=== PATIENT | male | born 1940 | race Caucasian/White ===

== ENCOUNTER 2018-02-07 09:50 | Inpatient (IN) | payer OTHER ==
--- NOTE | 2018-02-07 11:31 | RAD REPORT ---
EXAM DESCRIPTION: RAD - Knee Right 3 View - 02/07/2018 11:26 am CLINICAL HISTORY: Knee pain COMPARISON: None. FINDINGS: Arthritic changes are present, greatest in the medial joint compartment with joint space l oss and small osteophytes. Small suprapatellar joint effusion is seen. Slight atherosclerosis is note d.
[2018-02-07] MEDS ORDERED: ONDANSETRON 4 MG/2 ML VIAL ONE (12:10)
[2018-02-07] MEDS ORDERED: FENTANYL CITR 100 MCG/2 ML ONE ×2 (12:10→16:44)
[2018-02-07] MEDS ORDERED: LIDOCAINE 1% 20 ML MDV ONE (12:30)
[2018-02-07 13:08] LABS: Absolute Lymphocytes (CBC) 1.5 K/uL (0.7-4.9); Absolute Monocytes 1.5 K/uL (0.1-1.3); Absolute Neutrophil 9.3 K/uL (1.8-8.0); Basophils % 1.2 % (0-1.3); Eosinophils % 3.2 % (0-4.4); Hematocrit 42.2 % (39.6-49.0); Lymphocytes % 11.9 % (15.3-44.8); MCH 29.9 pg (27.0-35.0); MCV 92.3 fL (80-100); MPV 8.4 fL (7.6-11.3); Monocytes % 11.7 % (3.3-12.3); RBC Red Blood Cell Count 4.58 M/uL (4.33-5.43)
[2018-02-07 13:21] LABS: BUN Blood Urea Nitrogen 10 mg/dL (6-20); Bicarbonate 26 mEq/L (21-31); Glucose Level 145 mg/dL (65-120); Potassium 4.2 mEq/L (3.6-5.0); Sodium Level 137 mEq/L (135-145)
[2018-02-07 15:10] LABS: Appearance TURBID (CLEAR); Body Fluid Source SYNOVIAL; Body Fluid WBC 65830 /mm^3; Color of fluid White (COLORLESS)
[2018-02-07] MEDS ORDERED: MORPHINE 4 MG/ML SYR ONE (15:20)
[2018-02-07] MEDS ORDERED: VANCOMYCIN/NS 1 gm 1 GM/250 ML BAG ONE (16:12)
[2018-02-07] MEDS ORDERED: CLINDAMYCIN 900MG/D5W 900 MG/50 ML BAG IV ONE (16:12)
--- NOTE | 2018-02-07 16:14 | ER ---
Nurse's Notes [facility] Name: Guero Ernst Age: 77 yrs Sex: Male : 1940 Arrival Date: 02/07/2018 Time: 09:53 Bed 14 Private MD: Fortunato Jiménez Diagnosis: Septic Arthritis of Right Knee Presentation: 02/07 10:25 Presenting complaint: Patient states: Right knee pain and swelling since Monday. Seen aj at [facility] yesterday and had doppler, ruled out DVT. Sent by Dr Jiménez to this ER to rule out Gout. Transition of care: patient was not received from another setting of care. Onset of symptoms was February 04, 2018. Initial Sepsis Screen: Does the patient meet any 2 criteria? No. Patient's initial sepsis screen is negative. Does the patient have a suspected source of infection? No. Patient's initial sepsis screen is negative. Care prior to arrival: None. 10:25 Method Of Arrival: Wheelchair aj 10:25 Acuity: ALLEN 3 aj Triage Assessment: 10:29 General: Appears in no apparent distress. comfortable, Behavior is calm, cooperative, aj appropriate for age. Pain: Complains of pain in right knee. Neuro: Level of Consciousness is awake, alert, obeys commands, Oriented to person, place, time, situation, Appropriate for age. Respiratory: Airway is patent Respiratory effort is even, unlabored, Respiratory pattern is regular, symmetrical. Derm: Skin is intact, is healthy with good turgor, Skin is pink, warm \T\ dry. normal. 10:29 Musculoskeletal: Swelling present in right knee Reports pain in right knee. aj Historical: - Allergies: 10: No Known Allergies; aj - Home Meds: 10: losartan 25 mg oral tab 1 tab once daily [Active]; Xarelto 20 mg oral tab 1 tab once aj daily [Active]; carvedilol 25 mg oral tab 1 tab 2 times per day [Active]; atorvastatin 80 mg oral tab 1 tab once daily [Active]; amiodarone 200 mg Oral tab 1 tab 2 times per day [Active]; omeprazole 20 mg Oral cpDR 1 cap once daily [Active]; - PMHx: 10: Atrial Fib; Hyperlipidemia; Hypertension; aj - PSHx: 10: PVI; shoulder; Cholecystectomy; aj - Immunization history:: Adult Immunizations up to date. - Social history:: Smoking status: Patient/guardian denies using tobacco. Screenin:38 Abuse screen: Denies threats or abuse. Denies injuries from another. Nutritional hj screening: No deficits noted. Tuberculosis screening: No symptoms or risk factors identified. Fall Risk None identified. Assessment: 10:29 General: Appears in no apparent distress. uncomfortable, Behavior is calm, cooperative, hj appropriate for age. Pain: Complains of pain in posterior aspect of right knee and right knee. Neuro: Level of Consciousness is awake, alert, obeys commands, Oriented to person, place, time, situation, none. Cardiovascular: Capillary refill < 3 seconds Patient's skin is warm and dry. Respiratory: Airway is patent Respiratory effort is even, unlabored, Respiratory pattern is regular, symmetrical. GI: No signs and/or symptoms were reported involving the gastrointestinal system. : No signs and/or symptoms were reported regarding the genitourinary system. EENT: No signs and/or symptoms were reported regarding the EENT system. Derm: No signs and/or symptoms reported regarding the dermatologic system. Musculoskeletal: Reports pain in posterior aspect of right knee and right knee. 11:30 Reassessment: Patient and/or family updated on plan of care and expected duration. Pain hj level reassessed. Patient is alert, oriented x 3, equal unlabored respirations, skin warm/dry/pink. 12:30 Reassessment: Patient and/or family updated on plan of care and expected duration. Pain hj level reassessed. Patient is alert, oriented x 3, equal unlabored respirations, skin warm/dry/pink. aspiration done by provider;. 13:30 Reassessment: Patient and/or family updated on plan of care and expected duration. Pain hj level reassessed. Patient is alert, oriented x 3, equal unlabored respirations, skin warm/dry/pink. Patient states feeling better. Patient states symptoms have improved. 14:30 Reassessment: Patient and/or family updated on plan of care and expected duration. Pain hj level reassessed. Patient is alert, oriented x 3, equal unlabored respirations, skin warm/dry/pink. Patient states symptoms have improved. 15:04 Reassessment: Patient and/or family updated on plan of care and expected duration. Pain hj level reassessed. Patient is alert, oriented x 3, equal unlabored respirations, skin warm/dry/pink. awaiting results; Patient states symptoms have improved. 16:20 Reassessment: Patient and/or family updated on plan of care and expected duration. Pain hj level reassessed. Patient is alert, oriented x 3, equal unlabored respirations, skin warm/dry/pink. for OR;. 17:26 Reassessment: Patient and/or family updated on plan of care and expected duration. Pain hj level reassessed. Patient is alert, oriented x 3, equal unlabored respirations, skin warm/dry/pink. Patient is alert/active/playful, equal unlabored respirations, skin warm/dry/pink. report given to OR staff;. Vital Signs: 10:29 BP 122 / 60; Pulse 83; Resp 17; Temp 97.8; Pulse Ox 98% on R/A; Weight 99.79 kg; Height aj 6 ft. (182.88 cm); Pain 10/10; 11:30 BP 124 / 65; Pulse 81; Resp 18; Pulse Ox 100% on R/A; hj 12:30 BP 122 / 69; Pulse 85; Resp 18; Pulse Ox 100% on R/A; hj 13:30 BP 135 / 93; Pulse 87; Resp 18; Pulse Ox 100% on R/A; hj 14:30 BP 117 / 72; Pulse 73; Resp 18; Pulse Ox 100% on R/A; hj 15:05 BP 127 / 69; Pulse 80; Resp 18; Pulse Ox 100% on R/A; hj 17:26 BP 128 / 80; Pulse 84; Resp 18; Pulse Ox 100% on R/A; hj 10:29 Body Mass Index 29.84 (99.79 kg, 182.88 cm) aj ED Course: 09:53 Patient arrived in ED. mr 09:53 Fortunato Jiménez MD is Private Physician. mr 10:26 Triage completed. aj 10:29 Arm band placed on left wrist. Patient placed in waiting room. X-ray ordered. aj 11:00 Initial lab(s) drawn, by ED staff, sent to lab. Inserted saline lock: 24 gauge in left hj hand, using aseptic technique. Blood collected. 11:25 X-ray completed. Portable x-ray completed in exam room. Patient tolerated procedure sw well. 11:26 XRAY Knee RIGHT 3 view In Process Unspecified. EDMS 11:37 Tom Min RN is Primary Nurse. hj 11:38 Patient has correct armband on for positive identification. Placed in gown. Bed in low hj position. Call light in reach. Side rails up X 1. Adult w/ patient. 11:43 Francis Jones PA is PHCP. jr8 11:44 Thanh Chauhan MD is Attending Physician. jr8 16:12 Genny Pennington MD is Hospitalizing Provider. jr8 16:44 X-ray completed. Portable x-ray completed in exam room. Patient tolerated procedure ml well. 16:58 EKG done, by remediation technician. reviewed by Francis KAUR. at1 17:29 No provider procedures requiring assistance completed. Patient admitted, IV remains in hj place. intact. Administered Medications: 12:53 Drug: Zofran 4 mg Route: IVP; Site: left hand; hj 15:18 Follow up: Response: No adverse reaction hj 12:54 Drug: fentaNYL (PF) 75 mcg Route: IVP; Site: left hand; hj 15:18 Follow up: Response: No adverse reaction hj 13:40 Drug: Lidocaine (1 %) 1 vials Volume: 20 ml; Route: Infiltration; hj 15:17 Drug: morphine 4 mg Route: IVP; Site: left hand; hj 15:23 Follow up: Response: No adverse reaction; Pain is decreased hj 16:09 Drug: Clindamycin 900 mg Route: IVPB; Infused Over: 30 mins; Site: left hand; hj 17:12 Follow up: IV Status: Completed infusion hj 16:09 Not Given (Physician Discretion): LevaQUIN 500 mg 100 ml IVPB once over 60 mins jr8 17:12 Drug: vancoMYCIN 1 grams Route: IVPB; Infused Over: 2 hrs; Site: left hand; hj 17:12 Follow up: IV Status: Infusion continued upon admission hj Outcome: 16:13 Decision to Hospitalize by Provider. jr8 17:30 Admitted to OR accompanied by nurse, family with patient, via stretcher, with chart, hj Report called to SAM Mittal 17:30 Condition: stable 17:30 Instructed on the need for admit, Demonstrated understanding of instructions. 17:34 Patient left the ED. hj Signatures: Dispatcher [employer] EDKS Perlita Hallman RN RN aj Rivera, Maria mr Lopez, Francis Luna PA PA jr8 Perlita hernandes, inspector bicycle EKG Tat1 Nenita Baker Henry, RN RN hj
--- NOTE | 2018-02-07 16:14 | EDPHYS ---
Physician Documentation [facility] Name: Guero Ernst Age: 77 yrs Sex: Male : 1940 Arrival Date: 02/07/2018 Time: 09:53 Bed 14 Private MD: Fortunato Jiménez ED Physician Thanh Chauhan HPI: 02/07 14:36 This 77 yrs old Male presents to ER via Wheelchair with complaints of Knee jr8 Pain. 14:36 The patient presents with decreased range of motion, pain, swelling, tenderness. The jr8 complaints affect the posterior aspect of right knee. Context: The problem was sustained at home, resulted from an unknown cause, the patient can partially bear weight. Onset: The symptoms/episode began/occurred gradually, 2 day(s) ago. Modifying factors: The symptoms are alleviated by nothing. the symptoms are aggravated by movement, weight bearing, bending knee. Associated signs and symptoms: The patient has no apparent associated signs or symptoms. Severity of symptoms: At their worst the symptoms were moderate, in the emergency department the symptoms are unchanged. The patient has not experienced similar symptoms in the past. The patient has been recently seen by a physician:. Dr. Jiménez sent patient for further evaluation of swollen warm knee. Denies trauma. Had recent cardiovascular procedure. Had US DVT which was negative. . Historical: - Allergies: 10: No Known Allergies; aj - Home Meds: 10: losartan 25 mg oral tab 1 tab once daily [Active]; Xarelto 20 mg oral tab 1 tab once aj daily [Active]; carvedilol 25 mg oral tab 1 tab 2 times per day [Active]; atorvastatin 80 mg oral tab 1 tab once daily [Active]; amiodarone 200 mg Oral tab 1 tab 2 times per day [Active]; omeprazole 20 mg Oral cpDR 1 cap once daily [Active]; - PMHx: 10: Atrial Fib; Hyperlipidemia; Hypertension; aj - PSHx: : PVI; shoulder; Cholecystectomy; aj - Immunization history:: Adult Immunizations up to date. - Social history:: Smoking status: Patient/guardian denies using tobacco. ROS: 14:36 Eyes: Negative for injury, pain, redness, and discharge, ENT: Negative for injury, jr8 pain, and discharge, Neck: Negative for injury, pain, and swelling, Cardiovascular: Negative for chest pain, palpitations, and edema, Respiratory: Negative for shortness of breath, cough, wheezing, and pleuritic chest pain, Abdomen/GI: Negative for abdominal pain, nausea, vomiting, diarrhea, and constipation, Back: Negative for injury and pain, Skin: Negative for injury, rash, and discoloration, Neuro: Negative for headache, weakness, numbness, tingling, and seizure. 14:36 MS/extremity: Positive for decreased range of motion, pain, swelling, tenderness, warmth, Negative for ecchymosis, erythema. Exam: 14:36 Eyes: Pupils equal round and reactive to light, extra-ocular motions intact. Lids and jr8 lashes normal. Conjunctiva and sclera are non-icteric and not injected. Cornea within normal limits. Periorbital areas with no swelling, redness, or edema. ENT: Nares patent. No nasal discharge, no septal abnormalities noted. Tympanic membranes are normal and external auditory canals are clear. Oropharynx with no redness, swelling, or masses, exudates, or evidence of obstruction, uvula midline. Mucous membranes moist. Neck: Trachea midline, no thyromegaly or masses palpated, and no cervical lymphadenopathy. Supple, full range of motion without nuchal rigidity, or vertebral point tenderness. No Meningismus. Cardiovascular: Regular rate and rhythm with a normal S1 and S2. No gallops, murmurs, or rubs. Normal PMI, no JVD. No pulse deficits. Respiratory: Lungs have equal breath sounds bilaterally, clear to auscultation and percussion. No rales, rhonchi or wheezes noted. No increased work of breathing, no retractions or nasal flaring. Abdomen/GI: Soft, non-tender, with normal bowel sounds. No distension or tympany. No guarding or rebound. No evidence of tenderness throughout. Back: No spinal tenderness. No costovertebral tenderness. Full range of motion. Skin: Warm, dry with normal turgor. Normal color with no rashes, no lesions, and no evidence of cellulitis. Neuro: Awake and alert, GCS 15, oriented to person, place, time, and situation. Cranial nerves II-XII grossly intact. Motor strength 5/5 in all extremities. Sensory grossly intact. Cerebellar exam normal. Normal gait. 14:36 Musculoskeletal/extremity: Extremities: grossly normal except: noted in the right knee: decreased ROM, pain, swelling, tenderness, ROM: limited active range of motion, due to swelling, limited passive range of motion, limited active range of motion due to pain, limited passive range of motion due to pain, Circulation is intact in all extremities. Sensation intact. negative for erythema of knee . Vital Signs: 10:29 BP 122 / 60; Pulse 83; Resp 17; Temp 97.8; Pulse Ox 98% on R/A; Weight 99.79 kg; Height aj 6 ft. (182.88 cm); Pain 10/10; 11:30 BP 124 / 65; Pulse 81; Resp 18; Pulse Ox 100% on R/A; hj 12:30 BP 122 / 69; Pulse 85; Resp 18; Pulse Ox 100% on R/A; hj 13:30 BP 135 / 93; Pulse 87; Resp 18; Pulse Ox 100% on R/A; hj 14:30 BP 117 / 72; Pulse 73; Resp 18; Pulse Ox 100% on R/A; hj 15:05 BP 127 / 69; Pulse 80; Resp 18; Pulse Ox 100% on R/A; hj 17:26 BP 128 / 80; Pulse 84; Resp 18; Pulse Ox 100% on R/A; hj 10:29 Body Mass Index 29.84 (99.79 kg, 182.88 cm) aj Procedures: 14:39 Joint Treatment: Aspiration of right knee using 18 gauge needle, Lidocaine, Removed 30 jr8 ml's of yellow fluid, Dressed with band aid, Patient tolerated well. MDM: 11:44 Patient medically screened. jr8 15:28 Data reviewed: vital signs, nurses notes, lab test result(s). Data interpreted: Pulse jr8 oximetry: on room air is 100 %. Interpretation: normal. Counseling: I had a detailed discussion with the patient and/or guardian regarding: the historical points, exam findings, and any diagnostic results supporting the discharge/admit diagnosis, lab results. ED course: Dr. Caceres consulted and will see patient in ED . 16:12 ED course: Dr. Caceres saw patient in ED. Needs to go to OR for washout . jr8 02/07 11:56 Order name: CBC with Diff jr8 02/07 11:56 Order name: Basic Metabolic Panel jr8 02/07 11:56 Order name: CBC with Automated Diff; Complete Time: 13:52 EDMS 02/07 11:56 Order name: Basic Metabolic Panel EDMS 02/07 13:47 Order name: Fluid Crystals; Complete Time: 14:16 8 02/07 13:47 Order name: Fluid Cell Count,Body; Complete Time: 15:17 jr8 02/07 13:59 Order name: LAB Add On jr8 02/07 14:07 Order name: Miscellaneous Test Lab; Complete Time: 15:17 EDMS 02/07 14:15 Order name: Body Fluid Culture EDMS 02/07 16:08 Order name: Blood Culture Adult (2) jr8 02/07 16:30 Order name: Basic Metabolic Panel EDMS 02/07 16:30 Order name: Basic Metabolic Panel EDMS 02/07 10:25 Order name: XRAY Knee RIGHT 3 view; Complete Time: 11:44 02/07 16:08 Order name: XRAY Chest (1 view) 8 02/07 16:30 Order name: Basic Metabolic Panel EDMS 02/07 16:30 Order name: Basic Metabolic Panel EDMS 02/07 16:30 Order name: CBC with Automated Diff EDMS 02/07 16:30 Order name: CBC with Automated Diff EDMS 02/07 16:30 Order name: CBC with Automated Diff EDMS 02/07 16:30 Order name: CBC with Automated Diff EDMS 02/07 16:58 Order name: RAD; Complete Time: 17:02 EDMS 02/07 11:56 Order name: IV; Complete Time: 12:53 8 02/07 16:08 Order name: EKG - Nurse/Tech; Complete Time: 16:44 8 02/07 16:08 Order name: EKG; Complete Time: 16:16 8 02/07 16:30 Order name: CONS Pharmacy Consult EDMS 02/07 16:30 Order name: CONS Pharmacy Consult EDMS 02/07 16:30 Order name: CONS Physician Consult EDMS 02/07 16:30 Order name: [facility] Healthy EDMS Administered Medications: 12:53 Drug: Zofran 4 mg Route: IVP; Site: left hand; hj 15:18 Follow up: Response: No adverse reaction hj 12:54 Drug: fentaNYL (PF) 75 mcg Route: IVP; Site: left hand; hj 15:18 Follow up: Response: No adverse reaction hj 13:40 Drug: Lidocaine (1 %) 1 vials Volume: 20 ml; Route: Infiltration; hj 15:17 Drug: morphine 4 mg Route: IVP; Site: left hand; hj 15:23 Follow up: Response: No adverse reaction; Pain is decreased hj 16:09 Drug: Clindamycin 900 mg Route: IVPB; Infused Over: 30 mins; Site: left hand; hj 17:12 Follow up: IV Status: Completed infusion hj 16:09 Not Given (Physician Discretion): LevaQUIN 500 mg 100 ml IVPB once over 60 mins jr8 17:12 Drug: vancoMYCIN 1 grams Route: IVPB; Infused Over: 2 hrs; Site: left hand; hj 17:12 Follow up: IV Status: Infusion continued upon admission hj Disposition: 02/07/18 16:13 Hospitalization ordered by Genny Pennington for Inpatient Admission. Preliminary diagnosis is Septic Arthritis of Right Knee . - Bed requested for Telemetry/MedSurg (Inpatient). - Status is Inpatient Admission. hj - Condition is Stable. - Problem is new. - Symptoms have improved. UTI on Admission? No Addendum: 02/09/2018 06:43 Co-signature as Attending Physician, Thanh Chauhan MD I agree with the assessment and w a plan of care. Signatures: Dispatcher [employer] EDPerlita Knight RN RN aj Roszak, Josh, PA PA jr8 Tom Min RN RN hj Appiah, William, MD MD mn Corrections: (The following items were deleted from the chart) 02/07 17:34 16:13 Hospitalization Ordered by Genny Pennington MD for Inpatient Admission. Preliminary diagnosis is Septic Arthritis of Right Knee . Bed requested for Telemetry/MedSurg (Inpatient). Status is Inpatient Admission. Condition is Stable. Problem is new. Symptoms have improved. UTI on Admission? No. jr8
[2018-02-07] MEDS ORDERED: ACETAMINOPHEN 500 MG TAB PO PRN (16:22)
[2018-02-07] MEDS ORDERED: Morphine 2 MG/2 ML SYR IV PRN (16:22)
[2018-02-07] MEDS ORDERED: ONDANSETRON 4 MG/2 ML VIAL IV PRN ×3 (16:22→21:17)
[2018-02-07] MEDS ORDERED: VANCOMYCIN/NS 1 gm 1 GM/250 ML BAG IVPB SCH (16:30)
[2018-02-07] MEDS ORDERED: MIDAZOLAM HCL 2 MG/2 ML INJ ONE (16:44)
[2018-02-07] MEDS ORDERED: LIDOCAINE 2% MPF 5 ML VIAL ONE (16:44)
[2018-02-07] MEDS ORDERED: PROPOFOL 200 MG/20 ML VIAL IV ONE (16:44)
--- NOTE | 2018-02-07 16:58 | RAD REPORT ---
EXAM DESCRIPTION: RAD - Chest Single View - 02/07/2018 4:45 pm CLINICAL HISTORY: Chest pain. COMPARISON: 05/01/2012 FINDINGS: Portable technique limits examination quality. The lungs are grossly clear. The heart is normal in size. No displaced fractures.Left humeral prosthe sis noted. IMPRESSION: No acute intrathoracic process suspected.
[2018-02-07] MEDS ORDERED: NA CHLORIDE 0.9% 1,000 ML IV SCH (17:00)
[2018-02-07] MEDS ORDERED: VANCOMYCIN 1.5 GM in NA CHLORIDE 0.9% 500 ML IVPB ONE (17:00)
[2018-02-07] MEDS ORDERED: TRIAMCINOLONE ACETON 40 MG/ML VIAL ONE (17:07)
[2018-02-07] MEDS ORDERED: BUPIVACA 0.5%/EPI 0.0005%/PF 30 ML VIAL ONE (17:08)
[2018-02-07] MEDS ORDERED: Ringers Lactate 1,000 ML IV ONE (17:35)
--- NOTE | 2018-02-07 17:58 | EKG ---
Test Date: 2018-02-07 Test Time: 16:37:24 Paint Sprayer Sandblaster: RODRIGUEZ MEASUREMENT RESULTS: Intervals: Rate: 88 MD: QRSD: 96 QT: 374 QTc: 452 [place]: P: MD: QRS: -33 T: 58 INTERPRETIVE STATEMENTS: Atrial flutter with variable AV block Left axis deviation Anterior infarct, age undetermined Abnormal ECG Compared to ECG 08/16/2010 05:30:51 Left-axis deviation now present Myocardial infarct finding now present Sinus rhythm no longer present Sinus arrhythmia no longer present Ventricular premature complex(es) no longer present Electronically Signed On 02-07-18 17:57:43 CDT by Bhavin Flynn
[2018-02-07] MEDS ORDERED: Ringers Lactate 2,000 ML IV ONE (18:23)
--- NOTE | 2018-02-07 18:49 | P.BOP ---
Preoperative diagnosis: right knee septic arthritis Postoperative diagnosis: same Primary procedure: right knee arthoscopic debridement Estimated blood loss: 20 ccs Anesthesia: General Transferred to: Recovery Room Condition: Good
[2018-02-07] MEDS: MEPERIDINE HCL 50 MG/ML AMP ONE ×2 (19:15→19:25)
[2018-02-07] MEDS ORDERED: CEFEPIME 2 GM VIAL IV SCH (21:00)
[2018-02-07] MEDS: CEFEPIME/SWI 2gm 2 GM/20 ML SYR IVP SCH (21:00)
[2018-02-07] MEDS ORDERED: CEFEPIME/SWI 2gm 2 GM/20 ML SYR IVP SCH (21:00)
[2018-02-07] MEDS ORDERED: Morphine 2 MG/2 ML SYR ONE (21:10)
[2018-02-07] MEDS: Morphine 2 MG/2 ML SYR IV PRN (21:17)
[2018-02-07] MEDS: NA CHLORIDE 0.9% 1,000 ML IV SCH (21:25)
[2018-02-07] MEDS ORDERED: VANCOMYCIN 1.75 GM in NA CHLORIDE 0.9% 500 ML IVPB SCH (22:00)
[2018-02-08] MEDS: Morphine 2 MG/2 ML SYR IV PRN ×4 (00:47→22:29)
[2018-02-08] MEDS ORDERED: VANCOMYCIN 1.75 GM in NA CHLORIDE 0.9% 500 ML IVPB SCH (05:00)
[2018-02-08] MEDS: VANCOMYCIN 1.75 GM in NA CHLORIDE 0.9% 500 ML IVPB SCH ×2 (05:00→16:57)
--- NOTE | 2018-02-08 05:46 | OP ---
Date of Procedure: 02/07/2018 Surgeon: Kenneth Caceres MD Preoperative Diagnosis: Right knee septic arthritis. Postoperative Diagnosis: Right knee septic arthritis. Procedure: Right knee irrigation and debridement done arthroscopically. Estimated Blood Loss: 20 cc. Complications: There were no complications. Specimen: No pathology specimens sent Indications For Operation: Mr. Ernst is a 77-year-old male, who started having pain in his right knee on Monday. Unfortunately, this progressed. He was seen at [facility] where he had a Doppl er, which demonstrated no DVT. Also, he then had increasing pain related to his knee and was assesse d by his primary care physician, who stated he should go to the emergency room. In the emergency kendall m, he was found to have a hot, tense, swollen knee. It was aspirated by the emergency room staff and [place] [id number]. There were no crystals. On examination, he stil l had a tense effusion with erythema and pain with any movement or manipulation of his knee. Decisio n was made to proceed with arthroscopic irrigation and debridement of his knee. All risks, benefits, and alternatives were discussed with both his family and the patient also spoke with his cardiologis t as he has had a recent cardiac procedure. [place] said he did not feel that there was any kno wn contraindication. He is on Xarelto, but unfortunately will have to deal with this as I do not bel ieve that we could wait much longer with regard to his knee. Procedure In Detail: The patient was taken to the operating room, placed in supine position. Genera l anesthesia obtained by the staff. Following this, a well-padded tourniquet was placed on superior right thigh. His right lower extremity was prepped and draped in usual sterile fashion for the proce jarred. Following this, a standard superior medial arthroscopy portal was made with expression of appr oximately 100 cc of very turbid synovial fluid. This was followed by placement of inferior lateral a rthroscopy portal and placement of arthroscopic camera. The camera was then sequentially used to exa mine his knee including suprapatellar pouch, medial and lateral gutters, medial and lateral compartme nts as well as the notch of the patellofemoral joints. Pertinent positive include grade 2-3 arthriti s of the patellofemoral joint as well as diffusely throughout the knee. Also seen was some fraying o f the lateral meniscus. A standard inferior medial arthroscopy portal was then performed. The later al meniscus is somewhat frayed and it was debrided back to a firm, stable, well contoured base. Then , attention was turned to the synovium, which was debrided in a clockwise fashion from noon down acro ss near the 9 o'clock position. This was followed by establishment of a superior lateral arthroscopy portal to debride from a 9 o'clock position to the 12 o'clock position. Following this, a large Hem ovac drain was then placed into the knee. The other arthroscopic portals were then stapled shut. Th e tourniquet was released. There was found to be no real significant bleeding. A small amount of Ma rcaine was placed while the drain is clamped momentarily and hopes that the epinephrine may help a li ttle with the bleeding. The knee was then wrapped in a sterile dressing as well as lightly wrapped w ith an Samir wrap. The patient was awakened and taken to the recovery room in good condition. There w ere no complications. SE/MODL Voice ID: [id number] Report ID: [id number]
--- NOTE | 2018-02-08 05:54 | P.HP ---
Certification for Inpatient Patient admitted to: Inpatient With expected LOS: >2 Midnights Practitioner: I am a practitioner with admitting privileges, knowledge of patient current condition, hospital course, and medical plan of care. Services: Services provided to patient in accordance with Admission requirements found in Title 42 Section 412.3 of the Code of Federal Regulations Patient History Date of Service: 02/07/18 Reason for admission: septic arthritis History of Present Illness: Mr Ernst is a 77 years old male with history of chronic atrial fibrillation, HTN , and dylsipidemia, who about 3 days ago start having right knee pain. He noticed that was unable to move well his joint due to the pain. It become gradually swollen. The patient had fever and chills as well. No history of trauma. He went to see his PCP, Dr Jiménez, who after evaluation, sent him to ED for further diagnostic test. Lab work remarkable for leukocytosis. Arthrocentesis shows 65K WBC, turbid yellow fluid, consistent with septic joint. Dr Caceres was consulted and took the patient to OR for Arthroscopy. Allergies No Known Allergies Allergy (Verified 02/08/18 00:04) Home Medications: Atorvastatin Calcium 80 mg PO DAILY 04/25/12 Losartan Potassium 25 mg PO DAILY 04/25/12 Carvedilol 25 mg PO BID 04/26/12 Amiodarone HCl [Cordarone Tab] 200 mg PO BID 02/08/18 Omeprazole 20 mg PO DAILY 02/08/18 Rivaroxaban [Xarelto] 20 mg PO DAILY 02/08/18 - Past Medical/Surgical History Has patient received pneumonia vaccine in the past: No Diabetic: No -: Afib -: hyperlipidemia -: hypertension -: PVI -: shoulder surgery -: cholecystectomy - Social History Smoking Status: Former smoker Alcohol use: Yes CD- Drugs: No Caffeine use: Yes Place of Residence: Home Review of Systems 10-point ROS is otherwise unremarkable Physical Examination - Vital Signs Temperature: 98.6 F Blood Pressure: 128/72 Pulse: 96 Respirations: 16 Pulse Ox (%): 96 - Physical Exam General: Alert, In no apparent distress HEENT: Atraumatic, PERRLA, Mucous membr. moist/pink, EOMI, Sclerae nonicteric Neck: Supple, 2+ carotid pulse no bruit, No LAD, Without JVD or thyroid abnormality Respiratory: Clear to auscultation bilaterally, Normal air movement Cardiovascular: Regular rate/rhythm, Normal S1 S2 Gastrointestinal: Normal bowel sounds, No tenderness Musculoskeletal: Tenderness (right knee) Integumentary: No rashes Neurological: Normal speech, Normal strength at 5/5 x4 extr, Normal tone, Normal affect Lymphatics: No axilla or inguinal lymphadenopathy - Studies Laboratory Data (last 24 hrs) 02/07/18 12:53: Sodium 137, Potassium 4.2, BUN 10, Creatinine 0.81, Glucose 145 H 02/07/18 12:53: WBC 12.9 H, Hgb 13.7, Hct 42.2, Plt Count 250 Microbiology Data (last 24 hrs): 02/07/18 13:59 Body Fluid - Right Knee Gram Stain - Final Assessment and Plan - Problems (Diagnosis) (1) Septic arthritis Current Visit: Yes Status: Acute Qualifiers: Septic arthritis location: knee Septic arthritis organism: due to unspecified organism Laterality: right Qualified Code(s): M00.9 - Pyogenic arthritis, unspecified (2) HTN (hypertension) Current Visit: Yes Status: Acute Qualifiers: Hypertension type: essential hypertension Qualified Code(s): I10 - Essential (primary) hypertension (3) Dyslipidemia Current Visit: Yes Status: Acute (4) Chronic atrial fibrillation Current Visit: Yes Status: Acute - Plan The patient was admitted to the hospital and immediatelly had an arthroscopy with debriedement on his right knee. He is hemodynamically stable, blood and synovial fluid culture in process. Continue IV Vancomycin and Cefepime. - Advance Directives Does patient have a Living Will: No Does patient have a Durable POA for Healthcare: No - Code Status/Comfort Care Code Status Assessed: Yes Code Status: Full Code
[2018-02-08 06:11] LABS: Hematocrit 35.6 % (39.6-49.0); MCH 30.7 pg (27.0-35.0); MCV 91.3 fL (80-100); MPV 8.5 fL (7.6-11.3)
[2018-02-08 06:15] LABS: BUN Blood Urea Nitrogen 9 mg/dL (6-20); Bicarbonate 27 mEq/L (21-31); Glucose Level 135 mg/dL (65-120); Potassium 3.7 mEq/L (3.6-5.0); Sodium Level 135 mEq/L (135-145)
[2018-02-08 07:39] LABS: Blood Morphology Comment NOT SEEN (NOT SEEN); Platelet Estimate ADEQ
[2018-02-08] MEDS ORDERED: PNEUMOCOCCAL VACCINE 0.5 ML IMVAC ONE (08:00)
[2018-02-08] MEDS: NA CHLORIDE 0.9% 1,000 ML IV SCH ×2 (08:37→17:01)
[2018-02-08] MEDS: CEFEPIME/SWI 2gm 2 GM/20 ML SYR IVP SCH ×2 (08:37→20:22)
[2018-02-08] MEDS: CARVEDILOL 25 MG TAB PO SCH ×2 (08:37→20:24)
[2018-02-08] MEDS: ATORVASTATIN 80 MG TAB PO SCH (08:38)
[2018-02-08] MEDS: AMIODARONE HCL 200 MG TAB PO SCH ×2 (08:38→20:24)
--- NOTE | 2018-02-08 11:28 | CON ---
Date of Consultation: 02/07/2018 This is my first time seeing this patient to my knowledge. He is a 77-year-old gentleman, who unfort unately on Monday started having some pain in his right knee. He says his pain gradually increased in intensity until now. It is so intense that he really cannot move it, cannot walk, and has extrem e discomfort. He arrived to the emergency department and he had x-rays, which demonstrated some mild arthritic changes, but otherwise without abnormality other than swelling. He had an aspiration of h is knee, which demonstrated 55,000 white count with no crystals. He also had a Gram stain and cultur e, which is pending. His white count in the serum is 12,000. He does not appear acutely ill on phys ical examination; however, on physical examination, any slight movement of the knee causes extreme pa in. There is warmth, and although they did aspirate 35 cc of joint fluid. It still is erythematous and painful with continued effusion. Assessment: A 77-year-old gentleman, who now has probable septic arthritis of his right knee. I did speak with his beauty director, who is aware that he had cardiac cath with ablation approximately a wee k ago, who says that from a cardiac standpoint, he should be without increased risk from this. It sh ould also be noted that he is on Xarelto and took 20 mg of Xarelto last night. Plan: At this time, I believe that he most likely does have septic arthritis of his knee and there i s a great concern to believe this without operative correction and it will continue to worsen and cau se septic arthritis and may lead to osteomyelitis and could be limb threatening. Therefore, decision was made to move forward with operative intervention as soon as possible. This would be consistent of arthroscopic irrigation and debridement with tourniquet. The patient was told that he may experie nce some bleeding or hemarthrosis, but I believe it would be a better outcome to have a knee filled w ith blood and knee filled with pus and this could be managed. Otherwise, we will hold Xarelto. We w ill start him on broad-spectrum antibiotics. All the risks, benefits, and alternatives were discusse d with the patient's family. They state they understand things as presented and wished to proceed. /ZULEYKA Voice ID: [id number] Report ID: [id number]
--- NOTE | 2018-02-08 16:22 | PN ---
Date of Progress Note: 02/08/2018 Subjective: The patient seen and examined. Chart reviewed and case discussed with Dr. Caceres. T he patient tolerated knee debridement well yesterday. This morning, the patient still complains of s ome pain, states that he cannot put his foot down without pain; however, medications are helping. Th e patient recently had cardiac ablation for atrial fibrillation by Dr. Huynh. Review of Systems: Negative except as above. Medications: Reviewed. Physical Examination: Vital Signs: Temperature 98.5, heart rate 83, blood pressure 126/66, respirations 16, O2 97% on 2 L via nasal cannula. General: Awake, alert, oriented x3, in some mild distress. Obese male, BMI 30, elderly, ill-appeari ng. CV: S1, S2. Irregularly irregular. Peripheral pulses weak bilaterally. Respiratory: Clear to auscultation bilaterally. No wheezing. No stridor. No use of accessory musc les. Gastrointestinal: Abdomen is soft, nontender, and nondistended. Positive bowel sounds. Extremities: No clubbing, cyanosis, or edema. Neurologic: Nonfocal. Musculoskeletal: Right knee bandaged, clean, dry, and intact. Laboratory Data: Sodium 135, potassium 3.7, chloride 102, CO2 27, BUN 9, creatinine 0.77, glucose 13 5, calcium 8.5. Knee synovial fluid shows white count of 65,000, RBCs 8800, neutrophils 96%. No cry stals. WBC 11.1, H and H 12 and 35.6, platelets 234. Blood cultures preliminary show gram-positive cocci in clusters. Body fluid culture shows coagulase positive Staph aureus. Assessment And Plan: A 77-year-old male with: 1.Septic arthritis of the right knee status post debridement and washout by Dr. Caceres. Synovial fluid does show elevated white count, neutrophils. Cultures from blood and from the body fluid show Staph aureus. We will continue with broad-spectrum IV antibiotics, obtain ID consultation. 2.Essential hypertension, stable. 3.Dyslipidemia. Continue statin. 4.Chronic atrial fibrillation status post ablation therapy recently. We will cover for nosocomial i nfection with vancomycin and cefepime. Controlled ventricular rate. 5.Obesity, BMI 30. 6.Peripheral vascular disease. 7.Gastrointestinal and deep venous thrombosis prophylaxis. PPI. We will resume Xarelto [address] surgery. Plan: Follow up with ID and sensitivity, blood cultures, ID consultation, and obtain echocardiogram to rule out abnormalities with bacteria. /ZULEYKA Voice ID: [id number] Report ID: [id number]
--- NOTE | 2018-02-08 16:43 | ECHO ---
HEIGHT: 6 ft 0 in WEIGHT: 227 lb 3 oz DATE OF STUDY: 02/08/[address]: Kenneth Caceres MD 2-DIMENSIONAL: YES M.MODE: YES DOPPLER: YES COLOR FLOW: YES TDS: PORTABLE: DEFINITY: BUBBLE STUDY: DIAGNOSIS: ATRIAL FIBRILLATION CARDIAC HISTORY: CATHERIZATION: NO SURGERY: NO PROSTHETIC VALVE: NO PACEMAKER: NO MEASUREMENTS (cm) DIASTOLIC (NORMALS) SYSTOLIC (NORMALS) IVSd 1.3 (0.6-1.2) LA Diam 5.0 (1.9-4.0) LVEF 50-55% LVIDd 5.8 (3.5-5.7) LVIDs 4.4 (2.0-3.5) %FS 24% LVPWd 1.3 (0.6-1.2) Ao Diam 3.1 (2.0-3.7) 2 DIMENSIONAL ASSESSMENT: RIGHT ATRIUM: NORMAL LEFT ATRIUM: DILATED RIGHT VENTRICLE: NORMAL LEFT VENTRICLE: LEFT VENTRICULAR HYPERTROPHY TRICUSPID VALVE: NORMAL MITRAL VALVE: MITRAL ANNULAR CALCIFICATION PULMONIC VALVE: NORMAL AORTIC VALVE: SCLEROSIS PERICARDIAL EFFUSION: NONE AORTIC ROOT: NORMAL LEFT VENTRICULAR WALL MOTION: NORMAL DOPPLER/COLOR FLOW: MILD TRICUSPID REGURGITATION. NORMAL RIGHT VENTRICULAR SYSTOLIC PRESSURE. NO AORTIC STENOSIS OR AORTIC REGURGITATION. COMMENTS: NORMAL LEFT VENTRICULAR EJECTION FRACTION. LEFT VENTRICULAR HYPERTROPHY. DILATED LEFT ATRIUM. MITRAL ANNULAR CALCFICATION. AORTIC SCLEROSIS. MILD TRICUSPID REGURGITATION. ATRIAL FIBRILLATION. HEART RATE 70-80 BEATS PER MINUTE. TECHNOLOGIST: SHWETA RAVI
[2018-02-08] MEDS: RIVAROXABAN 20 MG TABLET PO SCH (16:58)
--- NOTE | 2018-02-08 18:58 | CON ---
History Of Present Illness: The patient is a 77-year-old male. I was consulted for right knee septi c arthritis. The patient had surgical debridement done earlier last night. The patient has signific ant history of atrial fibrillation, hyperlipidemia, hypertension, shoulder surgery, cholecystectomy. Denies any fall or any other trauma to the knee site. The patient feels that his discomfort started 3 days prior to admission, became worse that he could not even move his leg. Also, yellowish discha rge coming out of his knee. The patient had aspiration done in the emergency room, found to have 65, 000 white blood cell with no crystals. The patient also had arthroscopic irrigation and debridement of his knee. The patient continued to have discomfort in his right knee. Past Medical History: As per HPI. Social History: Former tobacco user, otherwise unremarkable. Medications: Include vancomycin and cefepime. Allergies: NO KNOWN DRUG ALLERGIES. Review of Systems: A 10-point review was performed. Physical Examination: General: This is a 77-year-old male, lying in bed, not in any acute cardiopulmonary distress. Vital Signs: Temperature 99, pulse 61, respirations 16, blood pressure 90/54. HEENT: Unremarkable. Neck: Supple. Lungs: Basilar crackles. Heart: S1, S2. Regular. Abdomen: Soft, nontender. Bowel sounds positive. Extremities: Right knee in surgical dressing with MI drain in place. Laboratory Data: Shows WBC 11,000 down from 12.9, platelets 234, hemoglobin 12. Chemistry shows sod ium 135, potassium 3.7, chloride 102, bicarb 27, BUN 9, creatinine 0.77, glucose 135. Micro data; bl ood cultures are growing gram-positive cocci in clusters. Right knee is also growing gram-positive c occi, Staph coag positive 1+. Chest x-ray shows no acute infiltrates. Knee x-ray shows arthritic ch anges are present, greatest in the medial joint compartment with joint space loss and small osteophyt es. Small suprapatellar joint effusion noted before surgery. Assessment And Plan: Septic arthritis secondary to Staphylococcus with bacteremia secondary to Staph ylococcus. Continue vancomycin and cefepime. The patient might need long-term IV antibiotic at this time 4-6 weeks. We will follow the patient closely. Thank you Dr. Pennington for consult. NASH/ZULEYKA Voice ID: [id number] Report ID: [id number]
[2018-02-08] MEDS: ACETAMINOPHEN 500 MG TAB PO PRN (20:23)
[2018-02-08 21:17] LABS: Urine Appearance CLEAR; Urine Bilirubin NEGATIVE (NEG); Urine Blood NEGATIVE (NEG); Urine Color YELLOW; Urine Glucose NEGATIVE (NEG); Urine Protein NEGATIVE (NEG); Urine pH 6.5 (5.0-7.0)
[2018-02-08 21:18] LABS: Urine Microscopic Reflex NO UMIC
[2018-02-09] MEDS: NA CHLORIDE 0.9% 1,000 ML IV SCH ×3 (04:00→21:50)
[2018-02-09 05:24] LABS: Potassium 3.7 mEq/L (3.6-5.0)
[2018-02-09 05:28] LABS: Absolute Monocytes 1.1 K/uL (0.1-1.3); Basophils % 0.4 % (0-1.3); Eosinophils % 2.8 % (0-4.4); Hematocrit 33.8 % (39.6-49.0); Lymphocytes % 10.6 % (15.3-44.8); MCH 31.6 pg (27.0-35.0); MCV 92.3 fL (80-100); MPV 8.8 fL (7.6-11.3); Monocytes % 11.5 % (3.3-12.3); RBC Red Blood Cell Count 3.66 M/uL (4.33-5.43)
[2018-02-09] MEDS: ACETAMINOPHEN 500 MG TAB PO PRN (05:51)
[2018-02-09] MEDS: VANCOMYCIN 1.75 GM in NA CHLORIDE 0.9% 500 ML IVPB SCH ×2 (05:51→18:31)
[2018-02-09 06:15] VITALS: BMI 30.5
[2018-02-09] MEDS ORDERED: HOME MED 1 EA UNK (Omeprazole [Omeprazole] 20 MG) PO SCH (09:00)
[2018-02-09] MEDS ORDERED: HOME MED 1 EA UNK (Losartan Potassium [Losartan Potassium] 25 MG) PO SCH (09:00)
[2018-02-09] MEDS: AMIODARONE HCL 200 MG TAB PO SCH ×2 (09:37→21:50)
[2018-02-09] MEDS: PANTOPRAZOLE 40MG TABLET PO SCH (09:37)
[2018-02-09] MEDS: ATORVASTATIN 80 MG TAB PO SCH (09:37)
[2018-02-09] MEDS: CARVEDILOL 25 MG TAB PO SCH ×2 (09:38→21:49)
[2018-02-09] MEDS: LOSARTAN POTASSIUM 50 MG TABLET PO SCH (09:38)
[2018-02-09] MEDS: CEFEPIME/SWI 2gm 2 GM/20 ML SYR IVP SCH ×2 (09:40→21:49)
[2018-02-09] MEDS ORDERED: POLYETHYL GLY 3350 17 GM/DOSE PO PRN (10:58)
[2018-02-09] MEDS: DOCUSATE NA 100 MG CAP PO SCH ×2 (11:30→21:49)
[2018-02-09] MEDS: Morphine 2 MG/2 ML SYR IV PRN ×3 (11:30→21:51)
--- NOTE | 2018-02-09 15:41 | RAD REPORT ---
EXAM DESCRIPTION: MRI - Shoulder Left Wo Cont - 02/09/2018 3:36 pm CLINICAL HISTORY: Sepsis, shoulder pain COMPARISON: None. FINDINGS: Marked blooming artifact is present from left humeral prosthesis. This significantly limit s the study. No soft tissue mass or fluid collection/ abscess is suspected. No intramuscular fluid or lesion ident ified. IMPRESSION: Extremely limited study due to blooming artifact from humeral prosthesis. No concerning soft tissue abnormality is discerned about the prosthesis.
--- NOTE | 2018-02-09 16:49 | PN ---
Date of Progress Note: 02/09/2018 Subjective: The patient is seen and examined, chart reviewed and case discussed with RN and Dr. Edmar osman. The patient states his pain is significantly better. Reports that he is constipated. After que stioning him regarding any hardware in the body, states that he has had a shoulder derangement and gottlieb s metal hardware in his left shoulder. Review of Systems: Negative except as above. Medications: Reviewed. Objective: Vital Signs: T-max 101.1 yesterday evening 8:00 p.m., T-current is 97.4, heart rate 77, blood pressure 109/66, respirations 20, and O2 98% on 2 L via nasal cannula. General: Awake, alert, oriented x3. Some mild distress. Elderly male, obese, ill-appearing. CV: S1, S2. Irregularly irregular. Peripheral pulses present. Respiratory: Diminished breath sounds at the bases. No wheezing, crackles. Gastrointestinal: Abdomen is soft, nontender, nondistended. Positive bowel sounds. Extremities: No clubbing, cyanosis, edema. Musculoskeletal: Right knee bandaged, clean, dry, intact. Neurologic: Nonfocal. Laboratory Data: Sodium 137, potassium 3.7, chloride 100, CO2 28, BUN 10, creatinine 0.85, glucose 1 20, and calcium 8.3. WBC 9.4, H and H 11.6, 33.8, platelets 227, and neutrophils 74.7%. Microbiolog y, body fluid, right knee shows MSSA. His blood cultures prelim shows staph aureus, sensitivity pend ing. Echocardiogram shows EF 50-55%. Left ventricular hypertrophy. Assessment And Plan: A 77-year-old male with; 1.Septic arthritis of the right knee, status post debridement and washout by Dr. Caceres. The pat ient's synovial fluid cultures growing methicillin-sensitive staphylococcus aureus. We will continue with IV antibiotics. The patient does have hardware in the left shoulder. We will obtain MRI to ru le out any active infection. The patient will likely need long-term IV antibiotics to prevent seedin g in the hardware. Echocardiogram did not show any vegetation. Appreciate ID input. 2.Bacteremia gram-positive with Staphylococcus aureus. Sensitivities pending. 3.Essential hypertension, stable. 4.Dyslipidemia, statin. 5.Chronic atrial fibrillation, status post recent ablation therapy. 6.Obesity, body mass index 30. 7.Peripheral vascular disease. 8.Gastrointestinal and deep venous thrombosis prophylaxis with PPI. Xarelto has been resumed. Plan: We will obtain PICC line. Follow up with MRI. Will need to set up for long-term IV antibioti cs. MABLE Voice ID: [id number] Report ID: [id number]
--- NOTE | 2018-02-09 18:09 | RAD REPORT ---
EXAM DESCRIPTION: RAD - Chest Single View - 02/09/2018 6:00 pm CLINICAL HISTORY: PICC line placement COMPARISON: None. FINDINGS: Portable chest was obtained following placement of a right upper extremity PICC line. The catheter tip projects over the SVC.
--- NOTE | 2018-02-09 18:17 | PN ---
Date of Progress Note: 02/08/2018 Mr. Ernst is seen today. He says he still has some pain in his knee; however, it is easily alleviated with pain relieving medications. He has self discontinued his drain accidentally pulling out. Othe rwise, he is neurovascularly intact. Review of his laboratories revealed that he still has a slightl y high white count. Also, a listed pain level of 0. Also, white count has decreased from 12.9 to 11 .1. Also, microbiology demonstrates gram-positive cocci in clusters in the blood cultures. The knee fluid demonstrates 1+ Staph-coagulase positive. Assessment: I believe that he has by blood cultures bacteremia with Staphylococcus aureus. Also, mo st likely he does have septic arthritis of his knee from Staphylococcus aureus. We do not have any s ensitivities. I believe broad-spectrum antibiotics for Staphylococcus aureus are indicated. Also, meghan myles will consider consultation with Infectious Disease for the treatment of his knee. We will definite ly need culture specific antibiotics and observe it clinically. Also, could use the assistance of [facility] rgical and Infectious Disease for this. We will follow him while he is in the hospital. MOSHE Voice ID: [id number] Report ID: [id number]
[2018-02-09] MEDS: RIVAROXABAN 20 MG TABLET PO SCH (18:32)
[2018-02-09] MEDS ORDERED: BISACODYL E.C. 5 MG TAB PO PRN (21:00)
[2018-02-10] MEDS: Morphine 2 MG/2 ML SYR IV PRN ×4 (03:23→20:59)
[2018-02-10] MEDS: VANCOMYCIN 1.75 GM in NA CHLORIDE 0.9% 500 ML IVPB SCH ×2 (05:37→17:38)
[2018-02-10 06:04] LABS: Absolute Lymphocytes (CBC) 1.2 K/uL (0.7-4.9); Absolute Monocytes 1.2 K/uL (0.1-1.3); Absolute Neutrophil 7.2 K/uL (1.8-8.0); Basophils % 0.7 % (0-1.3); Hematocrit 30.4 % (39.6-49.0); Lymphocytes % 12.5 % (15.3-44.8); MCH 30.3 pg (27.0-35.0); MCV 91.7 fL (80-100); MPV 8.1 fL (7.6-11.3); Monocytes % 12.1 % (3.3-12.3); RBC Red Blood Cell Count 3.32 M/uL (4.33-5.43)
[2018-02-10 06:35] LABS: Potassium 3.4 mEq/L (3.6-5.0)
--- NOTE | 2018-02-10 06:42 | DS ---
Hospital Course: The patient is seen today. He appears to be doing well. He was slightly above nor mal temperature last night, temperature of 100.4. Apparently, now his fever appears to be breaking. He does have some complaints of pain in his right knee, but I think that these are appropriate given his surgery; otherwise, laboratories returned with sensitivities at least on one of the samples whic h demonstrate Staph aureus, which appears to be methicillin sensitive. We will await input from [facility] physician or Infectious Disease regarding use of antibiotics, possible long-term antibiotics because of bacteremia or other considerations. Otherwise, continue him on current plan. We will al so consult Physical Therapy, also ask Nursing to go ahead and change out his dressing to a smaller st erile dressing. MOSHE Voice ID: [id number] Report ID: [id number]
[2018-02-10] MEDS: PANTOPRAZOLE 40MG TABLET PO SCH (07:54)
[2018-02-10] MEDS: POLYETHYL GLY 3350 17 GM/DOSE PO SCH (07:54)
[2018-02-10] MEDS: DOCUSATE NA 100 MG CAP PO SCH ×2 (07:55→20:58)
[2018-02-10] MEDS: ATORVASTATIN 80 MG TAB PO SCH (07:55)
[2018-02-10] MEDS: CARVEDILOL 25 MG TAB PO SCH ×2 (07:56→21:03)
[2018-02-10] MEDS: LOSARTAN POTASSIUM 50 MG TABLET PO SCH (07:56)
[2018-02-10] MEDS: AMIODARONE HCL 200 MG TAB PO SCH ×2 (07:56→20:59)
[2018-02-10] MEDS: CEFEPIME/SWI 2gm 2 GM/20 ML SYR IVP SCH ×2 (08:10→20:58)
[2018-02-10] MEDS: NA CHLORIDE 0.9% 1,000 ML IV SCH (10:00)
--- NOTE | 2018-02-10 14:42 | PN ---
Date of Progress Note: 02/10/2018 Subjective: The patient is seen and examined. Chart reviewed and case discussed with RN, the sukhi henry and Dr. Persaud. The patient doing well. States his pain is much better; however, still has not am bulated. Review of Systems: Negative except as above. Medications: Reviewed. Physical Examination: Vital Signs: Temperature 100.4, heart rate 89, blood pressure 124/68, respiration 20, O2 94% on room air. General: Awake, alert, oriented x3. No acute distress. Elderly male, obese, BMI 30. CV: S1, S2. Irregularly irregular. Peripheral pulses present. No murmurs. Respiratory: Clear to auscultation bilaterally. No wheezing. No stridor. Gastrointestinal: Abdomen is soft, nontender, nondistended. Positive bowel sounds. No guarding or rigidity. Extremities: No clubbing, cyanosis, edema. Musculoskeletal: Right knee in surgical bandage, clean, dry, intact. Neurologic: Nonfocal. Laboratory Data: Sodium 137, potassium 3.4, chloride 103, CO2 29, BUN 12, creatinine 0.89, glucose 1 57, calcium 8.3. WBC 9.7, H and H 10.1, 30.4, platelets 239, neutrophils 73%. Blood cultures growin g MSSA. Body fluid from the right knee also growing MSSA. MRI of the shoulder, extremely limited study due to blooming artifact from humeral prosthesis. No co ncerning soft tissue abnormalities discerning about the prosthesis. Chest x-ray personally reviewed shows portable chest after placement of PICC line in place. Assessment And Plan: A 77-year-old male with: 1.Septic arthritis of the right knee, status post debridement by Dr. Caceres. The patient doing w ell. Cultures growing MSSA. We will continue IV antibiotics. Appreciate ID input. The patient lana l need long-term IV antibiotics for 4-6 weeks. He does have hardware in the left shoulder. MRI did not show any acute abnormalities. PICC line has been placed. We will discuss with social professionals joana acin placement options and long-term IV antibiotics set up. 2.Staph aureus bacteremia. We will continue IV antibiotics. Echo did not show any abnormalities. 3.Essential hypertension, stable. 4.Dyslipidemia, statin. 5.Chronic atrial fibrillation, status post recent ablation therapy, controlled ventricular rate. 6.Obesity, BMI 30. 7.Peripheral vascular disease. 8.Gastrointestinal and deep venous thrombosis prophylaxis with PPI and continue Xarelto for atrial f ibrillation. Plan: Possible SNF versus LTAC placement. /ZULEYKA Voice ID: [id number] Report ID: [id number]
[2018-02-10] MEDS: RIVAROXABAN 20 MG TABLET PO SCH (17:38)
--- NOTE | 2018-02-11 01:55 | DS ---
Subjective: This the patient is seen today. He is alert and cooperative. His dressing is clean, dr y, and intact. Gentle movement of the knee causes some slight discomfort, which I expect after arthr oscopy but no further increased pain. It does not show any sign of tense hemarthrosis. He has been a little hot but he was not really febrile with his T-max being 100.4, currently at 99.4. His white count now has normalized at 9.7. All of his cultures have come back including aerobic, anaerobic, an d knee aspirates as Methicillin-sensitive Staphylococcus aureus. He does now have a PICC line. He h as had an MRI of his shoulder for unknown reason. He does not really appear to have any pain or prob lems with the shoulder. The MRI itself does show significant blooming artifact. It is very difficul t to interpret, but I do not think that he has any clinical findings that would indicate any seeding or infection of the shoulder. Assessment: The patient with Methicillin-sensitive Staphylococcus aureus septic arthritis as well as Staph aureus bacteremia. His clinical course has been good up until now. There is some discussion that he will be discharged with IV antibiotics. I think he should follow up with the recommendations of Surgical Infectious Disease and probably have him come to see me in my office next week if he is discharged over the weekend. Call my office for time. I have discussed all this with the patient an d family. They state they understand things as presented. /ZULEYKA Voice ID: [id number] Report ID: [id number]
[2018-02-11] MEDS: VANCOMYCIN 1.75 GM in NA CHLORIDE 0.9% 500 ML IVPB SCH ×2 (04:49→16:56)
[2018-02-11] MEDS: Morphine 2 MG/2 ML SYR IV PRN (04:50)
[2018-02-11 05:17] LABS: Absolute Lymphocytes (CBC) 0.9 K/uL (0.7-4.9); Absolute Monocytes 0.9 K/uL (0.1-1.3); Absolute Neutrophil 5.9 K/uL (1.8-8.0); Basophils % 0.9 % (0-1.3); Eosinophils % 5.1 % (0-4.4); Hematocrit 30.7 % (39.6-49.0); Lymphocytes % 11.4 % (15.3-44.8); MCV 92.4 fL (80-100); MPV 8.1 fL (7.6-11.3); Monocytes % 11.3 % (3.3-12.3); RBC Red Blood Cell Count 3.32 M/uL (4.33-5.43)
[2018-02-11 06:06] LABS: BUN Blood Urea Nitrogen 11 mg/dL (6-20); Bicarbonate 28 mEq/L (21-31); Glucose Level 133 mg/dL (65-120); Potassium 3.4 mEq/L (3.6-5.0); Sodium Level 138 mEq/L (135-145)
[2018-02-11] MEDS: LOSARTAN POTASSIUM 50 MG TABLET PO SCH (08:06)
[2018-02-11] MEDS: PANTOPRAZOLE 40MG TABLET PO SCH (08:06)
[2018-02-11] MEDS: HYDROCODONE/APAP 7.5/325 MG TAB PO PRN ×3 (08:07→20:43)
[2018-02-11] MEDS: CARVEDILOL 25 MG TAB PO SCH ×2 (08:07→21:39)
[2018-02-11] MEDS: POLYETHYL GLY 3350 17 GM/DOSE PO SCH (08:07)
[2018-02-11] MEDS: AMIODARONE HCL 200 MG TAB PO SCH ×2 (08:07→21:39)
[2018-02-11] MEDS: DOCUSATE NA 100 MG CAP PO SCH ×2 (08:07→21:39)
[2018-02-11] MEDS: CEFEPIME/SWI 2gm 2 GM/20 ML SYR IVP SCH ×2 (10:12→21:39)
[2018-02-11] MEDS: ATORVASTATIN 80 MG TAB PO SCH (10:12)
--- NOTE | 2018-02-11 13:04 | PN ---
Date of Progress Note: 02/11/2018 Subjective: The patient is seen and examined. Chart reviewed and case discussed with RN. The patie nt is complaining of pain. P.o. medications have been added. The patient did get up and was able to walk to the potty chair. He had a good night. Review of Systems: Negative except as above. Medications: Reviewed. Objective: Vital Signs: Temperature 97.4, heart rate 86, blood pressure 170/86, respirations 20, O2 98% on nasal cannula 2 L. General: Awake, alert, oriented x3, in no acute distress. Elderly male, obese, BMI 30. CV: S1 and S2. No murmurs. Irregularly irregular. Peripheral pulses present. Respiratory: Moving air well bilaterally. No wheezing. Gastrointestinal: Abdomen is soft, nontender, and nondistended. Positive bowel sounds. Extremities: No clubbing, cyanosis, or edema. Musculoskeletal: Right knee is bandaged. Neurologic: Nonfocal. Laboratory Data: Sodium 138, potassium 3.4, chloride 105, CO2 28, BUN 11, creatinine 0.8, glucose 13 3, calcium 8.3. WBC 8.2, hemoglobin and hematocrit of 10 and 30.7, platelets 230. Blood cultures an d body fluid culture from the right knee showed Staph aureus. Assessment: A 77-year-old male with: 1.Right knee septic arthritis, status post debridement. Cultures growing methicillin-susceptible St aphylococcus aureus. Will need long-term IV antibiotics due to hardware present in the shoulder. PI CC line has been placed. 2.Methicillin-susceptible Staphylococcus aureus bacteremia. Continue IV antibiotics. Echo normal. 3.Essential hypertension, stable. 4.Dyslipidemia, on statin. 5.Chronic atrial fibrillation, status post recent ablation therapy, controlled ventricular rate, on anticoagulation. 6.Obesity, body mass index of 30. 7.Peripheral vascular disease. 8.Gastrointestinal and deep venous thrombosis prophylaxis with proton pump inhibitor and Xarelto. Plan: LTAC versus SNF for a long-term IV antibiotics. /KVNGL Voice ID: [id number] Report ID: [id number]
[2018-02-11 15:17] VITALS: O2SAT 94
[2018-02-11] MEDS: RIVAROXABAN 20 MG TABLET PO SCH (16:56)
--- NOTE | 2018-02-11 20:01 | PN ---
Subjective: The patient is lying in bed, continue to have some discomfort, feels much better today. Denies any headache, nausea, vomiting, chest pain, abdominal pain, constipation, or diarrhea. Objective: Vital Signs: Temperature 98.4, pulse 69, respiration 18, blood pressure 100/64. Lungs: Basal crackles. Heart: S1, S2. Regular. Abdomen: Soft, nontender. Bowel sounds positive. Extremity: Right knee with swelling. Nine sofía noted in the site of arthroscopic surgical site. Laboratory Data: Shows WBC 8.2, hemoglobin 10, platelets 230. Chemistry shows sodium 138, potassium 3.4, chloride 105, bicarb 28, BUN 11, creatinine 0.84, glucose 133. Micro data shows Staph aureus g saman in blood culture and body fluids sensitive to multiple antibiotics at this time including Augme ntin, Cipro, clindamycin, oxacillin, Zithromax, Unasyn, Levaquin, vancomycin, cefazolin, rifampin. Current Medications: Include cefepime and vancomycin. Assessment And Plan: Staph bacteremia and right knee have Staph infection. Recommends 6 weeks of IV antibiotic, can be switched to Unasyn 3 g q.6 hours. We will follow the patient closely. Consider long-term acute care for patient. NF/MODL Voice ID: [id number] Report ID: [id number]
[2018-02-12] MEDS: HYDROCODONE/APAP 7.5/325 MG TAB PO PRN (02:19)
[2018-02-12] MEDS: VANCOMYCIN 1.75 GM in NA CHLORIDE 0.9% 500 ML IVPB SCH (04:11)
[2018-02-12 04:59] LABS: Absolute Lymphocytes (CBC) 1.1 K/uL (0.7-4.9); Absolute Monocytes 0.8 K/uL (0.1-1.3); Absolute Neutrophil 5.2 K/uL (1.8-8.0); Basophils % 0.9 % (0-1.3); Hematocrit 28.4 % (39.6-49.0); Lymphocytes % 14.3 % (15.3-44.8); MCH 30.2 pg (27.0-35.0); MCV 91.9 fL (80-100); MPV 8.1 fL (7.6-11.3); Monocytes % 10.2 % (3.3-12.3); RBC Red Blood Cell Count 3.09 M/uL (4.33-5.43)
[2018-02-12 05:09] LABS: BUN Blood Urea Nitrogen 9 mg/dL (6-20); Bicarbonate 30 mEq/L (21-31); Glucose Level 131 mg/dL (65-120); Potassium 3.3 mEq/L (3.6-5.0); Sodium Level 139 mEq/L (135-145)
[2018-02-12] MEDS: ATORVASTATIN 80 MG TAB PO SCH (08:29)
[2018-02-12] MEDS: CARVEDILOL 25 MG TAB PO SCH (08:29)
[2018-02-12] MEDS: DOCUSATE NA 100 MG CAP PO SCH (08:29)
[2018-02-12] MEDS: PANTOPRAZOLE 40MG TABLET PO SCH (08:30)
[2018-02-12] MEDS: POLYETHYL GLY 3350 17 GM/DOSE PO SCH (08:30)
[2018-02-12] MEDS: LOSARTAN POTASSIUM 50 MG TABLET PO SCH (08:30)
[2018-02-12] MEDS: AMIODARONE HCL 200 MG TAB PO SCH (08:30)
[2018-02-12] MEDS: CEFEPIME/SWI 2gm 2 GM/20 ML SYR IVP SCH (10:18)
[2018-02-12] MEDS: RIVAROXABAN 20 MG TABLET PO SCH (16:51)
[2018-02-12] MEDS ORDERED: AMPICILLIN/SULBACT 3 GM in NA CHLORIDE 0.9% 100 ML IVPB SCH (18:00)
[2018-02-12 18:02] VITALS: BP 126/80; TEMP 99.8
--- NOTE | 2018-02-12 18:13 | PN ---
Subjective: The patient lying in bed, continued to have discomfort, but able to walk much better as per . No new acute event. Objective: Vital Signs: Temperature 97, pulse 97, respirations 16, blood pressure 191/83. Lungs: Clear to auscultation. Heart: S1, S2. Regular. Abdomen: Soft, nontender. Bowel sounds positive. Extremities: Right knee with swelling noted. Laboratory Data: Shows WBC 7.9, hemoglobin 9.3, platelets 246. Chemistry shows sodium 139, potassiu m 3.3, chloride 103, bicarb 30, BUN 9, creatinine 0.7, glucose is 131. Microdata is a Staph aureus i n blood and knee fluid. Current antibiotic includes Unasyn q.6 hours. Assessment And Plan: Right septic knee with Staph and bacteremia with Staph. Continue antibiotic an d supportive care total course of 6 weeks. Have the patient labs done. CBC and BMP every Mondays an d and follow up with primary care. NF/MODL Voice ID: [id number] Report ID: [id number]
--- NOTE | 2018-02-12 19:00 | P.DS ---
Admission Date: 02/07/18 Discharge Date: 02/12/18 Disposition: DC HOME/HOME HEALTH CARE Discharge Condition: GOOD Reason for Admission: septic arthritis Consultations: Ortho ID Procedures: S/P I&D Brief History of Present Illness: See HPI Hospital Course: Discharge Diagnosis: 1. Right knee septic arthritis, status post debridement. Cultures growing methicillin-susceptible Staphylococcus aureus. 2. Methicillin-susceptible Staphylococcus aureus bacteremia. 3.Essential hypertension, stable. 4.Dyslipidemia, on statin. 5.Chronic atrial fibrillation, status post recent ablation therapy, controlled ventricular rate, on anticoagulation. 6.Obesity, body mass index of 30. 7.Peripheral vascular disease. 8.Gastrointestinal and deep venous thrombosis prophylaxis with proton pump inhibitor and Xarelto. Hospital Course: Overall during the hospital course patient remained stable Patient initially was admitted to the hospital for right knee septic arthritis. Patient had debridement done with orthopedic surgeon. Wound cultures were positive for MSSA. Patient was started on unison here in the hospital. Patient was given the opportunity to go to end long-term acute care facility for wound care along with IV antibiotics however patient stated that he would like to go home and will be doing a IV antibiotics at home with home health and his will help him with the wound care is well. Agustin Zamorano was contacted and Unasyn was started and patient was then discharged home under stable condition. Patient was asked to follow up with wound care clinic here in the hospital for wound care. While here in the hospital patient also had blood cultures done which were also positive for MSSA. ID was consulted and agreed with the above mentioned plan. All other chronic conditions remained stable while patient was here in the hospital. Vital Signs/Physical Exam: Temp Pulse Resp BP Pulse Ox 99.8 F 74 16 126/80 92 02/12/18 16:00 02/12/18 16:00 02/12/18 16:00 02/12/18 16:00 02/12/18 16:00 General: Alert, In no apparent distress HEENT: Atraumatic, PERRLA, EOMI Neck: Supple, JVD not distended Respiratory: Clear to auscultation bilaterally, Normal air movement Cardiovascular: Regular rate/rhythm, Normal S1 S2 Gastrointestinal: Normal bowel sounds, No tenderness Musculoskeletal: No tenderness Integumentary: No rashes Neurological: Normal speech, Normal tone, Normal affect Lymphatics: No axilla or inguinal lymphadenopathy Laboratory Data at Discharge: WBC 7.9 K/uL (4.3-10.9) 02/12/18 04:15 Hgb 9.3 g/dL (13.6-17.9) L 02/12/18 04:15 Hct 28.4 % (39.6-49.0) L 02/12/18 04:15 Plt Count 246 K/uL (152-406) 02/12/18 04:15 Sodium 139 mEq/L (135-145) 02/12/18 04:15 Potassium 3.3 mEq/L (3.6-5.0) L 02/12/18 04:15 BUN 9 mg/dL (6-20) 02/12/18 04:15 Creatinine 0.75 mg/dL (0.61-1.24) 02/12/18 04:15 Glucose 131 mg/dL (65-120) H 02/12/18 04:15 Home Medications: Atorvastatin Calcium 80 mg PO DAILY 04/25/12 Losartan Potassium 25 mg PO DAILY 04/25/12 Carvedilol 25 mg PO BID 04/26/12 Amiodarone HCl [Cordarone*] 200 mg PO BID 02/08/18 Omeprazole 20 mg PO DAILY 02/08/18 Rivaroxaban [Xarelto*] 20 mg PO DAILY 02/08/18 Ampicillin/Sulb [Unasyn 3 gm/100 ml Ivpb] 3 gm IV Q6H 42 Days bag 02/12/18 Tramadol HCl [Ultram] 50 mg PO Q6HP PRN #10 tablet 02/12/18 New Medications: Ampicillin/Sulb [Unasyn 3 gm/100 ml Ivpb] 3 gm IV Q6H 42 Days bag Tramadol HCl [Ultram] 50 mg PO Q6HP PRN #10 tablet PRN Reason: Pain Patient Discharge Instructions: Please f.u with PCP and Dr Yung in 1 to 2 days post discharge. New medication. Unasyn 3g q6h for 6 weeks Diet: Regular Activity: Ad danielle Followup: Kenneth Caceres MD [ACTIVE - CAN ADMIT] - 1 Week (Follow up in office in 1 week. Call to schedule an appointment. )
== END 2018-02-12 18:08 | disposition home health service (06) | DRG 486 ==
LOC: ER 09:50 → ERHOLD 16:22 → UNDOADMIN 16:22 → 2ND 19:43
PROVIDERS: ADMIT Orthopaedic Surgery; ATTEND Family Medicine
PROC: 0SBC4ZZ Excision of Right Knee Joint, Percutaneous Endoscopic Approach (ICD-10-PCS; principal; 2018-02-07 16:00)
PROC: 02HV33Z Insertion of Infusion Device into Superior Vena Cava, Percutaneous Approach (ICD-10-PCS; 2018-02-09)
DX: M00.061 Staphylococcal arthritis, right knee (principal); R78.81 Bacteremia; B95.61 Methicillin susceptible Staphylococcus aureus infection as the cause of diseases classified elsewhere; I48.2 Chronic atrial fibrillation; I10 Essential (primary) hypertension; E78.5 Hyperlipidemia, unspecified; I73.9 Peripheral vascular disease, unspecified; E66.9 Obesity, unspecified; Z87.891 Personal history of nicotine dependence; Z68.30 Body mass index [BMI] 30.0-30.9, adult; Z28.21 Immunization not carried out because of patient refusal
CPT/HCPCS: 36415; 71045; 80048; 80202; 81003; 85025; 87040; 87070; 87077; 87186; 87205; 89050; 89060; 90670; 93005; 93306; 94760; 94762; 96365; 96375; 97163; 99285; J0295; J0692; J2175; J2250; J2270; J2405; J3010; J3301; J3370; J7030

== ENCOUNTER 2018-02-28 15:02 | Emergency (ER) | payer OTHER ==
[2018-02-28] MEDS ORDERED: NA CHLORIDE 0.9% 1,000 ML ONE (16:18)
[2018-02-28] MEDS ORDERED: FENTANYL CITR 100 MCG/2 ML ONE ×2 (16:18→19:21)
[2018-02-28 16:26] LABS: Absolute Lymphocytes (CBC) 1.7 K/uL (0.7-4.9); Absolute Monocytes 0.8 K/uL (0.1-1.3); Absolute Neutrophil 6.2 K/uL (1.8-8.0); Basophils % 1.1 % (0-1.3); Eosinophils % 7.5 % (0-4.4); Hematocrit 39.6 % (39.6-49.0); Lymphocytes % 18.1 % (15.3-44.8); MCH 28.6 pg (27.0-35.0); MPV 7.7 fL (7.6-11.3); Monocytes % 8.1 % (3.3-12.3)
[2018-02-28 16:37] LABS: Potassium 3.4 mEq/L (3.6-5.0)
[2018-02-28 16:43] LABS: Albumin 3.4 g/dL (3.2-5.5); Bilirubin Direct 0.2 mg/dL (0-0.2); Bilirubin Total 1.2 mg/dL (0.3-1.2); Protein, Total 7.1 g/dL (6.0-8.3)
[2018-02-28 17:13] LABS: Urine Blood NEGATIVE (NEG); Urine Glucose NEGATIVE (NEG); Urine Protein TRACE (NEG); Urine Specific Gravity 1.015 (1.005-1.030)
[2018-02-28 17:13] LABS: Urine Bacteria <20 /HPF (NONE SEEN); Urine RBC <5 /HPF (NONE SEEN)
[2018-02-28 17:15] LABS: Urine Culture Reflex Order NOT NEEDED
--- NOTE | 2018-02-28 18:06 | RAD REPORT ---
EXAM DESCRIPTION: CT - Abdomen Pelvis W Contrast - 02/28/2018 5:46 pm CLINICAL HISTORY: Abdominal pain COMPARISON: June 2017 TECHNIQUE: Biphasic, helical CT imaging of the abdomen and pelvis was performed following 100 ml non -ionic IV contrast. Oral contrast was given. All CT scans are performed using dose optimization technique as appropriate and may include automated exposure control or mA/KV adjustment according to patient size. FINDINGS: No consolidation, mass or pleural effusion. Interstitial thickening has developed in the s ubpleural region of each posterior gutter. This is new from prior imaging. No pericardial thickening or effusion. The liver, spleen, and pancreas show no suspicious findings. Cholecystectomy clips are present. No bi liary tree dilatation. Symmetric renal function is seen with no hydronephrosis or suspicious renal mass. Bilateral renal cys ts are present. Numerous metallic fragments or clips are present adjacent to the right kidney. No melanie lonephritis or acute renal parenchymal process. Bilateral cysts are present. Nonobstructing calculus seen in the lower pole left kidney. Bladder wall is slightly thickened but not fully distended. There is enlargement of the prostate gland similar to prior imaging. No gastric dilatation or gastric wall thickening. No dilated small bowel loops. Moderate stool volume throughout the colon. There is left-sided diverticulosis without diverticulitis. Colon mass is not s uspected. No free air, free fluid or inflammatory stranding. No mass or bulky lymphadenopathy. Small fat only right inguinal hernia No adrenal abnormality. No suspicious bony findings. IMPRESSION: No bowel obstruction, free air or surgically emergent finding. Diverticulosis left side colon without diverticulitis. An acute GI process is not seen. No acute finding seen. Prostate is enlarged an urinary bladder boswell are slightly thickened. This is a stable pattern from June 2017. Enhancement pattern of the liver and kidneys suggests diminished cardiac function.
--- NOTE | 2018-02-28 18:48 | ER ---
Nurse's Notes [facility] Name: Guero Ernst Age: 77 yrs Sex: Male : 1940 Arrival Date: 02/28/2018 Time: 15:04 Bed 13 Private MD: Fortunato Jiménez Diagnosis: Constipation;Lower abdominal pain, unspecified Presentation: 02/28 15:14 Presenting complaint: Patient states: RLQ abdominal pain for 2-3 months that increased aa5 in severity 1 week ago. Transition of care: patient was not received from another setting of care. Onset of symptoms was December 2017. Care prior to arrival: None. 15:14 Method Of Arrival: Wheelchair aa5 15:14 Acuity: ALLEN 3 aa5 17:13 Risk Assessment: Do you want to hurt yourself or someone else? Patient reports no jl7 desire to harm self or others. Initial Sepsis Screen: Does the patient meet any 2 criteria? No. Patient's initial sepsis screen is negative. Does the patient have a suspected source of infection? Yes: Bone or joint infection. Triage Assessment: 15:15 General: Appears in no apparent distress. comfortable, Behavior is calm, cooperative, aa5 appropriate for age. Pain: Complains of pain in right lower quadrant. Neuro: Level of Consciousness is awake, alert, obeys commands, Oriented to person, place, time, situation, Appropriate for age. Respiratory: Airway is patent Respiratory effort is even, unlabored, Respiratory pattern is regular, symmetrical. GI: Abdomen is flat, non-distended, Reports lower abdominal pain. Derm: Skin is intact, is healthy with good turgor, Skin is pink, warm \T\ dry. normal. Historical: - Allergies: 15:15 No Known Allergies; aa5 - Home Meds: 15:15 amiodarone 200 mg Oral tab 1 tab 2 times per day [Active]; atorvastatin 80 mg Oral tab aa5 1 tab once daily [Active]; carvedilol 25 mg Oral tab 1 tab 2 times per day [Active]; omeprazole 20 mg Oral cpDR 1 cap once daily [Active]; losartan 25 mg Oral tab 1 tab once daily [Active]; Xarelto 20 mg Oral tab 1 tab once daily [Active]; - PMHx: 15:15 Atrial Fib; Hyperlipidemia; Hypertension; aa5 - PSHx: 15:15 PVI; Cholecystectomy; shoulder; aa5 - Immunization history:: Adult Immunizations up to date. - Social history:: Smoking status: Patient/guardian denies using tobacco. - Ebola Screening: : No symptoms or risks identified at this time. Screenin:11 Abuse screen: Denies threats or abuse. Denies injuries from another. Nutritional jl7 screening: No deficits noted. Tuberculosis screening: No symptoms or risk factors identified. Fall Risk IV access (20 points). Total Morgan Fall Scale indicates No Risk (0-24 pts). Assessment: 15:30 General: Appears in no apparent distress. uncomfortable, Behavior is calm, cooperative, jl7 appropriate for age. Pain: Complains of pain in right lower quadrant Pain does not radiate. Pain currently is 9 out of 10 on a pain scale. Quality of pain is described as stabbing, Pain began a week ago Is continuous. Neuro: Level of Consciousness is awake, alert, obeys commands, Oriented to person, place, time, situation. Cardiovascular: Patient's skin is warm and dry. Respiratory: Airway is patent Respiratory effort is even, unlabored, Respiratory pattern is regular, symmetrical. GI: Bowel sounds present X 4 quads. Abd is soft X 4 quads Abdomen is tender to palpation in right lower quadrant. : No signs and/or symptoms were reported regarding the genitourinary system. EENT: No signs and/or symptoms were reported regarding the EENT system. Derm: Skin is pink, warm \T\ dry. 15:35 Reassessment: Pt finished drinking oral contrast CT notified. jl7 16:30 Reassessment: Patient and/or family updated on plan of care and expected duration. Pain jl7 level reassessed. Patient is alert, oriented x 3, equal unlabored respirations, skin warm/dry/pink. 17:15 Reassessment: Patient and/or family updated on plan of care and expected duration. Pain jl7 level reassessed. Patient is alert, oriented x 3, equal unlabored respirations, skin warm/dry/pink. Patient states feeling better. Patient states symptoms have improved. Vital Signs: 15:15 BP 128 / 85; Pulse 72; Resp 19; Temp 98.4; Pulse Ox 97% on R/A; Weight 99.79 kg; Height aa5 6 ft. 0 in. (182.88 cm); 17:11 BP 131 / 83; Pulse 64; Resp 16; Pulse Ox 96% ; jl7 18:11 BP 155 / 96; Pulse 74; Resp 16; Pulse Ox 96% ; jl7 19:30 BP 140 / 89; Pulse 65; Resp 16; Pulse Ox 97% ; jl7 15:15 Body Mass Index 29.84 (99.79 kg, 182.88 cm) aa5 ED Course: 15:04 Patient arrived in ED. sb2 15:05 Fortunato Jiménez MD is Private Physician. sb2 15:15 Triage completed. aa5 15:15 Arm band placed on left wrist. Patient placed in waiting room. aa5 15:28 Micheline Barragan, SAM is Primary Nurse. jl7 15:34 [facility] Diamond F[facility]-C [facility]. snw 15:34 Scott Meneses MD is Attending Physician. snw 15:43 Oral contrast reported to be complete. nj 16:30 Initial lab(s) drawn, by va, sent to lab. jl7 17:11 Patient has correct armband on for positive identification. Bed in low position. Call jl7 light in reach. Side rails up X 1. Pulse ox on. NIBP on. 17:[address] nj 17:45 CT completed. Patient tolerated procedure well. Patient moved back from CT. nj 17:46 CT Abd/Pelvis - W/Contrast In Process Unspecified. EDMS 18:45 Fortunato Jiménez MD is Referral Physician. snw 19:37 No provider procedures requiring assistance completed. Patient did not have IV access jl7 during this emergency room visit. Administered Medications: 16:10 Drug: fentaNYL (PF) 25 mcg Route: IVP; Site: PICC; jl7 17:15 Follow up: Response: No adverse reaction; Pain is decreased jl7 16:20 Drug: NS 0.9% 1000 ml Route: IV; Rate: 75 ml/hr; Site: PICC; jl7 19:36 Follow up: IV Status: IV converted to saline lock jl7 19:25 Drug: fentaNYL (PF) 50 mcg Route: IM; Site: left deltoid; jl7 19:37 Follow up: Response: Medication administered at discharge. jl7 19:30 Drug: Miralax 17 grams Route: PO; jl7 19:36 Follow up: Response: Medication administered at discharge. jl7 Outcome: 18:47 Discharge ordered by . w 19:37 Discharged to home via wheelchair, with family. jl7 19:37 Condition: stable 19:37 Discharge instructions given to patient, family, Instructed on discharge instructions, follow up and referral plans. medication usage, Demonstrated understanding of instructions, follow-up care, medications, Prescriptions given X 1. 19:39 Patient left the ED. jl7 Signatures: Dispatcher [employer] EDMS Salma Diamond, SENIOR ACCOUNT EXECUTIVE-C SENIOR ACCOUNT EXECUTIVE-Csnw Alison Gusman, RN RN aa5 Jose Apodaca Jahala RN RN jl7 Brittany Ramsey
--- NOTE | 2018-02-28 18:48 | EDPHYS ---
Physician Documentation [facility] Name: Guero Ernst Age: 77 yrs Sex: Male : 1940 Arrival Date: 02/28/2018 Time: 15:04 Bed 13 Private MD: Fortunato Jiménez ED Physician Scott Meneses HPI: 02/28 15:52 This 77 yrs old Male presents to ER via Wheelchair with complaints of Abd snw Pain > 50 y/o. 15:52 The patient presents with abdominal pain right lower quadrant. Onset: The snw symptoms/episode began/occurred gradually, 1.5 week(s) ago, and became worse 2 day(s) ago, and became persistent. The symptoms do not radiate. Associated signs and symptoms: Pertinent positives: nausea. The symptoms are described as stabbing, steady. Severity of pain: At its worst the pain was severe. The patient has not experienced similar symptoms in the past. currently being treated for knee infection per PICC with Unasyn. Historical: - Allergies: 15:15 No Known Allergies; aa5 - Home Meds: 15:15 amiodarone 200 mg Oral tab 1 tab 2 times per day [Active]; atorvastatin 80 mg Oral tab aa5 1 tab once daily [Active]; carvedilol 25 mg Oral tab 1 tab 2 times per day [Active]; omeprazole 20 mg Oral cpDR 1 cap once daily [Active]; losartan 25 mg Oral tab 1 tab once daily [Active]; Xarelto 20 mg Oral tab 1 tab once daily [Active]; - PMHx: 15:15 Atrial Fib; Hyperlipidemia; Hypertension; aa5 - PSHx: 15:15 PVI; Cholecystectomy; shoulder; aa5 - Immunization history:: Adult Immunizations up to date. - Social history:: Smoking status: Patient/guardian denies using tobacco. - Ebola Screening: : No symptoms or risks identified at this time. ROS: 15:49 Constitutional: Negative for fever, chills, and weight loss, Eyes: Negative for injury, snw pain, redness, and discharge, ENT: Negative for injury, pain, and discharge, Neck: Negative for injury, pain, and swelling, Cardiovascular: Negative for chest pain, palpitations, and edema, Respiratory: Negative for shortness of breath, cough, wheezing, and pleuritic chest pain, Back: Negative for injury and pain, : Negative for injury, bleeding, discharge, and swelling, MS/Extremity: Negative for injury and deformity, Skin: Negative for injury, rash, and discoloration, Neuro: Negative for headache, weakness, numbness, tingling, and seizure. 15:49 Abdomen/GI: Positive for abdominal pain, nausea. Exam: 15:47 Constitutional: This is a well developed, well nourished patient who is awake, alert, snw and in no acute distress. Head/Face: Normocephalic, atraumatic. Eyes: Pupils equal round and reactive to light, extra-ocular motions intact. Lids and lashes normal. Conjunctiva and sclera are non-icteric and not injected. Cornea within normal limits. Periorbital areas with no swelling, redness, or edema. ENT: Nares patent. No nasal discharge, no septal abnormalities noted. Tympanic membranes are normal and external auditory canals are clear. Oropharynx with no redness, swelling, or masses, exudates, or evidence of obstruction, uvula midline. Mucous membranes moist. Neck: Trachea midline, no thyromegaly or masses palpated, and no cervical lymphadenopathy. Supple, full range of motion without nuchal rigidity, or vertebral point tenderness. No Meningismus. Chest/axilla: Normal chest wall appearance and motion. Nontender with no deformity. No lesions are appreciated. Cardiovascular: Regular rate and rhythm with a normal S1 and S2. No gallops, murmurs, or rubs. Normal PMI, no JVD. No pulse deficits. Respiratory: Lungs have equal breath sounds bilaterally, clear to auscultation and percussion. No rales, rhonchi or wheezes noted. No increased work of breathing, no retractions or nasal flaring. Abdomen/GI: Soft with normal bowel sounds. No distension or tympany. Positive guarding, rebound to right lower quad. Back: No spinal tenderness. No costovertebral tenderness. Full range of motion. Skin: Warm, dry with normal turgor. Normal color with no rashes, no lesions, and no evidence of cellulitis. Neuro: Awake and alert, GCS 15, oriented to person, place, time, and situation. Cranial nerves II-XII grossly intact. Motor strength 5/5 in all extremities. Sensory grossly intact. Cerebellar exam normal. Normal gait. Psych: Awake, alert, with orientation to person, place and time. Behavior, mood, and affect are within normal limits. 15:47 Musculoskeletal/extremity: ROM: no acute changes, Circulation is intact in all extremities. Sensation intact. tx per PICC with Unasyn for infected joint at right knee x 16 days. Vital Signs: 15:15 BP 128 / 85; Pulse 72; Resp 19; Temp 98.4; Pulse Ox 97% on R/A; Weight 99.79 kg; Height aa5 6 ft. 0 in. (182.88 cm); 17:11 BP 131 / 83; Pulse 64; Resp 16; Pulse Ox 96% ; jl7 18:11 BP 155 / 96; Pulse 74; Resp 16; Pulse Ox 96% ; jl7 19:30 BP 140 / 89; Pulse 65; Resp 16; Pulse Ox 97% ; jl7 15:15 Body Mass Index 29.84 (99.79 kg, 182.88 cm) aa5 MDM: 15:37 Patient medically screened. snw 19:12 Data reviewed: vital signs, nurses notes. Data interpreted: Pulse oximetry: on room air snw is 96 %. Interpretation: acceptable. Counseling: I had a detailed discussion with the patient and/or guardian regarding: the historical points, exam findings, and any diagnostic results supporting the discharge/admit diagnosis, the presence of at least one elevated blood pressure reading (>120/80) during this emergency department visit, lab results, radiology results, the need for outpatient follow up, to return to the emergency department if symptoms worsen or persist or if there are any questions or concerns that arise at home. Special discussion: Based on the patient's Hx, exam, and Dx evaluation, there is no indication for emergent surgery or inpatient Tx. It is understood by the patient/guardian that if the Sx's persist or worsen they need to return immediately for re-evaluation. I have referred the patient to see his PCP for further evaluation of high blood pressure. Based on the history and exam findings, there is no indication for further emergent testing or inpatient evaluation. I discussed with the patient/guardian the need to see the orthopedic surgeon for further evaluation of the symptoms. I discussed with the patient/guardian the need to see the primary care provider for further evaluation of the symptoms. 02/28 15:26 Order name: Urine Culture snw 02/28 15:26 Order name: Urine Microscopic Only; Complete Time: 17:16 sn02/28 15:54 Order name: Basic Metabolic Panel; Complete Time: 16:50 snw 02/28 15:54 Order name: CBC with Diff; Complete Time: 16:39 02/28 15:54 Order name: Hepatic Function; Complete Time: 16:50 snw 02/28 15:54 Order name: Blood Culture Adult (2) 02/28 15:26 Order name: CT Abd/Pelvis - W/Contrast; Complete Time: 18:12 02/28 15:26 Order name: Urine Dipstick-Ancillary (obtain specimen); Complete Time: 16:34 snw 02/28 15:54 Order name: IV Saline Lock; Complete Time: 16:09 sn02/28 17:03 Order name: Urine Dipstick--Ancillary (enter results); Complete Time: 17:15 aa02/28 15:54 Order name: Labs collected and sent; Complete Time: 16:09 snw Administered Medications: 16:10 Drug: fentaNYL (PF) 25 mcg Route: IVP; Site: PICC; jl7 17:15 Follow up: Response: No adverse reaction; Pain is decreased jl7 16:20 Drug: NS 0.9% 1000 ml Route: IV; Rate: 75 ml/hr; Site: PICC; jl7 19:36 Follow up: IV Status: IV converted to saline lock jl7 19:25 Drug: fentaNYL (PF) 50 mcg Route: IM; Site: left deltoid; jl7 19:37 Follow up: Response: Medication administered at discharge. jl7 19:30 Drug: Miralax 17 grams Route: PO; jl7 19:36 Follow up: Response: Medication administered at discharge. jl7 Disposition: 02/28/18 18:47 Discharged to Home. Impression: Constipation, Lower abdominal pain, unspecified. - Condition is Stable. - Discharge Instructions: Abdominal Pain, Adult, Constipation, Adult, Clear Liquid Diet, High-Fiber Diet, Dietary Guidelines to Help Prevent Kidney Stones. - Prescriptions for Miralax 17 gram/dose Oral - take 1 packet by ORAL route once daily dilute powder in 8 ounces of water or juice; 1 box. - Medication Reconciliation Form, Thank You Letter, Antibiotic Education, Prescription Opioid Use form. - Follow up: Fortunato Jiménez MD; When: 2 - 3 days; Reason: Recheck today's complaints, Continuance of care, Re-evaluation by your physician. Follow up: Emergency Department; When: As needed; Reason: Worsening of condition. Addendum: 03/06/2018 19:22 Co-signature as Attending Physician, Scott Meneses MD. r n Signatures: Dispatcher [employer] EDMS Salma Diamond, CLINIC NURSE-C CLINIC NURSE-Csnw Scott Meneses MD MD rn Alison Gusman RN RN aa5 Micheline Barragan RN RN jl7 Corrections: (The following items were deleted from the chart) 02/28 19:39 18:47 02/28/2018 18:47 Discharged to Home. Impression: Constipation; Lower abdominal jl7 pain, unspecified. Condition is Stable. Forms are Medication Reconciliation Form, Thank You Letter, Antibiotic Education, Prescription Opioid Use. Follow up: Fortunato Jiménez; When: 2 - 3 days; Reason: Recheck today's complaints, Continuance of care, Re-evaluation by your physician. Follow up: Emergency Department; When: As needed; Reason: Worsening of condition. snw
[2018-02-28] MEDS ORDERED: POLYETHYL GLY 3350 17 GM/DOSE ONE (19:23)
[2018-02-28 21:18] VITALS: TEMP 98.4
[2018-02-28 21:22] VITALS: BP 140/89; O2SAT 97
== END 2018-02-28 19:39 | disposition home or self-care (01) ==
LOC: ER 15:02
DX: K59.00 Constipation, unspecified (principal); I10 Essential (primary) hypertension; E78.5 Hyperlipidemia, unspecified; I48.91 Unspecified atrial fibrillation; Z79.01 Long term (current) use of anticoagulants
CPT/HCPCS: 36415; 74177; 80048; 80076; 85025; 87040 ×2; 87086; 87088; J3010 ×2; J7030; Q9967; 81003; 81015; 96361; 96372; 96374; 99284

== ENCOUNTER 2018-05-27 05:13 | Emergency (ER) | payer OTHER ==
[2018-05-27] MEDS ORDERED: ONDANSETRON 4 MG/2 ML VIAL ONE (05:42)
[2018-05-27] MEDS ORDERED: MORPHINE 4 MG/ML SYR ONE (05:42)
[2018-05-27] MEDS ORDERED: NA CHLORIDE 0.9% 1,000 ML ONE ×2 (05:42→08:49)
[2018-05-27 05:55] LABS: Absolute Lymphocytes (CBC) 2.5 K/uL (0.7-4.9); Absolute Monocytes 0.7 K/uL (0.1-1.3); Absolute Neutrophil 4.7 K/uL (1.8-8.0); Basophils % 1.2 % (0-1.3); Hematocrit 41.1 % (39.6-49.0); Lymphocytes % 25.7 % (15.3-44.8); MCH 29.3 pg (27.0-35.0); MCV 87.3 fL (80-100); MPV 8.7 fL (7.6-11.3); RBC Red Blood Cell Count 4.71 M/uL (4.33-5.43)
[2018-05-27 05:59] LABS: Protime INR 1.54
[2018-05-27 06:14] LABS: Albumin 3.5 g/dL (3.4-5.0); Bilirubin Direct 0.1 mg/dL (0-0.2); Bilirubin Total 0.5 mg/dL (0.2-1.0); CKMB Creatine Kinase MB 1.9 ng/mL (0.3-3.6); Magnesium 2.4 mg/dL (1.8-2.4); Potassium 4.1 mmol/L (3.5-5.1); Protein, Total 6.9 g/dL (6.4-8.2)
[2018-05-27 06:35] LABS: Blood Morphology Comment NOT SEEN (NOT SEEN); Platelet Estimate ADEQ
--- NOTE | 2018-05-27 07:40 | RAD REPORT ---
EXAM DESCRIPTION: CT - Abdomen Pelvis W Contrast - 05/27/2018 7:12 am CLINICAL HISTORY: Abdominal pain, lower GI bleed COMPARISON: CT study February 28, 2018 TECHNIQUE: Biphasic, helical CT imaging of the abdomen and pelvis was performed following 100 ml non -ionic IV contrast. No oral contrast was given. Small quantity of contrast was administered prior to injector malfunction. Patient was reimaged on the other CT scanner using IV contrast. All CT scans are performed using dose optimization technique as appropriate and may include automated exposure control or mA/KV adjustment according to patient size. FINDINGS: No suspicious findings in the lung bases. Heart is borderline enlarged. No pericardial eff usion. The liver, spleen, and pancreas show no suspicious findings. Cholecystectomy clips are present. No bi liary tree dilatation. Symmetric renal function is seen with no hydronephrosis or suspicious renal mass. No pyelonephritis. Nonobstructing 5 mm calculi lower pole left kidney. A 15 millimeter cyst present upper pole left kidn ey. Lower pole right kidney contains a 3.5 centimeter cyst. There are numerous metallic densities sca ttered around the right kidney similar to comparison. Etiology is unknown. This is not of acute clini brandon significance. No gastric dilatation or gastric wall thickening. No acute small bowel finding. No appendicitis. Air, stool and fluid-filled colon is present. There is moderate severity sigmoid diverticulosis. No diver ticulitis. No gross evidence for mass or colon wall thickening. Surgical clips are seen along the mar gins of the colon near the splenic flexure. No free air, free fluid or inflammatory stranding. No hernia, mass or bulky lymphadenopathy. Urinary bladder boswell are prominent. Assessment is limited in the absence of full distention. Cystitis is do ubtful given the provided clinical history. Prostate gland is prominent. Superior lobulated margin pr ojects into the bladder base. No adrenal abnormality. No suspicious bony findings. Dense arterial tree calcifications are present. IMPRESSION: Prominent sigmoid diverticulosis without diverticulitis. No gross evidence for colon mas s or wall thickening. No specific finding seen as a source for the GI bleed. No obstruction, free ai r or surgically emergent finding. Mild prostatic hypertrophy with a lobulated superior contour projecting into the bladder base. CT findings are not clearly different from the May examination.
[2018-05-27] MEDS ORDERED: METRONIDAZOLE 500mg IVPB 500 MG/100 ML BAG IV ONE (07:47)
[2018-05-27] MEDS ORDERED: CIPROFLOXACIN 400mg IV 400 MG/200 ML BAG IV ONE (07:47)
--- NOTE | 2018-05-27 08:18 | RAD REPORT ---
EXAM DESCRIPTION: RAD - Chest Single View - 05/27/2018 6:15 am CLINICAL HISTORY: Abdominal pain COMPARISON: February 09 TECHNIQUE: AP portable chest image was obtained 0606 hours . FINDINGS: Lung markings are prominent but not clearly different. Early interstitial edema or infiltr ate could be masked in this setting. No focal mass, consolidation or significant failure/ volume over load. Heart size is upper normal, stable, with no vascular engorgement. No measurable pleural effusio n and no pneumothorax. No gross bony abnormality seen. No acute aortic findings suspected. IMPRESSION: No mass, consolidation or significant failure finding. Prominent interstitial lung markings similar to comparison. Early interstitial edema or infiltrate co uld be potentially masked.
--- NOTE | 2018-05-27 08:41 | EDPHYS ---
Physician Documentation [facility] Name: Guero Ernst Age: 77 yrs Sex: Male : 1940 Arrival Date: 05/27/2018 Time: 05:15 Bed 14 Private MD: ED Physician Heber Alanis HPI: 05/27 06:28 This 77 yrs old Male presents to ER via Wheelchair with complaints of Rectal kb Bleeding. 06:28 The patient presents to the emergency department with bleeding from the rectum/anus, kb that is moderate. Onset: The symptoms/episode began/occurred this morning, at 03:30. Context: the patient has no known special context relating to the rectal area complaint(s). Modifying factors: The symptoms are alleviated by nothing, The symptoms are aggravated by bowel movement. Associate signs and symptoms: Pertinent positives: lower GI bleeding, bright red, Pertinent negatives: abdominal pain, constipation, diarrhea, dysuria, fever, vomiting. The patient has experienced a previous episode. The patient has not recently seen a physician. Pt states he woke up with abdominal pain at 0330 and has had 3 bowel movements since then with bright red blood. Sees Dr Feliciano for GI. PCP is Jessy. Historical: - Allergies: 05:32 No Known Allergies; tl1 - Home Meds: 05:32 atorvastatin 80 mg Oral tab 1 tab once daily [Active]; Xarelto 20 mg Oral tab 1 tab tl1 once daily [Active]; omeprazole 20 mg Oral cpDR 1 cap once daily [Active]; carvedilol 25 mg Oral tab 1 tab 2 times per day [Active]; losartan 25 mg Oral tab 1 tab once daily [Active]; Ferralet 90 Dual-Iron Delivery 90-1-12-50 je-sm-[id number]-mg oral tab [Active]; - PMHx: 05:32 Atrial Fib; Hyperlipidemia; Hypertension; tl1 - PSHx: 05:32 Bowel resection; Knee surgery; shoulder surgery; tl1 - Immunization history:: Adult Immunizations up to date. - Social history:: Smoking status: Patient/guardian denies using tobacco. - Ebola Screening: : Patient negative for fever greater than or equal to 101.5 degrees Fahrenheit, and additional compatible Ebola Virus Disease symptoms Patient denies exposure to infectious person Patient denies travel to an Ebola-affected area in the 21 days before illness onset. ROS: 06:28 Constitutional: Negative for fever, chills, and weight loss, Cardiovascular: Negative kb for chest pain, palpitations, and edema, Respiratory: Negative for shortness of breath, cough, wheezing, and pleuritic chest pain, Back: Negative for injury and pain, : Negative for injury, bleeding, discharge, and swelling, MS/Extremity: Negative for injury and deformity, Skin: Negative for injury, rash, and discoloration, Neuro: Negative for headache, weakness, numbness, tingling, and seizure. 06:28 Abdomen/GI: Positive for abdominal pain, rectal bleeding. Exam: 06:28 Constitutional: This is a well developed, well nourished patient who is awake, alert, kb and in no acute distress. Head/Face: Normocephalic, atraumatic. Chest/axilla: Normal chest wall appearance and motion. Nontender with no deformity. No lesions are appreciated. Cardiovascular: Regular rate and rhythm with a normal S1 and S2. No gallops, murmurs, or rubs. Normal PMI, no JVD. No pulse deficits. Respiratory: Lungs have equal breath sounds bilaterally, clear to auscultation and percussion. No rales, rhonchi or wheezes noted. No increased work of breathing, no retractions or nasal flaring. Back: No spinal tenderness. No costovertebral tenderness. Full range of motion. Skin: Warm, dry with normal turgor. Normal color with no rashes, no lesions, and no evidence of cellulitis. MS/ Extremity: Pulses equal, no cyanosis. Neurovascular intact. Full, normal range of motion. Neuro: Awake and alert, GCS 15, oriented to person, place, time, and situation. Cranial nerves II-XII grossly intact. Motor strength 5/5 in all extremities. Sensory grossly intact. Cerebellar exam normal. Normal gait. 06:28 Abdomen/GI: Inspection: abdomen appears normal, Bowel sounds: normal, in all quadrants, Palpation: soft, in the left upper quadrant, right lower quadrant and left lower quadrant, moderate abdominal tenderness, in the right upper quadrant, Rectal exam: rectal tone normal, Stool: grossly bloody. Vital Signs: 05:32 BP 158 / 86; Pulse 70; Resp 19; Temp 98.4; Pulse Ox 97% on R/A; Weight 95.25 kg; Height tl1 6 ft. 0 in. (182.88 cm); Pain 7/10; 07:27 BP 153 / 83; Pulse 71; Resp 16; Pulse Ox 100% on R/A; la1 07:38 BP 119 / 87; Pulse 75; Resp 16; Pulse Ox 95% on R/A; la1 07:53 BP 122 / 84; Pulse 61; Resp 16; Pulse Ox 96% on R/A; la1 08:11 BP 114 / 70; Pulse 63; Resp 16; Pulse Ox 97% on R/A; la1 08:55 BP 126 / 88; Pulse 61; Resp 16; Pulse Ox 97% on R/A; la1 10:16 BP 132 / 85; Pulse 61; Resp 16; Pulse Ox 100% on R/A; la1 05:32 Body Mass Index 28.48 (95.25 kg, 182.88 cm) tl1 MDM: 05:59 Patient medically screened. kb 06:28 Data reviewed: vital signs, nurses notes. Data interpreted: Pulse oximetry: on room air kb is 97 %. Interpretation: normal. 08:04 Physician consultation: Thanh Feliciano MD was called at 07:50, message left. kb 08:21 Physician consultation: Thanh Feliciano MD called at [phone] and [phone] with no answer. Will kb initiate transfer. 08:40 Counseling: I had a detailed discussion with the patient and/or guardian regarding: the kb historical points, exam findings, and any diagnostic results supporting the discharge/admit diagnosis, lab results, radiology results, the need to transfer to another facility, [facility] does not immediately have the required specialist. 05/27 05:39 Order name: Basic Metabolic Panel; Complete Time: 06:15 tl1 05/27 05:39 Order name: CBC with Diff; Complete Time: 06:41 tl1 05/27 05:39 Order name: Ckmb; Complete Time: 06:15 tl1 05/27 05:39 Order name: CPK; Complete Time: 06:15 tl1 05/27 05:39 Order name: LFT's; Complete Time: 06:15 tl1 05/27 05:39 Order name: Magnesium; Complete Time: 06:15 tl1 05/27 05:39 Order name: NT PRO-BNP; Complete Time: 06:15 tl1 05/27 05:39 Order name: PT-INR; Complete Time: 06:14 tl1 05/27 05:39 Order name: Ptt, Activated; Complete Time: 06:14 tl1 05/27 05:39 Order name: Troponin (emerg Dept Use Only); Complete Time: 06:15 tl1 05/27 05:39 Order name: Type And Screen tl1 05/27 05:51 Order name: Lipase; Complete Time: 06:15 EDMS 05/27 05:39 Order name: XRAY Chest (1 view); Complete Time: 08:20 tl1 05/27 05:39 Order name: EKG; Complete Time: 05:39 tl1 05/27 05:39 Order name: Cardiac monitoring; Complete Time: 05:53 tl1 05/27 05:39 Order name: EKG - Nurse/Tech; Complete Time: 05:53 tl1 05/27 06:26 Order name: CT Abd/Pelvis - W/Contrast; Complete Time: 07:42 kb 05/27 06:33 Order name: Manual Differential; Complete Time: 06:41 EDMS 05/27 07:45 Order name: Bb Add On bd 05/27 08:00 Order name: ABO rpt EDMS 05/27 05:39 Order name: IV Saline Lock; Complete Time: 05:41 tl1 05/27 05:39 Order name: Labs collected and sent; Complete Time: 05:41 tl1 05/27 05:39 Order name: O2 Per Protocol; Complete Time: 05:41 tl1 05/27 05:39 Order name: O2 Sat Monitoring; Complete Time: 05:41 tl1 Administered Medications: 05:41 Drug: Zofran 4 mg Route: IVP; Site: right forearm; tl1 06:52 Follow up: Response: No adverse reaction; Marked relief of symptoms tl1 05:42 Drug: morphine 4 mg Route: IVP; Site: right forearm; tl1 06:53 Follow up: Response: No adverse reaction; Marked relief of symptoms; Pain is decreased tl1 05:42 CANCELLED (Other Intervention Used): NS 0.9% 1000 ml IV at 1000 ml once tl1 05:43 Drug: NS 0.9% 500 ml Route: IV; Rate: bolus; Site: right forearm; tl1 06:53 Follow up: IV Status: Completed infusion tl1 08:56 Follow up: IV Status: Completed infusion la1 05:43 Drug: NS 0.9% 1000 ml Route: IV; Rate: 125 ml/hr; Site: right forearm; tl1 08:56 Follow up: IV Status: Infusion continued upon transfer la1 07:49 Drug: Cipro 400 mg Volume: 200 ml; Route: IVPB; Infused Over: 60 mins; Site: right la1 forearm; 08:55 Follow up: IV Status: Completed infusion la1 07:58 Drug: Flagyl 500 mg Volume: 100 ml; Route: IVPB; Rate: 200 ml/hr; Infused Over: 30 la1 mins; Site: right forearm; 08:56 Follow up: IV Status: Completed infusion la1 Disposition: 05/27/18 08:40 Transfer ordered to [facility]. Diagnosis is Gastrointestinal hemorrhage, unspecified. - Reason for transfer: Higher level of care. - Accepting physician is Katya. - Condition is Stable. - Problem is new. - Symptoms are unchanged. Addendum: 05/31/2018 10:02 Co-signature as Attending Physician, Franklin Hines MD I agree with the assessment and c gottlieb plan of care. Signatures: Dispatcher [employer] [facility] Allyn Triplett, CARDIOLOGY PHYSICIAN ASSISTANT-C CARDIOLOGY PHYSICIAN ASSISTANT-Ckb Franklin Hines MD MD cha Attema, Lee, RN RN la1 Vivienne Thompson, RN RN tl1 Corrections: (The following items were deleted from the chart) 05/27 05:42 05:41 NS 0.9% 1000 ml IV at 1000 ml once ordered. tl1 tl1 05:42 05:41 NS 0.9% 1000 ml IV at 1000 ml once given. tl1 tl1 05:42 05:42 NS 0.9% 1000 ml IV at 1000 ml once ordered. 1 tl1 05:50 05:45 LIPASE+C.LAB.BRZ ordered. EDSC EDMS 06:33 06:00 CBC Smear Scan ordered. EDSC EDMS 06:41 06:28 Pt states he woke up with abdominal pain at 0330 and has had 3 bowel movements kb since then with bright red blood. Sees Dr Feliciano for GI. kb 07:29 06:28 Abdomen/GI: Inspection: abdomen appears normal, Bowel sounds: normal, in all kb quadrants, Palpation: soft, in the left upper quadrant, right lower quadrant and left lower quadrant, moderate abdominal tenderness, in the right upper quadrant, kb 10:17 08:40 05/27/2018 08:40 Transfer ordered to [facility]. Diagnosis is la1 Gastrointestinal hemorrhage, unspecified. Reason for transfer: Higher level of care. Accepting physician is Katya. Condition is Stable. Problem is new. Symptoms are unchanged. kb
--- NOTE | 2018-05-27 08:41 | ER ---
Nurse's Notes [facility] Name: Guero Ernst Age: 77 yrs Sex: Male : 1940 Arrival Date: 05/27/2018 Time: 05:15 Bed 14 Private MD: Diagnosis: Gastrointestinal hemorrhage, unspecified Presentation: 05/27 05:27 Presenting complaint: Patient states: I woke up at 0400 with abdominal pain and tl1 cramping and I had an explosive bowel movement that was all blood. Transition of care: patient was not received from another setting of care. Onset of symptoms was May 27, 2018. Risk Assessment: Do you want to hurt yourself or someone else? Patient reports no desire to harm self or others. Initial Sepsis Screen: Does the patient meet any 2 criteria? No. Patient's initial sepsis screen is negative. Does the patient have a suspected source of infection? No. Patient's initial sepsis screen is negative. Care prior to arrival: None. 05:27 Method Of Arrival: Wheelchair tl1 05:27 Acuity: ALLEN 2 tl1 Historical: - Allergies: 05:32 No Known Allergies; tl1 - Home Meds: 05:32 atorvastatin 80 mg Oral tab 1 tab once daily [Active]; Xarelto 20 mg Oral tab 1 tab tl1 once daily [Active]; omeprazole 20 mg Oral cpDR 1 cap once daily [Active]; carvedilol 25 mg Oral tab 1 tab 2 times per day [Active]; losartan 25 mg Oral tab 1 tab once daily [Active]; Ferralet 90 Dual-Iron Delivery 90-1-12-50 cf-ha-ywt-mg oral tab [Active]; - PMHx: 05:32 Atrial Fib; Hyperlipidemia; Hypertension; tl1 - PSHx: 05:32 Bowel resection; Knee surgery; shoulder surgery; tl1 - Immunization history:: Adult Immunizations up to date. - Social history:: Smoking status: Patient/guardian denies using tobacco. - Ebola Screening: : Patient negative for fever greater than or equal to 101.5 degrees Fahrenheit, and additional compatible Ebola Virus Disease symptoms Patient denies exposure to infectious person Patient denies travel to an Ebola-affected area in the 21 days before illness onset. Screenin:51 Abuse screen: Denies threats or abuse. Denies injuries from another. Nutritional tl1 screening: No deficits noted. Tuberculosis screening: No symptoms or risk factors identified. Fall Risk IV access (20 points). Assessment: 06:06 General: Appears uncomfortable, Behavior is calm, cooperative, appropriate for age. tl1 Pain: Complains of pain in abdomen Pain currently is 8 out of 10 on a pain scale. Quality of pain is described as aching, crampy, Pain began 2 hours ago. Neuro: Level of Consciousness is awake, alert, obeys commands, Oriented to person, place, time, situation. Cardiovascular: Denies chest pain. Respiratory: Airway is patent Trachea midline Respiratory effort is even, unlabored, Breath sounds are clear bilaterally. GI: Abdomen is non-distended, Bowel sounds present X 4 quads. Reports lower abdominal pain, cramping, bloody stool. : No signs and/or symptoms were reported regarding the genitourinary system. EENT: No signs and/or symptoms were reported regarding the EENT system. Derm: No signs and/or symptoms reported regarding the dermatologic system. 07:07 Reassessment: Pt in CT at this time. la1 07:21 Reassessment: PT now back from CT has reportedly had 4-5 bloody BM since 0400 this la1 morning. 08:11 Reassessment: Patient appears in no apparent distress at this time. No changes from la1 previously documented assessment. Patient and/or family updated on plan of care and expected duration. Pain level reassessed. Patient is alert, oriented x 3, equal unlabored respirations, skin warm/dry/pink. 09:21 Reassessment: Patient appears in no apparent distress at this time. No changes from la1 previously documented assessment. Patient and/or family updated on plan of care and expected duration. Pain level reassessed. Patient is alert, oriented x 3, equal unlabored respirations, skin warm/dry/pink. 09:21 Reassessment: report given to Aide [facility]. Pt to go to room 1009. la1 Vital Signs: 05:32 BP 158 / 86; Pulse 70; Resp 19; Temp 98.4; Pulse Ox 97% on R/A; Weight 95.25 kg; Height tl1 6 ft. 0 in. (182.88 cm); Pain 7/10; 07:27 BP 153 / 83; Pulse 71; Resp 16; Pulse Ox 100% on R/A; la1 07:38 BP 119 / 87; Pulse 75; Resp 16; Pulse Ox 95% on R/A; la1 07:53 BP 122 / 84; Pulse 61; Resp 16; Pulse Ox 96% on R/A; la1 08:11 BP 114 / 70; Pulse 63; Resp 16; Pulse Ox 97% on R/A; la1 08:55 BP 126 / 88; Pulse 61; Resp 16; Pulse Ox 97% on R/A; la1 10:16 BP 132 / 85; Pulse 61; Resp 16; Pulse Ox 100% on R/A; la1 05:32 Body Mass Index 28.48 (95.25 kg, 182.88 cm) tl1 ED Course: 05:15 Patient arrived in ED. ds1 05:27 Vivienne Thompson, RN is Primary Nurse. tl1 05:29 Triage completed. tl1 05:33 Arm band placed on right wrist. tl1 05:34 No provider procedures requiring assistance completed. Inserted saline lock: 20 gauge tl1 in right forearm, using aseptic technique. Blood collected. 05:41 Initial lab(s) drawn, by me, sent to lab. cc 05:58 Allyn Triplett FNP-C is PHCP. kb 05:58 Heber Alanis MD is Attending Physician. kb 06:13 X-ray completed. Portable x-ray completed in exam room. Patient tolerated procedure kp1 well. 06:16 XRAY Chest (1 view) In Process Unspecified. EDMS 06:[address] via stretcher. kw1 07:12 CT Abd/Pelvis - W/Contrast In Process Unspecified. EDMS 07:21 Placed in gown. Bed in low position. Call light in reach. Side rails up X 1. Cardiac la1 monitor on. Pulse ox on. NIBP on. 07:51 Inserted saline lock: 20 gauge in left antecubital area, using aseptic technique. la1 10:16 Patient transferred, IV remains in place. la1 Administered Medications: 05:41 Drug: Zofran 4 mg Route: IVP; Site: right forearm; tl1 06:52 Follow up: Response: No adverse reaction; Marked relief of symptoms tl1 05:42 Drug: morphine 4 mg Route: IVP; Site: right forearm; tl1 06:53 Follow up: Response: No adverse reaction; Marked relief of symptoms; Pain is decreased tl1 05:42 CANCELLED (Other Intervention Used): NS 0.9% 1000 ml IV at 1000 ml once tl1 05:43 Drug: NS 0.9% 500 ml Route: IV; Rate: bolus; Site: right forearm; tl1 06:53 Follow up: IV Status: Completed infusion tl1 08:56 Follow up: IV Status: Completed infusion la1 05:43 Drug: NS 0.9% 1000 ml Route: IV; Rate: 125 ml/hr; Site: right forearm; tl1 08:56 Follow up: IV Status: Infusion continued upon transfer la1 07:49 Drug: Cipro 400 mg Volume: 200 ml; Route: IVPB; Infused Over: 60 mins; Site: right la1 forearm; 08:55 Follow up: IV Status: Completed infusion la1 07:58 Drug: Flagyl 500 mg Volume: 100 ml; Route: IVPB; Rate: 200 ml/hr; Infused Over: 30 la1 mins; Site: right forearm; 08:56 Follow up: IV Status: Completed infusion la1 Outcome: 08:40 ER care complete, transfer ordered by MD. hebert 10:16 Transferred by ground EMS to [facility] [place], X-rays sent w/ patient. la1 10:16 Condition: stable 10:16 Instructed on the need for transfer. 10:17 Patient left the ED. la1 Signatures: Dispatcher [employer] EDMS Allyn Triplett, EXPORT DOCUMENTS CLERK-C EXPORT DOCUMENTS CLERK-Paola Cruz ds1 Ivory Weinberg Lee RN RN la1 Vivienne Thompson RN RN tl1 Mira Kelley 1 Kristin Watson kw1 Corrections: (The following items were deleted from the chart) 05:42 05:41 NS 0.9% 1000 ml IV at 1000 ml in right forearm tl1 tl1
[2018-05-27 10:36] VITALS: TEMP 98.4
[2018-05-27 10:41] VITALS: BP 132/85; O2SAT 100
--- NOTE | 2018-05-28 07:53 | EKG ---
Test Date: 2018-05-27 Test Time: 05:46:36 E Learning Developer: MEASUREMENT RESULTS: Intervals: Rate: 74 MS: QRSD: 90 QT: 412 QTc: 457 [place]: P: MS: QRS: -32 T: 18 INTERPRETIVE STATEMENTS: Atrial fibrillation Left axis deviation Anterior infarct, age undetermined Abnormal ECG Compared to ECG 02/07/2018 16:37:24 Atrial flutter no longer present Myocardial infarct finding still present Electronically Signed On 05-28-18 07:51:11 CDT by Bhavin Flynn
== END 2018-05-27 10:17 | disposition short-term general hospital (02) ==
LOC: ER 05:13
DX: K92.2 Gastrointestinal hemorrhage, unspecified (principal); I48.91 Unspecified atrial fibrillation; Z79.01 Long term (current) use of anticoagulants; E78.5 Hyperlipidemia, unspecified; I10 Essential (primary) hypertension
CPT/HCPCS: 36415; 71045; 74177; 80048; 80076; 82550; 82553; 83690; 83735; 83880; 84484; 85025; 85610; 85730; 86850; 86900; 86901; 93005; J0744; J2405; J7030 ×2; Q9967; 96361; 96365; 96368; 96375; 99285

== ENCOUNTER 2018-12-11 13:16 | Observation (INO) | payer OTHER ==
--- OUTSIDE RECORDS SUMMARY | 2018-12-11 13:22 | XMS REPORT | Clinical Summary ---
:1940 Author Organization [facility] Address [address] [place] [address] Care Team Providers Name Role Phone Fortunato Jiménez Primary Care Provider Allergies No Known Allergies Medications Medication Sig Dispensed Refills Start Date End Date Status atorvastatin (LIPITOR) Take 80 mg by 0 Active 80 MG tablet mouth daily. rivaroxaban (XARELTO) Take by mouth 0 Active 20 mg Tab tablet daily with dinner. omeprazole (PRILOSEC) Take 20 mg by 0 Active 20 MG capsule mouth daily. carvedilol (COREG) 25 Take 25 mg by 0 Active MG tablet mouth 2 (two) times daily with breakfast and dinner. losartan (COZAAR) 25 Take 25 mg by 0 Active MG tablet mouth daily. Active Problems Problem Noted Date BRBPR (bright red blood per rectum) 05/27/2018 Chronic atrial fibrillation 05/27/2018 Hypertension Encounters Date Type Specialty Care Team Description 05/28/2018 Anesthesia Event Gastroenterology Bogdan Brooks MD 05/28/2018 Surgery Gastroenterology Shubham Hickman, COLONOSCOPY,POLYPECT MD PIERSON 05/27/2018 - Hospital Encounter Cardiology Genet Patel BRBPR (bright red blood per rectum); 05/28/2018 MD Devorah Chronic atrial fibrillation (HCC); Azra Benitez Essential hypertension MD Gunnar Joseph Kinjal M., MD after 12/10/2017 Social History Tobacco Use Types Packs/Day Years Used Date Former Smoker Smokeless Tobacco: Former User Sex Assigned at Date Recorded Not on file Job Start Date Occupation Industry Not on file Not on file Not on file Travel History Travel Start Travel End No recent travel history available. Last Filed Vital Signs Vital Sign Reading Time Taken Blood Pressure 91/56 05/28/2018 2:59 PM CDT Pulse 61 05/28/2018 2:59 PM CDT Temperature 36.5 C (97.7 F) 05/28/2018 2:59 PM CDT Respiratory Rate 18 05/28/2018 2:59 PM CDT Oxygen Saturation 96% 05/28/2018 2:59 PM CDT Inhaled Oxygen Concentration - - Weight 96.3 kg (212 lb 3.2 oz) 05/27/2018 11:59 AM CDT Height 182.9 cm (6') 05/27/2018 11:59 AM CDT Body Mass Index 28.78 05/27/2018 11:59 AM CDT Plan of Treatment Not on file Procedures Procedure Name Priority Date/Time Associated Diagnosis Comments REPORT OF PROCEDURE 05/29/2018 2:11 - ENDOSCOPY SCAN PM CDT RHYTHM STRIP - SCAN 05/29/2018 2:11 PM CDT TRANSFUSION SERVICE 05/28/2018 6:00 REPORT - SCAN PM CDT HEMOGLOBIN AND Routine 05/28/2018 12:07 Results for this HEMATOCRIT PM CDT procedure are in the results section. REPORT OF PROCEDURE 05/28/2018 9:44 - ENDOSCOPY URL AM CDT TISSUE EXAM AP Routine 05/28/2018 9:06 Results for this AM CDT procedure are in the results section. COLONOSCOPY,POLYPEC 05/28/2018 8:00 Gastrointestinal MISHA AM CDT hemorrhage, unspecified gastrointestinal hemorrhage type PT/APTT Routine 05/28/2018 4:59 Results for this AM CDT procedure are in the results section. MAGNESIUM Routine 05/28/2018 4:59 Results for this AM CDT procedure are in the results section. BASIC METABOLIC Routine 05/28/2018 4:59 Results for this PANEL (7) AM CDT procedure are in the results section. HEMOGLOBIN AND Routine 05/28/2018 4:59 Results for this HEMATOCRIT AM CDT procedure are in the results section. HEMOGLOBIN AND Routine 05/27/2018 10:02 Results for this HEMATOCRIT PM CDT procedure are in the results section. CBC W/PLT COUNT & Routine 05/27/2018 1:44 Results for this AUTO DIFFERENTIAL PM CDT procedure are in the results section. TYPE AND SCREEN, Routine 05/27/2018 1:44 Results for this AUTOMATED PM CDT procedure are in the results section. CBC W/PLT COUNT & Routine 05/27/2018 1:44 Results for this AUTO DIFFERENTIAL PM CDT procedure are in the results section. PT/APTT Routine 05/27/2018 1:44 Results for this PM CDT procedure are in the results section. MAGNESIUM Routine 05/27/2018 1:44 Results for this PM CDT procedure are in the results section. BASIC METABOLIC Routine 05/27/2018 1:44 Results for this PANEL (7) PM CDT procedure are in the results section. after 12/10/2017 Results EKG-SCANNED (05/29/2018 2:11 PM CDT) Narrative Performed At RHYTHM STRIP - SCAN (05/29/2018 2:11 PM CDT) Narrative Performed At TRANSFUSION SERVICE REPORT - SCAN (05/28/2018 6:00 PM CDT) Narrative Performed At Hemoglobin and hematocrit (05/28/2018 12:07 PM CDT)Only the most recent of3 resultswithin the time period is included. Hemoglobin 9.6 (L) 13.7 - 17.5 GM/DL [facility] Hematocrit 30.2 (L) 40.1 - 51.0 % [facility] Specimen Blood Performing Organization Address City/State/Zipcode Phone Number [facility] [address] [place] [phone] CENTER REPORT OF PROCEDURE - ENDOSCOPY URL (05/28/2018 9:44 AM CDT) Narrative Performed At Tissue Exam (05/28/2018 9:06 AM CDT) Case Report Surgical Pathology Report Case: [id number] [facility] Authorizing Provider:Shubham Hickman MDCollected: 05/28/2018 0906 MEDICAL CENTER Ordering Location: [address] Received: 05/28/2018 4407 Service Pathologist: Luis Alberto Malave MD Specimen:Polyp, Colon - Transverse DIAGNOSIS PART A TRANSVERSE COLON POLYP, BIOPSY: [facility] COLONIC MUCOSA WITH HYPERPLASTIC FEATURES. [facility] Signing Pathologist Direct Phone Line: [phone] CPT Code(s) 75497 [facility] CLINICAL HISTORY hematochezia [facility] SPECIMEN SOURCE Colon transverse [facility] GROSS DESCRIPTION A. Received in formalin [facility] labeled "polyp, colon MEDICAL CENTER transverse" are two irregular pieces of velasco-pink tissue measuring 0.2 x 0.1 x 0.1 and 0.3 x 0.2 x 0.1 cm. The specimen is submitted in toto in a single cassette. DH/pl MICROSCOPIC DESCRIPTION PERFORMED. [facility] Specimen Tissue - Polyp, Colon - Transverse Performing Organization Address [facility]/[employer] Phone Number [address] [address] CENTER PT/aPTT (05/28/2018 4:59 AM CDT)Only the most recent of2 resultswithin the time period is included. Protime 16.0 (H) 11.7 - 14.7 seconds [facility] INR 1.3 <=5.9 [facility] PTT 28.2 22.5 - 36.0 seconds [facility] Specimen Blood Narrative Performed At [facility] RECOMMENDED COUMADIN/WARFARIN INR THERAPY RANGES STANDARD DOSE: 2.0 - 3.0 Includes: PROPHYLAXIS for venous thrombosis, systemic embolization; TREATMENT for venous thrombosis and/or pulmonary embolus. HIGH RISK: Target INR is 2.5-3.5 for patients with mechanical heart valves. Performing Organization Address City/[facility]/[employer] Phone Number [address] [address] CENTER Magnesium (05/28/2018 4:59 AM CDT)Only the most recent of2 resultswithin the time period is included. Magnesium 1.9 1.6 - 2.6 mg/dL [facility] Specimen Blood Performing Organization Address City/[facility]/[employer] Phone Number [address] [address] CENTER Basic metabolic panel (05/28/2018 4:59 AM CDT)Only the most recent of2 resultswithin the time period is included. Sodium 144 136 - 145 meq/L [facility] Potassium 3.7 3.5 - 5.1 meq/L [facility] Chloride 112 (H) 98 - 107 meq/L [facility] CO2 24 22 - 29 meq/L [facility] BUN 10 7 - 21 mg/dL [facility] Creatinine 0.72 0.57 - 1.25 mg/dL [facility] Glucose 98 70 - 105 mg/dL [facility] Calcium 8.5 8.4 - 10.2 mg/dL [facility] EGFR 106Comment: ESTIMATED GFR IS mL/min/1.73 sq m [facility] NOT ACCURATE CREATININE [facility] CLEARANCE IN PREDICTING GLOMERULAR FILTRATION RATE. ESTIMATED GFR IS NOT APPLICABLE FOR DIALYSIS PATIENTS. Specimen Blood Performing Organization Address City/[facility]/Zipcode Phone Number [address] [address] CENTER Type and screen, automated (05/27/2018 1:44 PM CDT) ABO/RH AUTOMATED (BEAKER) A NEGATIVE [facility] Ab Scrn NEGATIVE [facility] Specimen Blood Performing Organization Address City/[facility]/Zipcode Phone Number [place] [phone] [place] [address] CBC with platelet count + automated diff (05/27/2018 1:44 PM CDT) WBC 9.6 3.5 - 10.5 K/L [facility] RBC 3.84 (L) 4.63 - 6.08 M/L [facility] Hemoglobin 11.2 (L) 13.7 - 17.5 GM/DL [facility] Hematocrit 34.9 (L) 40.1 - 51.0 % [facility] MCV 90.9 79.0 - 92.2 fL [facility] MCH 29.2 25.7 - 32.2 pg [facility] MCHC 32.1 (L) 32.3 - 36.5 GM/DL [facility] RDW 16.0 (H) 11.6 - 14.4 % [facility] Platelets 241 150 - 450 K/CU MM [facility] MPV 11.0 9.4 - 12.4 fL [facility] nRBC 0 0 - 0 /100 WBC [facility] % Neutros 60 % [facility] % Lymphs 19 % [facility] % Monos 7 % [facility] % Eos 14 % [facility] % Baso 1 % [facility] # Neutros 5.74 (H) 1.78 - 5.38 K/L [facility] # Lymphs 1.80 1.32 - 3.57 K/L [facility] # Monos 0.62 0.30 - 0.82 K/L [facility] # Eos 1.29 (H) 0.04 - 0.54 K/L [facility] # Baso 0.08 0.01 - 0.08 K/L [facility] Immature Granulocytes-Relative 1 0 - 1 % [facility] Specimen Blood Performing Organization Address City/State/Zipcode Phone Number [facility] [address] [place] [address] CENTER after 12/10/2017 Insurance Payer Benefit Plan / Group Subscriber ID Type Phone Address MEDICARE MEDICARE A B xxxxxxxxxx Medicare MCR GENERIC MEDICARE xxxxxxxxx Medigap SUPPLEMENT/INDIVIDUAL SUPPLEMENT Advance Directives For more information, please contact:[address] [phone] Code Status Date Activated Date Inactivated Comments Full Code 05/27/2018 1:19 PM 05/28/2018 8:01 PM This code status was determined by: Patient
--- OUTSIDE RECORDS SUMMARY | 2018-12-11 13:22 | XMS REPORT ---
:1940 Author Organization [facility] Address [address] [place] [address] [address]. [address] [place] [address] Care Team Providers Name Role Phone MIGUEL MATTHEWS Unavailable Unavailable Problems This patient has no known problems. Allergies, Adverse Reactions, Alerts This patient has no known allergies or adverse reactions. Medications This patient has no known medications. Results Test Description Test Time Test Comments Text Results Atomic Results Result Comments TISSUE EXAM 2018-05-30 12:56:00 Surgical Pathology Report Case: [id number] Authorizing Provider: Shubham Hickman MD Collected: 05/28/2018 0906 Ordering Location: [address] Received: 05/28/2018 1537 Service Pathologist: Luis Alberto Malave MD Specimen: Polyp, Colon - Transverse PART A TRANSVERSE COLON POLYP, BIOPSY:COLONIC MUCOSA WITH HYPERPLASTIC FEATURES. Signing Pathologist Direct Phone Line: [phone] signed by Luis Alberto Malave MD on 05/30/2018 at 12:56 [id number] transverse A. Received in formalin labeled "polyp, colon transverse" are two irregular pieces of velasco-pink tissue measuring 0.2 x 0.1 x 0.1 and 0.3 x 0.2 x 0.1 cm. The specimen is submitted in toto in a single cassette. DH/plPERFORMED. HEMOGLOBIN AND HEMATOCRIT 2018-05-28 12:17:00 Test Item Value Reference Range Comments HEMOGLOBIN (BEAKER) (test ryav=184) 9.6 GM/DL 13.7-17.5 HEMATOCRIT (BEAKER) (test okal=545) 30.2 % 40.1-51.0 [id number] 05:55:00 Test Item Value Reference Range Comments MAGNESIUM (BEAKER) (test tyky=756) 1.9 mg/dL 1.6-2.6 BASIC METABOLIC [id number] 05:55:00 Test Item Value Reference Range Comments SODIUM (BEAKER) (test 144 meq/L 136-145 ldmo=783) POTASSIUM (BEAKER) (test 3.7 meq/L 3.5-5.1 ixio=288) CHLORIDE (BEAKER) (test 112 meq/L 98-107 kgoz=077) CO2 (BEAKER) (test 24 meq/L 22-29 sdft=438) BLOOD UREA NITROGEN 10 mg/dL 7-21 (BEAKER) (test zabi=655) CREATININE (BEAKER) (test 0.72 mg/dL 0.57-1.25 zdix=632) GLUCOSE RANDOM (BEAKER) 98 mg/dL 70-105 (test pbzg=425) CALCIUM (BEAKER) (test 8.5 mg/dL 8.4-10.2 xshq=380) EGFR (BEAKER) (test 106 mL/min/1.73 sq m ESTIMATED GFR IS NOT cgew=9831) ACCURATE CREATININE CLEARANCE IN PREDICTING GLOMERULAR FILTRATION RATE. ESTIMATED GFR IS NOT APPLICABLE FOR DIALYSIS PATIENTS. [id number] 05:42:00 Test Item Value Reference Range Comments PROTIME (BEAKER) (test pmlw=817) 16.0 seconds 11.7-14.7 INR (BEAKER) (test iicn=833) 1.3 <=5.9 PARTIAL THROMBOPLASTIN TIME (BEAKER) (test 28.2 seconds 22.5-36.0 poaq=368) RECOMMENDED COUMADIN/WARFARIN INR THERAPY RANGESSTANDARD DOSE: 2.0 - 3.0 Includes: PROPHYLAXIS forvenous thrombosis, systemic embolization; TREATMENT for venous thrombosis and/or pulmonary embolus.HIGH RISK: Target INR is 2.5-3.5 for patients with mechanical heart valves.HEMOGLOBIN AND [id number] 05 :35:00 Test Item Value Reference Range Comments HEMOGLOBIN (BEAKER) (test zmue=041) 9.5 GM/DL 13.7-17.5 HEMATOCRIT (BEAKER) (test dhos=584) 30.3 % 40.1-51.0 HEMOGLOBIN AND [id number] 22:10:00 Test Item Value Reference Range Comments HEMOGLOBIN (BEAKER) (test qpmo=221) 10.8 GM/DL 13.7-17.5 HEMATOCRIT (BEAKER) (test uuet=806) 34.4 % 40.1-51.0 [id number] 14:51:00 Test Item Value Reference Range Comments MAGNESIUM (BEAKER) (test 2.1 mg/dL 1.6-2.6 Specimen slightly hemolyzed mxsl=226) BASIC METABOLIC [id number] 14:51:00 Test Item Value Reference Range Comments SODIUM (BEAKER) (test 140 meq/L 136-145 ccjl=588) POTASSIUM (BEAKER) (test 4.4 meq/L 3.5-5.1 Specimen slightly tucs=939) hemolyzed CHLORIDE (BEAKER) (test 107 meq/L 98-107 bbnk=608) CO2 (BEAKER) (test 26 meq/L 22-29 ehfd=390) BLOOD UREA NITROGEN 16 mg/dL 7-21 (BEAKER) (test otdo=963) CREATININE (BEAKER) (test 0.91 mg/dL 0.57-1.25 Specimen slightly drcu=315) hemolyzed GLUCOSE RANDOM (BEAKER) 111 mg/dL 70-105 (test hoas=914) CALCIUM (BEAKER) (test 8.6 mg/dL 8.4-10.2 vvri=702) EGFR (BEAKER) (test 81 mL/min/1.73 sq m ESTIMATED GFR IS NOT xylf=6077) ACCURATE CREATININE CLEARANCE IN PREDICTING GLOMERULAR FILTRATION RATE. ESTIMATED GFR IS NOT APPLICABLE FOR DIALYSIS PATIENTS. [id number] 14:42:00 Test Item Value Reference Range Comments PROTIME (BEAKER) (test ngjr=461) 18.8 seconds 11.7-14.7 INR (BEAKER) (test kvum=643) 1.6 <=5.9 PARTIAL THROMBOPLASTIN TIME (BEAKER) (test 33.6 seconds 22.5-36.0 kzpq=757) RECOMMENDED COUMADIN/WARFARIN INR THERAPY RANGESSTANDARD DOSE: 2.0 - 3.0 Includes: PROPHYLAXIS forvenous thrombosis, systemic embolization; TREATMENT for venous thrombosis and/or pulmonary embolus.HIGH RISK: Target INR is 2.5-3.5 for patients with mechanical heart valves.CBC W/PLT COUNT & AUTO [id number] 14:41:00 Test Item Value Reference Range Comments WHITE BLOOD CELL COUNT (BEAKER) (test udsj=987) 9.6 K/ L 3.5-10.5 RED BLOOD CELL COUNT (BEAKER) (test yswe=106) 3.84 M/ L 4.63-6.08 HEMOGLOBIN (BEAKER) (test nbag=422) 11.2 GM/DL 13.7-17.5 HEMATOCRIT (BEAKER) (test dvhx=479) 34.9 % 40.1-51.0 MEAN CORPUSCULAR VOLUME (BEAKER) (test fsxn=546) 90.9 fL 79.0-92.2 MEAN CORPUSCULAR HEMOGLOBIN (BEAKER) (test 29.2 pg 25.7-32.2 irch=231) MEAN CORPUSCULAR HEMOGLOBIN CONC (BEAKER) (test 32.1 GM/DL 32.3-36.5 fodb=683) RED CELL DISTRIBUTION WIDTH (BEAKER) (test 16.0 % 11.6-14.4 sbxb=267) PLATELET COUNT (BEAKER) (test vftg=457) 241 K/CU MM 150-450 MEAN PLATELET VOLUME (BEAKER) (test uetc=101) 11.0 fL 9.4-12.4 NUCLEATED RED BLOOD CELLS (BEAKER) (test 0 /100 WBC 0-0 cege=273) NEUTROPHILS RELATIVE PERCENT (BEAKER) (test 60 % jonx=467) LYMPHOCYTES RELATIVE PERCENT (BEAKER) (test 19 % pbus=161) MONOCYTES RELATIVE PERCENT (BEAKER) (test 7 % athg=942) EOSINOPHILS RELATIVE PERCENT (BEAKER) (test 14 % ynsv=645) BASOPHILS RELATIVE PERCENT (BEAKER) (test 1 % otpa=612) NEUTROPHILS ABSOLUTE COUNT (BEAKER) (test 5.74 K/ L 1.78-5.38 eymi=418) LYMPHOCYTES ABSOLUTE COUNT (BEAKER) (test 1.80 K/ L 1.32-3.57 cldg=549) MONOCYTES ABSOLUTE COUNT (BEAKER) (test 0.62 K/ L 0.30-0.82 zwcg=836) EOSINOPHILS ABSOLUTE COUNT (BEAKER) (test 1.29 K/ L 0.04-0.54 edro=761) BASOPHILS ABSOLUTE COUNT (BEAKER) (test 0.08 K/ L 0.01-0.08 qmqz=585) IMMATURE GRANULOCYTES-RELATIVE PERCENT (BEAKER) 1 % 0-1 (test mjbz=4012)
[2018-12-11] MEDS ORDERED: MORPHINE 4 MG/ML SYR ONE ×2 (13:50→15:16)
[2018-12-11] MEDS ORDERED: ONDANSETRON 4 MG/2 ML VIAL ONE (13:50)
[2018-12-11 14:18] LABS: Absolute Lymphocytes (CBC) 2.3 K/uL (0.7-4.9); Absolute Monocytes 0.5 K/uL (0.1-1.3); Basophils % 1.1 % (0-1.3); Eosinophils % 20.5 % (0-4.4); Hematocrit 46.6 % (39.6-49.0); Lymphocytes % 26.1 % (15.3-44.8); MPV 9.2 fL (7.6-11.3); Monocytes % 6.1 % (3.3-12.3)
[2018-12-11] MEDS ORDERED: TETANUS & DIPHTHERIA TOX,ADULT 0.5 ML VIAL ONE (14:25)
[2018-12-11 14:28] LABS: Potassium 4.4 mmol/L (3.5-5.1)
[2018-12-11] MEDS ORDERED: CEFAZOLIN/SWI 1gm 1 GM/10 ML SYR IVP ONE (14:30)
[2018-12-11 14:32] LABS: Protime INR 1.69
--- NOTE | 2018-12-11 14:55 | RAD REPORT ---
EXAM DESCRIPTION: RAD - Hand Right 3 View - 12/11/2018 2:11 pm CLINICAL HISTORY: Right hand pain status post injury FINDINGS: A bandage overlies the first digit obscuring detail. Lucency is present within the base of first distal phalanx. It is uncertain if this is the site of in jury representing a fracture or secondary to overlying artifact No dislocation seen
[2018-12-11 15:28] LABS: Blood Morphology Comment NOT SEEN (NOT SEEN); Platelet Estimate ADEQ
[2018-12-11] MEDS ORDERED: LIDOCAINE 1% MPF 2 ML AMPULE ONE (15:28)
[2018-12-11] MEDS ORDERED: LIDOCAINE 1% 20 ML MDV ONE (15:28)
--- NOTE | 2018-12-11 15:53 | EDPHYS ---
Physician Documentation [facility] Name: Guero Ernst Age: 78 yrs Sex: Male : 1940 Arrival Date: 12/11/2018 Time: 13:18 Bed 28 Private MD: ED Physician Scott Meneses HPI: 12/11 14:31 This 78 yrs old Male presents to ER via Ambulatory with complaints of Thumb rn Injury. 14:31 The patient or guardian reports injury, a laceration. The complaints affect the IP of rn right thumb. Onset: The symptoms/episode began/occurred just prior to arrival. Severity of symptoms: At their worst the symptoms were moderate, in the emergency department the symptoms are unchanged. The patient has experienced a previous episode. Reports cut right thumb on table saw [employer], on xarelto for afib, took last xarelto last night. No other injuries. . Historical: - Allergies: 13:32 No Known Allergies; ss - PMHx: 13:32 Atrial Fib; Hyperlipidemia; Hypertension; ss - PSHx: 13:32 Bowel resection; Knee surgery; shoulder surgery; ss - Immunization history:: Adult Immunizations up to date. - Social history:: Smoking status: Patient/guardian denies using tobacco. - Ebola Screening: : Patient denies exposure to infectious person Patient denies travel to an Ebola-affected area in the 21 days before illness onset. - Family history:: not pertinent. - Hospitalizations: : No recent hospitalization is reported. ROS: 14:31 Constitutional: Negative for fever, chills, and weight loss, MS/Extremity: + right rn thumb laceration/injury Exam: 14:31 Constitutional: This is a well developed, well nourished patient who is awake, alert, rn anxious, right thumb wrapped in towel MS/ Extremity: Pulses equal, no cyanosis. + right thumb with volar laceration overlying IP joint, limited flexion across IP joint of right thumb, laceration approx 4cm long and jagged. Vital Signs: 13:24 BP 149 / 118; Pulse 68; Resp 18; Pain 10/10; ca1 13:32 BP 149 / 118; Pulse 77; Resp 18; Temp 97.8(O); Pulse Ox 99% on R/A; Weight 99.79 kg; ss Height 6 ft. 0 in. (182.88 cm); Pain 8/10; 14:49 BP 126 / 77; Pulse 70; Resp 18; Pulse Ox 95% on R/A; ca1 15:36 BP 128 / 86; Pulse 67; Resp 19; Pulse Ox 96% on R/A; ca1 16:38 BP 124 / 82; Pulse 67; Resp 19; Pulse Ox 95% on R/A; ca1 17:31 BP 124 / 80; Pulse 67; Resp 19; Pulse Ox 96% on R/A; ca1 13:32 Body Mass Index 29.84 (99.79 kg, 182.88 cm) ss Laceration: 15:48 Wound Repair of 4cm ( 1.6in ) subcutaneous laceration to palmar aspect of proximal rn phalanx of right thumb. Distal neuro/vascular/tendon intact. Anesthesia: Digital block administered with 4 mls of 1% lidocaine. Wound prep: Extensive cleansing by me, Wound irrigation by nurse, Wound debrided, Wound explored, Copious irrigation. Skin closed with 5 3-0 Prolene using interrupted sutures and sterile technique. Dressed with Kerlix. Patient tolerated well. MDM: 13:27 Patient medically screened. rn 15:07 ED course: Consulted with Dr. Greer, agrees to see patient, requests admission to rn hospitalist service. Wound cleaned/irrigated, abx given, given pain meds, will temporarily place a few sutures to reapproximate wound. 15:48 Differential diagnosis: open fracture. Data reviewed: vital signs, nurses notes, mini lab operator test result(s), radiologic studies, plain films, and as a result, I will admit patient. Counseling: I had a detailed discussion with the patient and/or guardian regarding: the historical points, exam findings, and any diagnostic results supporting the discharge/admit diagnosis, lab results, radiology results, the need for further work-up and treatment in the hospital. Response to treatment: the patient's symptoms have markedly improved after treatment, and as a result, I will admit patient. ED course: Wound loosely approximated for hemostasis, extensive cleaning, dressed, and bleeding controlled. Will admit with IV abx and pain control to hospitalist. . 12/11 13:33 Order name: CBC with Diff; Complete Time: 16:00 rn 12/11 13:33 Order name: Basic Metabolic Panel; Complete Time: 14:42 rn 12/11 13:33 Order name: Protime (+inr); Complete Time: 16:00 rn 12/11 13:33 Order name: Ptt, Activated; Complete Time: 16:00 rn 12/11 13:33 Order name: XRAY Hand RIGHT 3 View; Complete Time: 14:59 rn 12/11 14:23 Order name: Manual Differential; Complete Time: 16:00 EDMS 12/11 13:33 Order name: IV Start; Complete Time: 13:52 rn 12/11 13:33 Order name: Wound Care; Complete Time: 13:34 rn 12/11 13:34 Order name: NPO; Complete Time: 14:10 rn Administered Medications: 13:39 Drug: Zofran 4 mg Route: IVP; Site: left antecubital; ca1 14:51 Follow up: Response: No adverse reaction ca1 13:42 Drug: morphine 4 mg Route: IVP; Site: left antecubital; ca1 14:52 Follow up: Response: No adverse reaction; Pain is decreased ca1 13:45 Drug: Tetanus-Diphtheria Toxoid Adult 0.5 ml {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 Exp: ca1 11/22/2020. Lot #: [id number]. } Route: IM; Site: left deltoid; 14:52 Follow up: Response: No adverse reaction ca1 14:40 Drug: Ancef 1 grams Route: IVPB; Site: left antecubital; ca1 14:52 Follow up: IV Status: Completed infusion; IVP per pharmacy protocol ca1 15:10 Drug: morphine 4 mg Route: IVP; Site: left antecubital; ca1 15:33 Follow up: Response: No adverse reaction; Pain is decreased ca1 15:30 Drug: Lidocaine (1 %) 1 vials {Note: Administered by Dr. Meneses.} Volume: 5 ml; Route: ca1 Infiltration; Disposition: 12/11/18 15:53 Hospitalization ordered by Genny Pennington for Inpatient Admission. Preliminary diagnosis are Nondisplaced fracture of distal phalanx of right thumb, Laceration of right thumb, Open fracture of right thumb. - Bed requested for Telemetry/MedSurg (Inpatient). - Status is Inpatient Admission. ca1 - Condition is Stable. - Problem is new. - Symptoms have improved. UTI on Admission? No Signatures: Dispatcher [employer] [facility] Geno Burch RN RN dw Nieto, Roman, MD MD rn Smir, Latricia, RN RN ss Alba Lawrence RN RN ca1 Corrections: (The following items were deleted from the chart) 17:03 15:53 Hospitalization Ordered by Genny Pennington MD for Inpatient Admission. Preliminary dw diagnosis is Nondisplaced fracture of distal phalanx of right thumb; Laceration of right thumb; Open fracture of right thumb. Bed requested for Telemetry/MedSurg (Inpatient). Status is Inpatient Admission. Condition is Stable. Problem is new. Symptoms have improved. UTI on Admission? No. rn 17:48 17:03 12/11/2018 15:53 Hospitalization Ordered by Genny Pennington MD for Inpatient ca1 Admission. Preliminary diagnosis is Nondisplaced fracture of distal phalanx of right thumb; Laceration of right thumb; Open fracture of right thumb. Bed requested for Telemetry/MedSurg (Inpatient). Status is Inpatient Admission. Condition is Stable. Problem is new. Symptoms have improved. UTI on Admission? No. dw
--- NOTE | 2018-12-11 15:53 | ER ---
Nurse's Notes [facility] Name: Guero Ernst Age: 78 yrs Sex: Male : 1940 Arrival Date: 12/11/2018 Time: 13:18 Bed 28 Private MD: Diagnosis: Nondisplaced fracture of distal phalanx of right thumb;Laceration of right thumb;Open fracture of right thumb Presentation: 12/11 13:15 Presenting complaint: Patient states: partial R thumb amputation after cutting it by ss accident with a table saw 30 minutes ago. Pt reports he is currently taking blood thinner medication for atrial fibrillation. Towel remains in place to affected area since placement at home. No blood saturation noted. Transition of care: patient was not received from another setting of care. Onset of symptoms was December 11, 2018. Risk Assessment: Do you want to hurt yourself or someone else? Patient reports no desire to harm self or others. Initial Sepsis Screen: Does the patient meet any 2 criteria? Yes Does the patient have a suspected source of infection? No. Patient's initial sepsis screen is negative. Care prior to arrival: None. 13:15 Method Of Arrival: Ambulatory ss 13:15 Acuity: ALLEN 2 ss Historical: - Allergies: 13:32 No Known Allergies; ss - PMHx: 13:32 Atrial Fib; Hyperlipidemia; Hypertension; ss - PSHx: 13:32 Bowel resection; Knee surgery; shoulder surgery; ss - Immunization history:: Adult Immunizations up to date. - Social history:: Smoking status: Patient/guardian denies using tobacco. - Ebola Screening: : Patient denies exposure to infectious person Patient denies travel to an Ebola-affected area in the 21 days before illness onset. - Family history:: not pertinent. - Hospitalizations: : No recent hospitalization is reported. Screenin:24 Abuse screen: Denies threats or abuse. Denies injuries from another. Nutritional ca1 screening: No deficits noted. Tuberculosis screening: No symptoms or risk factors identified. Fall Risk None identified. Assessment: 13:24 General: Appears in no apparent distress. uncomfortable, Behavior is calm, cooperative, ca1 appropriate for age. Pain: Complains of pain in dorsal aspect of proximal phalanx of right thumb and palmar aspect of proximal phalanx of right thumb Pain currently is 10 out of 10 on a pain scale. Neuro: Level of Consciousness is awake, alert, obeys commands, Oriented to person, place, time, situation. Cardiovascular: Heart tones S1 S2 present Capillary refill < 3 seconds Patient's skin is warm and dry. Respiratory: Airway is patent Respiratory effort is even, unlabored, Respiratory pattern is regular, symmetrical, Breath sounds are clear bilaterally. GI: No signs and/or symptoms were reported involving the gastrointestinal system. : No signs and/or symptoms were reported regarding the genitourinary system. EENT: No signs and/or symptoms were reported regarding the EENT system. Derm: Skin is intact, Skin is pink, warm \T\ dry. Musculoskeletal: Amputation of palmar aspect of proximal phalanx of right thumb. Injury Description: Amputation sustained to palmar aspect of proximal phalanx of right thumb is partial, was sustained 30-60 minutes ago. 14:30 Reassessment: Patient appears in no apparent distress at this time. Patient and/or ca1 family updated on plan of care and expected duration. Pain level reassessed. Patient is alert, oriented x 3, equal unlabored respirations, skin warm/dry/pink. 15:36 Reassessment: Patient appears in no apparent distress at this time. Patient and/or ca1 family updated on plan of care and expected duration. Pain level reassessed. Patient is alert, oriented x 3, equal unlabored respirations, skin warm/dry/pink. Dr. Meneses at bedside for Lac repair. 16:38 Reassessment: Patient appears in no apparent distress at this time. Patient and/or ca1 family updated on plan of care and expected duration. Pain level reassessed. Patient is alert, oriented x 3, equal unlabored respirations, skin warm/dry/pink. awaiting room assignment. 17:31 Reassessment: Patient appears in no apparent distress at this time. Patient and/or ca1 family updated on plan of care and expected duration. Pain level reassessed. Patient is alert, oriented x 3, equal unlabored respirations, skin warm/dry/pink. Vital Signs: 13:24 BP 149 / 118; Pulse 68; Resp 18; Pain 10/10; ca1 13:32 BP 149 / 118; Pulse 77; Resp 18; Temp 97.8(O); Pulse Ox 99% on R/A; Weight 99.79 kg; ss Height 6 ft. 0 in. (182.88 cm); Pain 8/10; 14:49 BP 126 / 77; Pulse 70; Resp 18; Pulse Ox 95% on R/A; ca1 15:36 BP 128 / 86; Pulse 67; Resp 19; Pulse Ox 96% on R/A; ca1 16:38 BP 124 / 82; Pulse 67; Resp 19; Pulse Ox 95% on R/A; ca1 17:31 BP 124 / 80; Pulse 67; Resp 19; Pulse Ox 96% on R/A; ca1 13:32 Body Mass Index 29.84 (99.79 kg, 182.88 cm) ss ED Course: 13:18 Patient arrived in ED. as 13:24 Alba Lawrence, RN is Primary Nurse. ca1 13:24 Patient has correct armband on for positive identification. Bed in low position. Call ca1 light in reach. Side rails up X 1. Pulse ox on. NIBP on. 13:26 Triage completed. ss 13:27 Scott Meneses MD is Attending Physician. rn 13:32 Arm band placed on right wrist. ss 13:48 Inserted saline lock: 18 gauge in left antecubital area, using aseptic technique. Blood ca1 collected. 14:11 XRAY Hand RIGHT 3 View In Process Unspecified. EDMS 15:39 Assist provider with laceration repair on palmar aspect of proximal phalanx of right ca1 thumb that was between 12.6 to 20 cm using sutures. Set up tray. Performed by Scott Meneses MD Dressed with 4X4s, Kerlix, Patient tolerated well. 15:51 Genny Pennington MD is Hospitalizing Provider. rn 17:47 Patient admitted, IV remains in place. 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 Exp: ca1 11/22/2020. Lot #: [id number]. } Route: IM; Site: left deltoid; 14:52 Follow up: Response: No adverse reaction ca1 14:40 Drug: Ancef 1 grams Route: IVPB; Site: left antecubital; ca1 14:52 Follow up: IV Status: Completed infusion; IVP per pharmacy protocol ca1 15:10 Drug: morphine 4 mg Route: IVP; Site: left antecubital; ca1 15:33 Follow up: Response: No adverse reaction; Pain is decreased ca1 15:30 Drug: Lidocaine (1 %) 1 vials {Note: Administered by Dr. Meneses.} Volume: 5 ml; Route: ca1 Infiltration; Outcome: 15:53 Decision to Hospitalize by Provider. rn 17:47 Admitted to Med/surg accompanied by tech, family with patient, via wheelchair, room ca1 214, with chart, Report called to Elise Lucio RN 17:47 Condition: stable 17:47 Instructed on the need for admit, Demonstrated understanding of instructions. 17:48 Patient left the ED. ca1 Signatures: Dispatcher [employer] EDLizet Valencia Roman, MD MD rn Smirch, Shelby, RN RN Alba Lawrence RN RN ca1 Corrections: (The following items were deleted from the chart) 14:51 14:39 Zofran 4 mg IVP in left antecubital ca1 ca1 14:51 14:42 morphine 4 mg IVP in left antecubital ca1 ca1
[2018-12-11] MEDS ORDERED: HYDRALAZINE HCL 20 MG/ML VIAL IV PRN (17:51)
[2018-12-11] MEDS ORDERED: ONDANSETRON 4 MG/2 ML VIAL IV PRN (17:51)
[2018-12-11] MEDS ORDERED: ACETAMINOPHEN 500 MG TAB PO PRN (17:51)
[2018-12-11 18:19] VITALS: BMI 29.8
[2018-12-11] MEDS: NA CHLORIDE 0.9% 1,000 ML IV SCH ×2 (18:32→19:50)
[2018-12-11] MEDS ORDERED: FUROSEMIDE 20 MG/ 2ML VIAL IV ONE (19:00)
[2018-12-11] MEDS: MORPHINE 2 MG/ML SYR IV PRN (19:52)
[2018-12-11] MEDS: CARVEDILOL 25 MG TAB PO SCH (21:00)
[2018-12-11] MEDS ORDERED: NA CHLORIDE 0.9% 250 ML ONE (22:28)
[2018-12-12] MEDS: HYDROCODONE/APAP 7.5/325 MG TAB PO PRN (00:03)
[2018-12-12] MEDS: DIPHENHYDRAMINE 25 MG TAB/CAP PO PRN ×2 (01:50→21:21)
--- NOTE | 2018-12-12 03:38 | HP ---
Date of Admission: 12/11/2018 Chief Complaint: Right thumb laceration. Consultants: Ruben Greer M.D. with Plastic Surgery. Code status: Full History Of Present Illness: The patient is a 78-year-old male with past medical history of chronic atrial fibrillation, on Xarelto; hypertension; dyslipidemia, comes in with laceration of his right thumb following using a table saw. The patient was attempting to dislodge a piece of wood when his thumb accidentally came in the way of the saw. The patient reported significant pain which was severe, sharp, bleeding, and difficulty flexing his thumb. The patient's symptoms are constant, moderate, progressively worsening. The patient came into the ER for further evaluation. X-ray was done of his hand which showed no dislocation, lucency on the first base of the distal phalanx, could be possible fracture or overlying artifact. The patient was given local anesthesia by the ER physician and had hemostasis through multiple stitches. Dr. Greer was contacted by the ER physician, who recommended observation and to take the patient to OR in a.m. for surgical repair. The patient also received a gram of Ancef as well as pain medications. The patient also received a tetanus dose. In the ER, the patient was awake, alert, oriented x3, complaining of some pain. Past Medical History: Atrial fibrillation, on Xarelto; hypertension; dyslipidemia. Surgical History: Shoulder surgery, cholecystectomy. The patient also had right knee septic joint with aspiration last year. Allergies: NO KNOWN DRUG ALLERGIES. Medications: List reviewed. Social History: The patient is a former smoker. Does drink alcohol occasionally. No illicit drug use. Lives at home. Independent in his activities of daily living. 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 Review of Systems: An 11-point system reviewed, negative except as per HPI. Family History: Positive for coronary artery disease. Brother had HI at age 42. Sister had HI at age of 46. Mother also had HI. Physical Examination: Vital Signs: Blood pressure 149/118, pulse 68, respirations 18, O2 99% on room air, temperature 97.8. General: Awake, alert, oriented x3 elderly male, moderate distress due to pain. HEENT: Normocephalic, atraumatic. PERRLA, EOMI. Moist mucous membranes. Oropharynx is clear. Poor dentition. Conjunctivae anicteric. Neck: Supple. No JVD. Trachea midline. CV: S1, S2. Irregularly irregular. Peripheral pulses present. Respiratory: Clear to auscultation bilaterally. No wheezing or stridor. No use of accessory muscles. Gastrointestinal: Abdomen is soft, nontender, nondistended. Positive bowel sounds. No guarding or rigidity. Extremities: No clubbing, cyanosis, or edema. No calf tenderness. Skin: Right thumb bandaged. Decreased range of motion to flexion. Tenderness to palpation. Neuro: Cranial nerves 2 through 12 intact grossly. No focal neurological deficit. Speech is normal. Strength is 5/5, bilateral upper and lower extremities. Laboratory Data: WBC 8.6, H and H 15.2 and 46.6, platelets 219, neutrophils 46% . INR 1.69. Sodium 143, potassium 4.4, chloride 110, CO2 28, BUN 12, creatinine 1.01, glucose 121, calcium 9.1. Imaging Studies: X-ray of the hand shows bandage overlies the first digit obscuring detail. Lucencies present within the base of the first distal phalanx. Uncertain if this is the site of injury representing a fracture or secondary to overlying artifact. No dislocation seen. Assessment And Plan: A 78-year-old male with: 1. Acute right thumb laceration secondary to table saw, initial encounter. The patient does have some stitches for hemostasis. Will need surgical evaluation for possible repair of tendons. Dr. Greer has been consulted. He will take the patient to the OR in a.m. The patient received antibiotics. We will continue with pain control with morphine and [place] for breakthrough. Add Benadryl as the patient did report some itching. 2. Possible first distal phalanx fracture, right, may be artifact. We will continue to monitor. 3. Atrial fibrillation, chronic, on Xarelto. We will hold Xarelto. The patient's last dose was yesterday. We will give 1 dose of FFP in anticipation of surgery in a.m. We will discuss with Dr. Stewart regarding the patient's recent cardiac workup. Echocardiogram from February of 2018 shows ejection fraction of 50% to 55%. 4. Hypertensive heart disease. The patient has left ventricular hypertrophy. 5. Overweight, body mass index 29.8. 6. Hypertension, not well controlled, likely due to pain. 7. Hyperlipidemia, mixed. We will resume home medications as appropriate. Plan: Admit the patient to Med-Surg, place as observation. We will keep n.p.o. after midnight. Start on IV fluids. We will give 20 mg of Lasix after FFP. Anticipate surgery in a.m. MABLE Voice ID: [id number] MTDD
[2018-12-12 03:42] LABS: Absolute Monocytes 0.9 K/uL (0.1-1.3); Absolute Neutrophil 4.9 K/uL (1.8-8.0); Eosinophils % 15.6 % (0-4.4); Hematocrit 41.4 % (39.6-49.0); Lymphocytes % 21.6 % (15.3-44.8); MPV 9.3 fL (7.6-11.3); Monocytes % 9.7 % (3.3-12.3); RBC Red Blood Cell Count 4.66 M/uL (4.33-5.43)
[2018-12-12 03:43] LABS: Protime INR 1.28
[2018-12-12 03:49] LABS: Albumin 3.5 g/dL (3.4-5.0); Bilirubin Total 0.8 mg/dL (0.2-1.0); Potassium 3.7 mmol/L (3.5-5.1); Protein, Total 6.5 g/dL (6.4-8.2)
[2018-12-12] MEDS: ATORVASTATIN 80 MG TAB PO SCH (03:49)
[2018-12-12] MEDS: PANTOPRAZOLE 40MG TABLET PO SCH (03:51)
[2018-12-12] MEDS ORDERED: KCL 20 MEQ/100 mL IVPB 20 MEQ/100 ML BAG IV SCH (04:00)
[2018-12-12] MEDS: MORPHINE 2 MG/ML SYR IV PRN ×2 (06:16→21:18)
[2018-12-12] MEDS: LOSARTAN POTASSIUM 50 MG TABLET PO SCH (08:43)
[2018-12-12] MEDS: CARVEDILOL 25 MG TAB PO SCH ×2 (08:44→21:18)
[2018-12-12] MEDS ORDERED: PROPOFOL 200 MG/20 ML VIAL IV ONE (13:04)
[2018-12-12] MEDS ORDERED: FENTANYL CITR 100 MCG/2 ML ONE (13:04)
[2018-12-12] MEDS ORDERED: LIDOCAINE 2% MPF 5 ML VIAL ONE (13:04)
[2018-12-12] MEDS: NA CHLORIDE 0.9% 1,000 ML IV SCH ×2 (13:51→23:51)
[2018-12-12] MEDS: HYDROMORPHONE HCL 1 MG/ML INJ ONE ×2 (15:04→15:09)
[2018-12-12] MEDS ORDERED: CODEINE 30MG/APAP 300MG TAB PO PRN (15:12)
[2018-12-12] MEDS: SMZ./TMP. 800/160 MG TABLET PO SCH ×2 (18:03→21:18)
--- NOTE | 2018-12-12 18:40 | RAD REPORT ---
EXAM DESCRIPTION: Lesa Single View12/12/2018 6:34 pm CLINICAL HISTORY: Shortness of breath COMPARISON: May 2018 FINDINGS: The lungs appear clear of acute infiltrate. The heart is mildly to moderately enlarged IMPRESSION: No acute abnormalities displayed
[2018-12-12 18:47] LABS: Arterial Blood Carboxyhemoglob 1.7 % (0-1.5); Blood Gas Oxyhemoglobin 88.2 % (94-97); Blood O2 Saturation 90.4 % (92-98.5)
[2018-12-12] MEDS: ALBUTEROL 2.5 MG/3 ML NEB SOL NEB SCH (20:00)
[2018-12-12] MEDS: IPRATROPIUM BROM 0.5MG/2.5ML NEB SCH (20:00)
[2018-12-13] MEDS: HYDROCODONE/APAP 7.5/325 MG TAB PO PRN ×3 (00:37→13:51)
[2018-12-13 00:52] LABS: Arterial Blood Carboxyhemoglob 1.8 % (0-1.5); Blood Gas Oxyhemoglobin 85.8 % (94-97); Blood O2 Saturation 88.2 % (92-98.5)
[2018-12-13] MEDS: IPRATROPIUM BROM 0.5MG/2.5ML NEB SCH ×2 (02:00→07:25)
[2018-12-13] MEDS: ALBUTEROL 2.5 MG/3 ML NEB SOL NEB SCH ×2 (02:00→07:25)
--- NOTE | 2018-12-13 03:21 | CON ---
History Of Present Illness: A 78-year-old, white male, right-hand dominant, who put his right thumb to a table saw about noon, the day of admission. Tetanus has been given in the ER. Past Medical History: He has history of high blood pressure. Past Surgical History: Previous surgery of gallbladder, shoulder and knee surgery. Social History: Does not smoke. Drinks beer daily. Allergies: NO ALLERGIES. Medication: See list. Physical Examination: Vital Signs: 6 feet, 220 pounds. Extremities: He has a laceration, oblique, over the right thumb volar surface over the IPJ, extendin g from proximal ulnar to distal radial. Laboratory Findings: X-ray shows fracture of the IPJ. Assessment: Open wound with tendon injury as well as a fracture. Plan: Undergo possible tendon repair and possible fusion. SILVIA/ZULEYKA Voice ID: [id number] Report ID: [id number]
[2018-12-13] MEDS: PANTOPRAZOLE 40MG TABLET PO SCH (06:18)
[2018-12-13 06:41] LABS: Potassium 3.6 mmol/L (3.5-5.1)
--- NOTE | 2018-12-13 08:06 | OP ---
Surgeon: Ruben Greer MD Preoperative Diagnosis: Open fracture or wound of right thumb with digital nerve injury Postoperative Diagnosis: Open fracture or wound of right thumb with digital nerve injury. Procedure Performed: Microdissection and repair of radioulnar digital nerves, fusion of interphalangeal joint of the thumb, simple closure of 4-cm wound, and splint. Anesthesia: General. Procedure In Detail: After satisfactory induction of general anesthesia, the right hand was prepped with Betadine scrub, Betadine paint, dry sterile drapes applied in the usual manner. The arm was elevated, exsanguinated with an Esmarch, tourniquet was inflated to 250 mmHg. Hand placed on [place] table. Scalpel, forceps, tenotomy scissors were used to debride the skin and subcutaneous tissue as needed. A proximal extension was made of the ulnar side , dissected down. The patient had laceration into the IPJ and there are some small bone fragments. These were removed. Then, the bone edges were straightened with microsaw and fusion was performed with 0.035 k wires from proximal to distal on the distal fracture and then used to impale the proximal bone. After this was done, the patient then had the microscope brought to the field. Digital nerves were identified, both radial and ulnar,were _ microdissected and repaired with 9-0 nylon sutures. At this time, tourniquet was released. Electrocautery was used for hemostasis. Prior to the repair, the wound was jet lavage irrigated with 3 L of Betadine solution. Closed the skin with 4-0 Prolene vertical mattress, dressed with Xeroform, 2-inch Hugo, and a thumb spica splint. The patient tolerated the procedure well and returned to recovery. SILVIA/ZULEYKA Voice ID: [id number] Report ID: [id number] RODNEY
[2018-12-13] MEDS ORDERED: POTASSIUM CL SA 10 MEQ TAB PO ONE (09:00)
[2018-12-13] MEDS: LOSARTAN POTASSIUM 50 MG TABLET PO SCH (09:00)
[2018-12-13] MEDS: CARVEDILOL 25 MG TAB PO SCH (09:00)
[2018-12-13] MEDS: SMZ./TMP. 800/160 MG TABLET PO SCH (09:24)
[2018-12-13] MEDS: ATORVASTATIN 80 MG TAB PO SCH (09:24)
[2018-12-13 09:41] VITALS: O2SAT 95
[2018-12-13] MEDS: NA CHLORIDE 0.9% 1,000 ML IV SCH (09:51)
[2018-12-13] MEDS ORDERED: METHYLPREDNISOLONE 40 MG INJ IV ONE (11:21)
[2018-12-13 12:11] VITALS: BP 109/69; TEMP 98.9
--- NOTE | 2018-12-13 14:17 | DS ---
The patient is a 78-year-old, white male, right-hand dominant, who cut his right thumb on a table saw at noon on the day of admission. Decided coming here. He has a history of high blood pressure. Pr evious surgery to gallbladder, shoulder and knee. He does not smoke. Drinks beer daily. Allergies are not listed. Medications, see his list. He has on physical examination numbness of the distal portion of the right thumb. Oblique laceration s proximal ulnar to distal radial. X-ray shows a fracture. He was taken to surgery, underwent debridement and fusion. Microscopic repair of ulnar, radial, and digital nerves, and a splint. He is discharged on Bactrim DS 1 tab p.o. q.12 hours and Tylenol No. 3 one tab p.o. q.4 hours p.r.n. pain. He will return to office following Monday at 9 o'clock at [facility]. Condition at discharge good. PRIMITIVO Voice ID: [id number] Report ID: [id number]
--- NOTE | 2018-12-13 15:36 | DS ---
Date of Discharge: 12/13/2018 Aligner: Dr. Greer with Plastic Surgery. Procedures: On 12/12/2018, right thumb laceration repair including vessels, nerves, and tendons. Discharge Diagnoses: 1. Right thumb laceration initial encounter. 2. Possible first distal phalanx fracture, right. 3. Atrial fibrillation chronic, on Xarelto. 4. Hypertensive heart disease. 5. Overweight, BMI 29.8. 6. Hypertension, essential. 7. Mixed hyperlipidemia. Hospital Course: The patient is a 78-year-old male, who had an accidental laceration of his thumb due to a table saw accident. The patient came into the ER, had stitches placed for hemostasis, who was seen by Dr. Greer and taken for surgery for a thumb laceration repair. He was given Ancef prior to surgery. He was also started on pain medications and IV fluids. The patient did have some uncontrolled blood pressure, which was likely due to his pain. Overall, patient remained stable throughout the course of the hospital stay. He was afebrile. His white count remained normal. He was given 1 unit of FFP to reverse the effects of Xarelto. The patient did well postoperatively. He was then cleared for discharge. Followup: He will follow up with primary care physician in 2-3 days. Follow up with Dr. Greer in 1 week. Return to ER for worsening condition. Diet: Heart healthy. Activity: No driving or operating heavy machinery while on narcotics. Medications: As per medication reconciliation list. Finish off course of Bactrim. Physical Examination: General: Awake, alert, oriented, no acute distress. CV: S1 and S2. No murmurs. Respiratory: Moving air well bilaterally. Abdomen: Soft, nontender, nondistended. Positive bowel sounds. Extremities: No clubbing, cyanosis, edema. Musculoskeletal: Right thumb bandaged. No signs of drainage. Neurologic: Nonfocal. ADDENDUM: Patient developed hypoxia, unable to be weaned off O2 therefore DC was cancelled. ABG, CXR ordered. Placed on BIPAP. SA/MODL Voice ID: [id number] Report ID: [id number] RODNEY
--- NOTE | 2018-12-14 12:30 | DS ---
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 Fusion of interphalangeal joint of the thumb and splint. Discharge Diagnoses: 1.Acute right thumb laceration with tendon injury, status post repair. 2.Distal phalanx fracture status post fusion and splint. 3.Atrial fibrillation, chronic, on Xarelto. 4.Hypertensive heart disease. 5.Overweight, BMI 29.8. 6.Hypoxia secondary to chronic obstructive pulmonary disease. 7.Chronic obstructive pulmonary disease has been until now undiagnosed. The patient will need pulmo nary function tests as outpatient. 8.Essential hypertension stable. 9.Hyperlipidemia. Hospital Course: The patient is a 78-year-old male who comes in with right thumb laceration after ac cidental injury using a table saw. The patient was evaluated by Dr. Greer and was taken for radi al and ulnar nerve repair, tendon repair and had the procedures mentioned above. The patient tolerat ed the procedures well. However, postoperatively, he did have some hypoxia. The patient was unable to be weaned off oxygen. He was saturating 89% on room air. The patient initially did not disclose any history of chronic obstructive pulmonary disease. He did have a history of smoking, however, had quit 20 years ago. The patient was given breathing treatments. Chest x-ray was done which was jeronimo r. ABG showed hypercapnia with metabolic compensation as his bicarb was elevated indicating that he is a chronic CO2 retainer secondary to COPD. The patient's discharge was held overnight. He was obs erved for worsening condition of his hypoxia. The patient was placed on BiPAP. His repeat ABG showe d improvement in his pCO2 levels. The patient was unable to be weaned off oxygen with a goal O2 satu ration of 89-91 percent. The patient will be discharged home on inhalers. Will need to follow up [facility] for outpatient pulmonary function tests. Discharge Condition: Stable. Medications: As per medication reconciliation list. Followup: Follow up with primary care physician in 2-3 days. Follow up with plastic surgeon, Dr. Juan cárdenas in 1 week. Establish care with four h agent in 2 weeks for PFTs. Return to ER for worsenin g condition. Diet: Heart healthy. Activity: No driving or operating heavy machinery while on narcotics. Physical Examination: General: Awake, alert, oriented x3, elderly male, overweight, BMI 29.8, no acute distress. CV: S1, S2. Respiratory: Moving air well bilaterally. Abdomen: Soft, nontender, nondistended. Positive bowel sounds. Extremities: No clubbing, cyanosis, or edema. Neurologic: Nonfocal. Musculoskeletal: Right thumb bandaged. No drainage. No signs of infection. SA/MODL Voice ID: [id number] Report ID: [id number]
== END 2018-12-13 13:55 | disposition home or self-care (01) ==
LOC: ER 13:16 → ERHOLD 16:32 → 2ND 17:32
PROVIDERS: ADMIT Family Medicine; ATTEND Family Medicine
PROC: 0JQJ0ZZ Repair Right Hand Subcutaneous Tissue and Fascia, Open Approach (ICD-10-PCS; principal; 2018-12-11)
PROC: 01Q60ZZ Repair Radial Nerve, Open Approach (ICD-10-PCS; 2018-12-12)
PROC: 01Q40ZZ Repair Ulnar Nerve, Open Approach (ICD-10-PCS; 2018-12-12)
PROC: 0RGW04Z Fusion of Right Finger Phalangeal Joint with Internal Fixation Device, Open Approach (ICD-10-PCS; 2018-12-12)
DX: S62.521B Displaced fracture of distal phalanx of right thumb, initial encounter for open fracture (principal); S64.31XA Injury of digital nerve of right thumb, initial encounter; W31.2XXA Contact with powered woodworking and forming machines, initial encounter; Y92.009 Unspecified place in unspecified non-institutional (private) residence as the place of occurrence of the external cause; I48.2 Chronic atrial fibrillation; J44.9 Chronic obstructive pulmonary disease, unspecified; R09.02 Hypoxemia; I11.9 Hypertensive heart disease without heart failure; E78.2 Mixed hyperlipidemia; Z79.01 Long term (current) use of anticoagulants; Z23 Encounter for immunization
CPT/HCPCS: 12002; 36430; 85025 ×2; 80048 ×2; 36415 ×2; 86900; 86850; 85610 ×2; 86901; 85730 ×2; 80053; 71045; 73130; 90714; 94640; 82805 ×2; 94760 ×4; 96375; 96374; 99285; 64831; 64832; 69990; 26860; J2704; J1940; J3010; J2270 ×3; J2001; J1170; J0690; P9059; J7030 ×2; J2405; J2920

== ENCOUNTER 2021-09-15 13:23 | Emergency (ER) | payer OTHER ==
--- OUTSIDE RECORDS SUMMARY | 2021-09-15 13:26 | XMS REPORT | Continuity of Care Document ---
:1940 Author Organization [facility] Address [address] [place] [address] Dr. Lin [address] [place] [id number] Care Team Providers Name Role Phone Devorah MATTHEWS Attending Clinician Unavailable CHRISTINE REYNA Admitting Clinician Unavailable Problems This patient has no known problems. Allergies, Adverse Reactions, Alerts This patient has no known allergies or adverse reactions. Medications This patient has no known medications. Procedures This patient has no known procedures. Results Test Description Test Time Test Comments Results Result [facility] e Comments TISSUE EXAM 2018-05-30 Surgical Pathology 12:56:00 Report Case: [id number] Authorizing Provider: Shubham Hickman MD Collected: 05/28/2018 0906 Ordering Location: [address] Received: 05/28/2018 1537 Service Pathologist: Luis Alberto Malave MD Specimen: Polyp, Colon - Transverse PART A TRANSVERSE COLON POLYP, BIOPSY:COLONIC MUCOSA WITH HYPERPLASTIC FEATURES. Signing Pathologist Direct Phone Line: [phone] ally signed by Luis Alberto Malave MD on 05/30/2018 at 12:56 [id number] on transverse A. Received in formalin labeled "polyp, colon transverse" are two irregular pieces of velasco-pink tissue measuring 0.2 x 0.1 x 0.1 and 0.3 x 0.2 x 0.1 cm. The specimen is submitted in toto in a single cassette. DH/plPERFORMED. HEMOGLOBIN AND HEMATOCRIT 2018-05-28 12:17:00 Test Item Value Reference Range Interpretation Comme nts HEMOGLOBIN (BEAKER) (test code = 410) 9.6 GM/DL 13.7-17.5 L HEMATOCRIT (BEAKER) (test code = 411) 30.2 % 40.1-51.0 L [id number] 05:55:00 Test Item Value Reference Range Interpretation Comments MAGNESIUM (BEAKER) (test code = 1.9 mg/dL 1.6-2.6 627) BASIC METABOLIC [id number] 05:55:00 Test Item Value Reference Range Interpretation Comments SODIUM (BEAKER) 144 meq/L 136-145 (test code = 381) POTASSIUM (BEAKER) 3.7 meq/L 3.5-5.1 (test code = 379) CHLORIDE (BEAKER) 112 meq/L 98-107 H (test code = 382) CO2 (BEAKER) (test 24 meq/L 22-29 code = 355) BLOOD UREA NITROGEN 10 mg/dL 7-21 (BEAKER) (test code = 354) CREATININE (BEAKER) 0.72 mg/dL 0.57-1.25 (test code = 358) GLUCOSE RANDOM 98 mg/dL 70-105 (BEAKER) (test code = 652) CALCIUM (BEAKER) 8.5 mg/dL 8.4-10.2 (test code = 697) EGFR (BEAKER) (test 106 mL/min/1.73 ESTIM ATED GFR IS code = 1092) sq m NOT ACCURATE CREATININE CLEARANCE IN PREDICTING GLOMERULAR FILTRATION RATE . ESTIMATED GFR I S NOT APPLICABLE FOR DIALYSIS PATIEN TS. [id number] 05:42:00 Test Item Value Reference Range Interpretation Comments PROTIME (BEAKER) (test code = 16.0 seconds 11.7-14.7 H 759) INR (BEAKER) (test code = 370) 1.3 <=5.9 PARTIAL THROMBOPLASTIN TIME 28.2 seconds 22.5-36.0 (BEAKER) (test code = 760) RECOMMENDED COUMADIN/WARFARIN INR THERAPY RANGESSTANDARD DOSE: 2.0 - 3.0 Includes: PROPHYLAXIS forvenous thrombosis, systemic embolization; TREATMENT for venous thrombosis and/or pulmonary embolus.HIGH RISK: Target INR is 2.5-3.5 for patients with mechanical heart valves.HEMOGLOBIN AND [id number] 05:35:00 Test Item Value Reference Range Interpretation Comments HEMOGLOBIN (BEAKER) (test code = 9.5 GM/DL 13.7-17.5 L 410) HEMATOCRIT (BEAKER) (test code = 30.3 % 40.1-51.0 L 411) HEMOGLOBIN AND [id number] 22:10:00 Test Item Value Reference Range Interpretation Comments HEMOGLOBIN (BEAKER) (test code = 10.8 GM/DL 13.7-17.5 L 410) HEMATOCRIT (BEAKER) (test code = 34.4 % 40.1-51.0 L 411) [id number] 14:51:00 Test Item Value Reference Range Interpretation Comments MAGNESIUM (BEAKER) 2.1 mg/dL 1.6-2.6 Specimen slightly (test code = 627) hemolyzed BASIC METABOLIC [id number] 14:51:00 Test Item Value Reference Range Interpretation Comments SODIUM (BEAKER) 140 meq/L 136-145 (test code = 381) POTASSIUM (BEAKER) 4.4 meq/L 3.5-5.1 Specimen slightly (test code = 379) hemolyzed CHLORIDE (BEAKER) 107 meq/L 98-107 (test code = 382) CO2 (BEAKER) (test 26 meq/L 22-29 code = 355) BLOOD UREA NITROGEN 16 mg/dL 7-21 (BEAKER) (test code = 354) CREATININE (BEAKER) 0.91 mg/dL 0.57-1.25 Specimen slightly (test code = 358) hemolyzed GLUCOSE RANDOM 111 mg/dL 70-105 H (BEAKER) (test code = 652) CALCIUM (BEAKER) 8.6 mg/dL 8.4-10.2 (test code = 697) EGFR (BEAKER) (test 81 mL/min/1.73 ESTIMA JOEY GFR IS code = 1092) sq m NOT ACCURATE CREATININE CLEARANCE IN PREDICTING GLOMERULAR FILTRATION RATE . ESTIMATED GFR I S NOT APPLICABLE FOR DIALYSIS PATIEN TS. [id number] 14:42:00 Test Item Value Reference Range Interpretation Comments PROTIME (BEAKER) (test code = 18.8 seconds 11.7-14.7 H 759) INR (BEAKER) (test code = 370) 1.6 <=5.9 PARTIAL THROMBOPLASTIN TIME 33.6 seconds 22.5-36.0 (BEAKER) (test code = 760) RECOMMENDED COUMADIN/WARFARIN INR THERAPY RANGESSTANDARD DOSE: 2.0 - 3.0 Includes: PROPHYLAXIS forvenous thrombosis, systemic embolization; TREATMENT for venous thrombosis and/or pulmonary embolus.HIGH RISK: Target INR is 2.5-3.5 for patients with mechanical heart valves.CBC W/PLT COUNT & AUTO DIFFERENTIAL 2018-05-27 14:41:00 Test Item Value Reference Range Interpretation Comments WHITE BLOOD CELL COUNT (BEAKER) 9.6 K/ L 3.5-10.5 (test code = 775) RED BLOOD CELL COUNT (BEAKER) 3.84 M/ L 4.63-6.08 L (test code = 761) HEMOGLOBIN (BEAKER) (test code = 11.2 GM/DL 13.7-17.5 L 410) HEMATOCRIT (BEAKER) (test code = 34.9 % 40.1-51.0 L 411) MEAN CORPUSCULAR VOLUME (BEAKER) 90.9 fL 79.0-92.2 (test code = 753) MEAN CORPUSCULAR HEMOGLOBIN 29.2 pg 25.7-32.2 (BEAKER) (test code = 751) MEAN CORPUSCULAR HEMOGLOBIN CONC 32.1 GM/DL 32.3-36.5 L (BEAKER) (test code = 752) RED CELL DISTRIBUTION WIDTH 16.0 % 11.6-14.4 H (BEAKER) (test code = 412) PLATELET COUNT (BEAKER) (test 241 K/CU MM 150-450 code = 756) MEAN PLATELET VOLUME (BEAKER) 11.0 fL 9.4-12.4 (test code = 754) NUCLEATED RED BLOOD CELLS 0 /100 WBC 0-0 (BEAKER) (test code = 413) NEUTROPHILS RELATIVE PERCENT 60 % (BEAKER) (test code = 429) LYMPHOCYTES RELATIVE PERCENT 19 % (BEAKER) (test code = 430) MONOCYTES RELATIVE PERCENT 7 % (BEAKER) (test code = 431) EOSINOPHILS RELATIVE PERCENT 14 % (BEAKER) (test code = 432) BASOPHILS RELATIVE PERCENT 1 % (BEAKER) (test code = 437) NEUTROPHILS ABSOLUTE COUNT 5.74 K/ L 1.78-5.38 H (BEAKER) (test code = 670) LYMPHOCYTES ABSOLUTE COUNT 1.80 K/ L 1.32-3.57 (BEAKER) (test code = 414) MONOCYTES ABSOLUTE COUNT (BEAKER) 0.62 K/ L 0.30-0.82 (test code = 415) EOSINOPHILS ABSOLUTE COUNT 1.29 K/ L 0.04-0.54 H (BEAKER) (test code = 416) BASOPHILS ABSOLUTE COUNT (BEAKER) 0.08 K/ L 0.01-0.08 (test code = 417) IMMATURE GRANULOCYTES-RELATIVE 1 % 0-1 PERCENT (BEAKER) (test code = 2801)
--- NOTE | 2021-09-15 14:57 | EDPHYS ---
Physician Documentation [facility] Name: Guero Ernst Age: 81 yrs Sex: Male : 1940 Arrival Date: 09/15/2021 Time: 13:24 Bed 14 Private MD: ED Physician Anabel Yanez Historical: - Home Meds: 09/15 13:46 Xarelto 20 mg Oral tab 1 tab once daily [Active]; omeprazole 20 mg Oral cpDR 1 cap once jh5 daily [Active]; losartan 25 mg Oral tab 1 tab once daily [Active]; Ferralet 90 Dual-Iron Delivery 90-1-12-50 hl-vr-ppa-mg Oral tab [Active]; carvedilol 25 mg Oral tab 1 tab 2 times per day [Active]; atorvastatin 80 mg Oral tab 1 tab once daily [Active]; - PMHx: 13:46 Atrial Fib; Hyperlipidemia; Hypertension; jh5 - Immunization history:: Adult Immunizations up to date. - Social history:: Smoking status: Patient uses alcohol, occasionally. Vital Signs: 13:43 BP 121 / 96; Pulse 72; Resp 16; Temp 98.4; Pulse Ox 99% ; Weight 79.38 kg; Height 5 ft. jh5 9 in. (175.26 cm); 13:54 BP 145 / 102; Pulse 84; Temp 98.9; Pulse Ox 98% ; tp1 14:36 BP 132 / 88; Pulse 63; Resp 15 S; Pulse Ox 97% on R/A; jd3 13:43 Body Mass Index 25.84 (79.38 kg, 175.26 cm) 5 MDM: 14:50 Patient medically screened. sp3 14:54 ED course: Patient left during my history section due to wait time and not being happy sp3 with how long he had to wait before being seen. I try to explain to him that we were busy and we were happy to see him but patient elected to leave anyways.. Administered Medications: No medications were administered Disposition Summary: 09/15/21 14:56 Eloped Disposition: after being seen by provider sp3 Reason: other sp3 Signatures: Anabel Yanez MD MD sp3 Italia Perez RN RN [facility]
--- NOTE | 2021-09-15 14:57 | ER ---
Nurse's Notes [facility] Name: Guero Ernst Age: 81 yrs Sex: Male : 1940 Arrival Date: 09/15/2021 Time: 13:24 Bed 14 Private MD: Diagnosis: Presentation: 09/15 13:43 Chief complaint: Patient states: I always have sinus issues and allergies, but the last jh5 couple days I have been worse. Couple days ago I coughed up blood a little bit. Then this morning I was hooking my trailer up to go deer hunting and my nose started pouring out blood. Coronavirus screen: Vaccine status: Patient reports receiving the 2nd dose of the covid vaccine. Client denies travel out of the [place] in the last 14 days. Ebola Screen: Patient negative for fever greater than or equal to 101.5 degrees Fahrenheit, and additional compatible Ebola Virus Disease symptoms Patient denies exposure to infectious person. Patient denies travel to an Ebola-affected area in the 21 days before illness onset. Initial Sepsis Screen: Does the patient meet any 2 criteria? No. Patient's initial sepsis screen is negative. Does the patient have a suspected source of infection? No. Patient's initial sepsis screen is negative. Risk Assessment: Do you want to hurt yourself or someone else? Patient reports no desire to harm self or others. 13:43 Method Of Arrival: Ambulatory [facility] 13:43 Acuity: ALLEN 3 jh5 14:36 Onset of symptoms was September 15, 2021. jd3 Triage Assessment: 13:47 General: Appears in no apparent distress. uncomfortable, well groomed, well developed, jh5 well nourished, Behavior is calm, cooperative, appropriate for age. Pain: Complains of pain in abdomen. Historical: - Home Meds: 13:46 Xarelto 20 mg Oral tab 1 tab once daily [Active]; omeprazole 20 mg Oral cpDR 1 cap once jh5 daily [Active]; losartan 25 mg Oral tab 1 tab once daily [Active]; Ferralet 90 Dual-Iron Delivery 90-1-12-50 yk-hv-ohm-mg Oral tab [Active]; carvedilol 25 mg Oral tab 1 tab 2 times per day [Active]; atorvastatin 80 mg Oral tab 1 tab once daily [Active]; - PMHx: 13:46 Atrial Fib; Hyperlipidemia; Hypertension; jh5 - Immunization history:: Adult Immunizations up to date. - Social history:: Smoking status: Patient uses alcohol, occasionally. Screenin:36 Abuse screen: Denies threats or abuse. Nutritional screening: No deficits noted. jd3 Tuberculosis screening: No symptoms or risk factors identified. Fall Risk Ambulatory Aid- None/Bed Rest/Nurse Assist (0 pts). Gait- Normal/Bed Rest/Wheelchair (0 pts) Mental Status- Oriented to own ability (0 pts). Total Morgan Fall Scale indicates No Risk (0-24 pts). Assessment: 14:35 General: Appears in no apparent distress. comfortable, Behavior is calm, cooperative, jd3 appropriate for age. Pain: Denies pain. Neuro: Level of Consciousness is awake, alert, obeys commands, Oriented to person, place, time, situation. Cardiovascular: Capillary refill < 3 seconds Patient's skin is warm and dry. Respiratory: Airway is patent Respiratory effort is even, unlabored, Respiratory pattern is regular, symmetrical, Denies cough, shortness of breath. GI: No signs and/or symptoms were reported involving the gastrointestinal system. : No signs and/or symptoms were reported regarding the genitourinary system. EENT: Reports nasal congestion nose bleedings and coughing up blood. Derm: Skin is intact, Skin is dry, Skin is normal, Skin temperature is warm. Musculoskeletal: Circulation, motion, and sensation intact. Range of motion: intact in all extremities. 14:56 Reassessment: Patient appears in no apparent distress at this time. Patient and/or jd3 family updated on plan of care and expected duration. Pain level reassessed. Patient is alert, oriented x 3, equal unlabored respirations, skin warm/dry/pink. provider at bedside to see pt. pt reporting being displeased on having to wait 50 min to see the provider. the provider gave verbal reassurance, pt deciding to leave without treatment. eloped as doctor was talking to him slamming door open and walking out of ER through the front entrance with even and steady gait. Vital Signs: 13:43 BP 121 / 96; Pulse 72; Resp 16; Temp 98.4; Pulse Ox 99% ; Weight 79.38 kg; Height 5 ft. jh5 9 in. (175.26 cm); 13:54 BP 145 / 102; Pulse 84; Temp 98.9; Pulse Ox 98% ; tp1 14:36 BP 132 / 88; Pulse 63; Resp 15 S; Pulse Ox 97% on R/A; jd3 13:43 Body Mass Index 25.84 (79.38 kg, 175.26 cm) [facility] ED Course: 13:24 Patient arrived in ED. [facility] 13:46 Triage completed. [facility] 14:07 Anabel Yanez MD is Attending Physician. sp3 14:31 Ketan Coleman, RN is Primary Nurse. jd3 14:31 Arm band placed on. jd3 14:36 Patient has correct armband on for positive identification. Bed in low position. Call j light in reach. Side rails up X 1. Adult w/ patient. Pulse ox on. NIBP on. 14:59 No provider procedures requiring assistance completed. Patient did not have IV access jd3 during this emergency room visit. Administered Medications: No medications were administered Outcome: 14:59 Eloped from patient exam room, after seeing physician Time discovered patient gone: jd3 September 15, 2021 at 14:59 14:59 Condition: eloped jd3 15:00 Patient left the ED. [facility] Signatures: Ketan Coleman, SAM RN jAnabel Salinas MD MD sp3 Italia Perez RN RN 5 Arianna Martin [facility] Radha Jacome [facility]
[2021-09-15 15:51] VITALS: TEMP 98.9
[2021-09-15 15:52] VITALS: BP 132/88; O2SAT 97
== END 2021-09-15 15:00 | disposition left against medical advice (07) ==
LOC: ER 13:23
DX: R04.2 Hemoptysis (principal); I10 Essential (primary) hypertension; I48.91 Unspecified atrial fibrillation; Z79.01 Long term (current) use of anticoagulants
CPT/HCPCS: 99283

== ENCOUNTER 2024-12-02 15:43 | Inpatient (IN) | payer BC, OTHER ==
[2024-12-02] MEDS ORDERED: NA CHLORIDE 0.9% 3,000 ML ONE (16:25)
[2024-12-02 16:32] LABS: Absolute Lymphocytes (CBC) 0.9 K/uL (0.7-4.9); Absolute Monocytes 0.6 K/uL (0.1-1.3); Absolute Neutrophil 4.5 K/uL (1.8-8.0); Basophils % 0.4 % (0-1.3); Eosinophils % 0.1 % (0-4.4); Hematocrit 46.1 % (39.6-49.0); Lymphocytes % 14.9 % (15.3-44.8); MCHC 34.8 g/dL (32.0-36.0); MCV 92.1 fL (80-100); MPV 8.9 fL (7.6-11.3); Monocytes % 10.3 % (3.3-12.3); Neutrophils % 74.3 % (41.7-73.7); Nucleated Red Blood Cells % 0.1 % (0-0); Platelets 173 thou/uL (152-406); RBC Red Blood Cell Count 5.01 M/uL (4.33-5.43); Red Cell Distribution Width 14.8 % (12.1-15.2)
[2024-12-02 16:46] LABS: PT Prothrombin Time 12.5 SECONDS (10.0-13.0); PTT, Activated Partial Thromb 29.2 SECONDS (24.3-36.9); Protime INR 1.1
[2024-12-02 16:58] LABS: Albumin/Globulin Ratio 0.9 (1.1-1.8); Anion Gap 12.2 mEq/L (5.0-15.0); Bilirubin Total 0.6 mg/dL (0.2-1.0); Globulin 3.5 g/dL (2.3-3.5); Potassium 4.2 mEq/L (3.5-5.1); Protein, Total 6.5 g/dL (6.4-8.2)
--- NOTE | 2024-12-02 17:16 | RAD REPORT ---
EXAM: Chest Single View HISTORY: hypotension, abdominal pain, fall COMPARISON: 07/09/2020 FINDINGS: LUNGS/PLEURA: The lungs are clear. No pleural effusions or pneumothorax. No pulmonary edema. MEDIASTINUM: The mediastinal silhouette is within normal limits. CARDIAC: Mild cardiomegaly UPPER ABDOMEN: No significant abnormality. BONES: No acute abnormality. Left arthroplasty. LINES/TUBES/OTHER: AICD IMPRESSION: No evidence of acute cardiopulmonary disease.
--- NOTE | 2024-12-02 17:52 | RAD REPORT ---
EXAMINATION: CT HEAD WITHOUT CONTRAST CT CERVICAL SPINE WITHOUT CONTRAST CLINICAL INDICATION: Male, 84 years old. fall TECHNIQUE: Axial CT images from the skull base to the vertex without intravenous contrast. Axial CT i mages through the cervical spine were obtained without intravenous contrast. Sagittal and coronal reformatted images were created from the data set. Coronal and sagittal reformatted images were creat ed from the data set. One or more of the following dose reduction techniques were used: Automated exposure control, adjustment of the mA and/or kV according to patient size, and/or iterative reconstr uction. Unless otherwise specified, incidental findings do not require dedicated imaging follow-up. [id number]. COMPARISON: No prior exam. FINDINGS: Head: INTRACRANIAL: No acute intracranial hemorrhage. No hydrocephalus. No mass effect or midline shift. Mi ld chronic small vessel ischemic changes.Mild cerebral atrophy. VASCULATURE: No visualized abnormalities in the arteries or dural venous sinuses. SCALP/SKULL: No significant soft tissue or osseous abnormalities. SINUSES: The visualized paranasal sinuses and mastoid air cells are predominantly clear. Cervical spine: ALIGNMENT: The cervical spine has normal alignment without scoliosis or spondylolisthesis. BONE: Vertebral body heights are maintained. No aggressive osseous lesions. DEGENERATIVE CHANGES: None significant. SOFT TISSUE: No significant abnormalities in the soft tissue of the neck. The visualized lung apices are clear. IMPRESSION: No acute intracranial abnormality. No acute fracture or traumatic malalignment of the cervical spine.
--- NOTE | 2024-12-02 17:58 | RAD REPORT ---
EXAMINATION: CT ABDOMEN AND PELVIS WITHOUT CONTRAST CLINICAL INDICATION: Male, 84 years old.ABD PAIN TECHNIQUE: CT abdomen and pelvis was performed, without IV contrast, as per department protocol. Axia l, sagittal and coronal reconstructions were obtained. One or more of the following dose reduction techniques were used: Automated exposure control, adjustment of the mA and/or kV according to the pat ient size, and/or iterative reconstruction. Unless otherwise specified, incidental findings do not require dedicated imaging follow-up. [id number]. IV CONTRAST: Not administered. COMPARISON: None FINDINGS: The lack of intravenous contrast limits the sensitivity of this exam for evaluation of solid visceral organs, vascular structures, and retroperitoneum. LOWER CHEST: Dependent atelectasis. Moderate cardiomegaly. Multivessel coronary artery calcifications .Mild circumferential thickening of the distal esophagus which could reflect esophagitis. Aortic valve calcifications. UPPER GI: No significant abnormality. LIVER: No significant focal abnormality. GALLBLADDER/BILE DUCTS: Cholecystectomy. Mild extra-hepatic biliary ductal dilatation is likely relat ed to the post-cholecystectomy state. Consider correlating with LFT's.? PANCREAS: Atrophy, but otherwise unremarkable. Not well assessed without contrast. SPLEEN: Unremarkable. ADRENALS: No adrenal masses. KIDNEYS AND URETERS: No hydronephrosis.Low density and/or too small to characterize renal lesions whi ch are statistically benign.Nonobstructing renal calculi. Postoperative changes at the right kidney. ABDOMINAL AORTA AND OTHER VESSELS: Severe atherosclerotic changes. No aortic aneurysm. PERITONEUM: No abnormal free fluid. No free air. LYMPH NODES: No pathologic lymphadenopathy. ABDOMINAL WALL: Fat containing inguinal hernias. SMALL BOWEL/COLON: Small bowel has normal course and caliber. No colonic wall thickening or pericolon ic inflammatory changes. Moderate diverticulosis without diverticulitis. URINARY BLADDER: Circumferential thickening which may be secondary to chronic bladder outlet obstruct ion. REPRODUCTIVE ORGANS: Mild prostatomegaly. MUSCULOSKELETAL: Multilevel degenerative changes in the spine. No acute fracture. Minimal wedge compr ession deformity at L4 is favored chronic. Remote rib fractures. ADDITIONAL FINDINGS: None. IMPRESSION: No acute findings within the abdomen or pelvis.
--- NOTE | 2024-12-02 18:21 | EDPHYS ---
Physician Documentation [facility] Name: Guero Ernst Age: 84 yrs Sex: Male : 1940 Arrival Date: 12/02/2024 Time: 15:43 Bed 18 Private MD: ED Physician Joshua Chun HPI: 12/02 17:53 This 84 yrs old Male presents to ER via EMS with complaints of Fall Injury. ms3 17:53 84-year-old male presents emergency department for lower abdominal pain that rates a ms3 9/10. Patient notes he also fell the other night prior to developing the abdominal pain. He denies any alleviating or inciting factors. Historical: - Allergies: 15:54 No Known Allergies; me1 - PMHx: 15:54 Atrial Fib; Hyperlipidemia; Hypertension; me1 - PSHx: 15:54 bowel resection; knee; Shoulder; me1 - Immunization history:: Adult Immunizations up to date. - Infectious Disease History:: Denies. - Social history:: Smoking status: Patient denies any tobacco usage or history of. ROS: 17:53 Constitutional: Negative for fever, and chills. Cardiovascular: Negative for chest ms3 pain, and palpitations. Respiratory: Negative for shortness of breath, cough, wheezing, and pleuritic chest pain, 17:53 MS/Extremity: Negative for injury and deformity, Skin: Negative for injury, rash, and discoloration, 17:53 Abdomen/GI: Positive for abdominal pain, Exam: 17:53 Constitutional: This is a well developed, well nourished patient who is awake, alert, ms3 and in no acute distress. Cardiovascular: Regular rate and rhythm with a normal S1 and S2. No gallops, murmurs, or rubs. Normal PMI, no JVD. No pulse deficits. Respiratory: Lungs have equal breath sounds bilaterally, clear to auscultation and percussion. No rales, rhonchi or wheezes noted. No increased work of breathing, no retractions or nasal flaring. 17:53 ECG was reviewed by the Attending Physician. 17:53 Abdomen/GI: Inspection: abdomen appears normal, Bowel sounds: normal, Palpation: moderate abdominal tenderness, in the suprapubic area, right lower quadrant and left lower quadrant, Vital Signs: 15:48 BP 132 / 107; Pulse 106; Resp 19; Temp 98.2; Pulse Ox 95% ; Weight 92.99 kg; Height 6 me1 ft. 0 in. ; Pain 9/10; 16:30 BP 92 / 75; Pulse 113; Resp 18; Pulse Ox 95% on R/A; me1 17:00 BP 100 / 77; Pulse 98; Resp 18; Pulse Ox 95% ; me1 18:00 BP 117 / 85; Pulse 86; Resp 16; Pulse Ox 96% ; me1 19:00 BP 109 / 79; Pulse 96; Resp 18; Pulse Ox 93% ; me1 20:00 BP 114 / 91; Pulse 99; Resp 17; Pulse Ox 99% ; me1 21:00 BP 98 / 74; Pulse 116; Resp 18; Pulse Ox 94% ; ri1 12/03 07:00 BP 113 / 67; Pulse 81; Resp 16; Pulse Ox 95% ; bp 12/02 15:48 Body Mass Index 27.80 (92.99 kg, 182.88 cm) ri1 12/02 15:48 Pain Scale: [facility] MDM: 12/02 16:06 Medical Screening Exam initiated ms3 18:21 Differential diagnosis: closed head injury, contusion, fracture, sprain, strain, ms3 Electrolyte abnormality vs Bowel injury vs Diverticulitis vs Appendicitis vs UTI. Data reviewed: vital signs, nurses notes, lab test result(s), EKG, radiologic studies, and as a result, I will admit patient. Consideration of Admission/Observation Patient was admitted/placed on observation. Management of patient was discussed with the following: Hospitalist: Dr Gutiererz. I considered the following discharge prescriptions or medication management in the emergency department Medications were administered in the Emergency Department. See MAR. Independent interpretation of the following test(s) in the Emergency Department EKG: See my EKG interpretation above. Counseling: I had a detailed discussion with the patient and/or guardian regarding the historical points, exam findings, and any diagnostic results supporting the discharge/admit diagnosis, lab results, radiology results, the need for further work-up and treatment in the hospital. ED course: Discussed with patient necessity for admission. Patient's blood pressure improved with IV fluids.. 12/02 16:06 Order name: Blood Culture Adult (2) ms3 12/02 16:06 Order name: CBC with Diff; Complete Time: 17:18 ms3 12/02 16:06 Order name: CMP; Complete Time: 17:18 ms3 12/02 16:06 Order name: Lactate w/ 2H reflex if indic.; Complete Time: 17:18 ms3 12/02 16:06 Order name: Protime (+inr); Complete Time: 17:18 ms3 12/02 16:06 Order name: Ptt, Activated; Complete Time: 17:18 ms3 12/02 16:06 Order name: Urinalysis w/ reflexes ms3 12/02 16:07 Order name: Lipase; Complete Time: 17:18 ms3 12/02 19:45 Order name: Lactate w/ 2H reflex if indic. EDMS 12/02 19:45 Order name: Urinalysis w/ reflexes EDMS 12/02 19:45 Order name: CBC with Automated Diff EDMS 12/02 19:45 Order name: CBC with Automated Diff EDMS 12/02 19:45 Order name: Comprehensive Metabolic Panel EDMS 12/02 19:45 Order name: Comprehensive Metabolic Panel EDMS 12/02 19:45 Order name: Magnesium EDMS 12/02 19:45 Order name: Magnesium EDMS 12/02 19:45 Order name: Phosphorus EDMS 12/02 19:45 Order name: Phosphorus EDMS 12/02 16:06 Order name: Chest Single View XRAY; Complete Time: 17:18 ms3 12/02 16:07 Order name: CT Head C Spine; Complete Time: 17:53 ms3 12/02 17:19 Order name: Abdomen ; Complete Time: 18:09 EDMS 12/02 16:06 Order name: Accucheck; Complete Time: 16:39 ms3 12/02 16:06 Order name: Cardiac monitoring; Complete Time: 16:39 ms3 12/02 16:06 Order name: EKG - Nurse/Tech; Complete Time: 16:39 ms3 12/02 16:06 Order name: IV Saline Lock - Large Bore; Complete Time: 16:23 ms3 12/02 16:06 Order name: Labs collected and sent; Complete Time: 16:23 ms3 12/02 16:06 Order name: O2 Per Protocol; Complete Time: 16:23 ms3 12/02 16:06 Order name: O2 Sat Monitoring; Complete Time: 16:23 ms3 12/02 16:06 Order name: Vital Signs; Complete Time: 16:23 ms3 EC:53 Rate is 109 beats/min. Rhythm is irregularly irregular. Left axis deviation noted. QRS ms3 interval is normal. Clinical impression: Atrial Fibrillation and with PVCs. Interpreted by me. Reviewed by me. Administered Medications: 16:31 Drug: NS 0.9% IV (30 ml/kg) 30 ml/kg IV at bolus once; Sepsis Protocol; to be given as me1 a bolus over 90 minutes Route: IV; Rate: bolus; Site: left antecubital; 19:05 Follow up: Response: No adverse reaction; IV Status: Completed infusion; IV Intake: me1 2789ml Disposition Summary: 12/02/24 18:21 Hospitalization Ordered Notes: Hospitalization Status: Observation ms3 Provider: Massimo Gutierrez ms3 Condition: Stable ms3 Problem: new ms3 Symptoms: are unchanged ms3 Bed/Room Type: Standard ms3 Location: Telemetry/MedSurg (observation)(12/03/24 10:53) bd Room Assignment: [facility](12/03/24 10:53) bd Diagnosis - Hypotension, unspecified ms3 - Fall on same level, unspecified ms3 - Lower abdominal pain, unspecified ms3 - Acute kidney injury ms3 - Dehydration ms3 Forms: - Medication Reconciliation Form ms3 - SBAR form ms3 - Leadership Thank You Letter ms3 Critical care time excluding procedures: 18:22 Critical care time: Bedside Care: 35 minutes, Consultation: 5 minutes, Family ms3 Intervention: 5 minutes. Total time: 45 minutes Signatures: Dispatcher [employer] EDMS Krista Aquino Cindy, RN Joshua Wu DO DO ms3 Debra Cruz RN RN me1 Corrections: (The following items were deleted from the chart) 16:06 16:06 BLOOD CULTURE*+BA.LAB.BRZ ordered. EDMS EDMS 16:06 16:06 CBC+H.LAB.BRZ ordered. EDMS EDMS 16:06 16:06 COMPREHENSIVE METABOLIC PANEL+C.LAB.BRZ ordered. EDMS EDMS 16:06 16:06 LACTATE+C.LAB.BRZ ordered. EDMS EDMS 16:06 16:06 PROTIME (+INR)+COAG.LAB.BRZ ordered. EDMS EDMS 16:06 16:06 PTT, ACTIVATED+COAG.LAB.BRZ ordered. EDMS EDMS 16: 16:06 Urinalysis+U.LAB.BRZ ordered. EDMS EDMS 16: 16:07 Chest Single View+RAD.RAD.BRZ ordered. EDMS EDMS 16: 16:07 LIPASE+C.LAB.BRZ ordered. EDMS EDMS 16: 16:07 Abdomen Pelvis W Con+CT.RAD.BRZ ordered. EDMS EDMS 16: 16:07 Head C Spine MPR Wo Con+CT.RAD.BRZ ordered. EDMS EDMS 21:33 18:21 Telemetry/MedSurg (observation) ms3 cg 21: 18:21 ms3 cg 12/03 10:53 12/02 21:33 [facility] ER HOLD cg bd 12/03 10:53 12/02 21:33 ERHOLD- cg bd
--- NOTE | 2024-12-02 18:21 | ER ---
Nurse's Notes [facility] Name: Guero Ernst Age: 84 yrs Sex: Male : 1940 Arrival Date: 12/02/2024 Time: 15:43 Bed 18 Private MD: Diagnosis: Hypotension, unspecified;Fall on same level, unspecified;Lower abdominal pain, unspecified;Acute kidney injury;Dehydration Presentation: 12/02 15:48 Chief complaint: EMS states: toned out for multiple falls over the past 5 days, last me1 fall today. Denies hitting his head. + blood thinner for Afib. c/o abdominal pain LUQ, LLQ and RLQ, BGL 146. c/o constipation x 5 days. Coronavirus screen: Vaccine status: Patient reports receiving the 2nd dose of the covid vaccine. Ebola Screen: No symptoms or risks identified at this time. Initial Sepsis Screen: Does the patient meet any 2 criteria? HR > 90 bpm. Does the patient have a suspected source of infection? No. Patient's initial sepsis screen is negative. Risk Assessment: Do you want to hurt yourself or someone else? Patient reports no desire to harm self or others. Onset of symptoms was November 27, 2024. Care prior to arrival: Glucose check: 146. 15:48 Method Of Arrival: EMS: [place] [id number] 15:48 Acuity: ALLEN 3 me1 Triage Assessment: 15:54 General: Appears uncomfortable, well developed, well nourished, Behavior is calm, me1 cooperative, appropriate for age. Pain: Complains of pain in right upper quadrant, right lower quadrant and left lower quadrant Pain does not radiate. Pain currently is 9 out of 10 on a pain scale. Quality of pain is described as sharp, Pain began suddenly, Is continuous. EENT: No signs and/or symptoms were reported regarding the EENT system. Neuro: Level of Consciousness is awake, alert, obeys commands, Oriented to person, place, time, situation, Appropriate for age. Cardiovascular: Patient's skin is warm and dry. Respiratory: Airway is patent Respiratory effort is even, unlabored, Respiratory pattern is regular, symmetrical. GI:. : Reports pain in bilateral upper quadrant(s) lower quadrant(s). Derm: Skin is intact, is healthy with good turgor, Skin is pink, warm \T\ dry. Musculoskeletal: Reports pain in right upper quadrant, right lower quadrant and left lower quadrant. Injury Description: multiple falls over the past 5 days. Historical: - Allergies: 15:54 No Known Allergies; me1 - PMHx: 15:54 Atrial Fib; Hyperlipidemia; Hypertension; me1 - PSHx: 15:54 bowel resection; knee; Shoulder; me1 - Immunization history:: Adult Immunizations up to date. - Infectious Disease History:: Denies. - Social history:: Smoking status: Patient denies any tobacco usage or history of. Screenin:57 [facility] ED Fall Risk Assessment (Adult) History of falling in the last 3 months, me1 including since admission No falls in past 3 months (0 pts) Confusion or Disorientation No (0 pts) Intoxicated or Sedated No (0 pts) Impaired Gait Yes (1 pt) Mobility Assist Device Used Yes (1 pt) Altered Elimination No (0 pt) Score/Fall Risk Level 3 or more points = High Risk Maintained a safe environment, Hourly rounding (assess needs \T\ fall precautionary measures) done, Used ambulatory aids as needed (educated on \T\ assisted with). 15:57 Abuse screen: Denies threats or abuse. Nutritional screening: No deficits noted. me1 Tuberculosis screening: No symptoms or risk factors identified. Assessment: 15:57 General: See triage assessment. dc1 12/03 07:00 Reassessment: [employer] OFFLINE, SEE [employer] FOR NOW. 84YO WM P/W MX FALLS. bp Vital Signs: 12/02 15:48 BP 132 / 107; Pulse 106; Resp 19; Temp 98.2; Pulse Ox 95% ; Weight 92.99 kg; Height 6 me1 ft. 0 in. ; Pain 9/10; 16:30 BP 92 / 75; Pulse 113; Resp 18; Pulse Ox 95% on R/A; me1 17:00 BP 100 / 77; Pulse 98; Resp 18; Pulse Ox 95% ; me1 18:00 BP 117 / 85; Pulse 86; Resp 16; Pulse Ox 96% ; me1 19:00 BP 109 / 79; Pulse 96; Resp 18; Pulse Ox 93% ; me1 20:00 BP 114 / 91; Pulse 99; Resp 17; Pulse Ox 99% ; me1 21:00 BP 98 / 74; Pulse 116; Resp 18; Pulse Ox 94% ; me1 12/03 07:00 BP 113 / 67; Pulse 81; Resp 16; Pulse Ox 95% ; bp 12/02 15:48 Body Mass Index 27.80 (92.99 kg, 182.88 cm) me1 12/02 15:48 Pain Scale: Adult [facility] ED Course: 12/02 15:48 Patient arrived in ED. me1 15:54 Triage completed. me1 15:54 Arm band placed on Patient placed in an exam room. me1 15:57 Patient has correct armband on for positive identification. Bed in low position. Call [facility] light in reach. Side rails up X2. Provided Education on: POC. Verbalized understanding.. Client placed on continuous cardiac and pulse oximetry monitoring. NIBP monitoring applied. quality assurance monitor on. Pulse ox on. NIBP on. 15:57 No provider procedures requiring assistance completed. me1 16:00 Joshua Chun DO is Attending Physician. ms3 16:01 Debra Cruz, RN is Primary Nurse. me1 16:20 Initial lab(s) drawn, by dc, sent to lab. First set of blood cultures drawn by dc. me1 16:23 Inserted saline lock: 20 gauge in left antecubital area, using aseptic technique. me1 16:24 Blood Culture Adult (2) Sent. me1 16:24 CBC with Diff Sent. me1 16:24 CMP Sent. me1 16:24 Lactate w/ 2H reflex if indic. Sent. me1 16:24 Protime (+inr) Sent. me1 16:24 Ptt, Activated Sent. me1 16:34 Second set of blood cultures drawn by dc. me1 16:37 Radiology exam delayed due to lab results not completed at this time. (BUN/Creatinine) nj IV insertion attempt and/or patient not having appropriate IV at this time. 16:39 Lipase Sent. me1 16:41 Chest Single View XRAY In Process Unspecified. EDMS 17:40 CT Head C Spine In Process Unspecified. EDMS 17:41 Abdomen In Process Unspecified. EDMS 18:20 Massimo Gutierrez MD is Hospitalizing Provider. ms3 19:05 Blood Culture Adult (2) Sent. me1 21:58 Patient admitted, IV remains in place. me1 23:50 Urinalysis w/ reflexes Sent. dc1 12/03 07:05 Primary Nurse role handed off by Debra Cruz, RN 07:05 Fortunato Taylor, RN is Primary Nurse. bp Administered Medications: 12/02 16:31 Drug: NS 0.9% IV (30 ml/kg) 30 ml/kg IV at bolus once; Sepsis Protocol; to be given as me1 a bolus over 90 minutes Route: IV; Rate: bolus; Site: left antecubital; 19:05 Follow up: Response: No adverse reaction; IV Status: Completed infusion; IV Intake: me1 2789ml Medication: 15:57 VIS not applicable for this client. me1 Intake: 19:05 IV: 2789ml; Total: 2789ml. me1 Outcome: 18:21 Decision to Hospitalize by Provider. ms3 21:58 Admitted to ER Hold. Please see [facility] for further documentation. me1 21:58 Condition: stable 21:58 Instructed on the need for admit, 12/03 11:52 Patient left the ED. 6 Signatures: Dispatcher [employer] EDNV Jose Apodaca Brian, RN RN Joshua Chun DO DO ms3 Justyna Johnson 6 Debra Cruz, RN RN dc1
[2024-12-02] MEDS ORDERED: ONDANSETRON 4 MG/2 ML VIAL IV PRN (19:40)
[2024-12-02] MEDS ORDERED: ACETAMINOPHEN 325 MG TABLET PO PRN (19:40)
--- NOTE | 2024-12-02 19:40 | P.HP ---
Certification for Inpatient Patient admitted to: Inpatient With expected LOS: >2 Midnights Practitioner: I am a practitioner with admitting privileges, knowledge of patient current condition, hospital course, and medical plan of care. Services: Services provided to patient in accordance with Admission requirements found in Title 42 Section 412.3 of the Code of Federal Regulations Patient History Date of Service: 12/02/24 Reason for admission: Fall , Abdominal Pain History of Present Illness: 84 yrs old Male with past medical history of hypertension, hyperlipidemia, atrial fibrillation who was brought to ER with fall. Patient had a mechanical fall 2 days ago and started having abdominal pain which has been progressively getting worse and was brought to ER. Denies any syncope No fever or chills. Denies any chest pain or shortness of breath. Denies any nausea vomiting or diarrhea. Patient was assessed in the ER and is admitted for further management of abdominal pain and acute kidney injury Allergies No Known Allergies Allergy (Verified 02/08/18 00:04) Home medications list reviewed: Yes Home Medications: Atorvastatin Calcium 80 mg PO DAILY 04/25/12 Carvedilol 6.25 mg PO BID 04/26/12 Rivaroxaban [Xarelto*] 20 mg PO DAILY 02/08/18 Sacubitril/Valsartan [Entresto 97 mg-103 mg Tablet] 1 tab PO BID 07/05/22 Diphenhydramine [Benadryl*] 30 ml PO DAILY 07/07/22 Amox/Clavulanate [Augmentin 875-125 Tab*] 875 mg PO BID #20 tab 07/11/22 Hydrocodone 10/APAP 325 [[place] 10/325] 1 tab PO Q6H PRN #30 tab 07/11/22 Smz./Tmp. [Bactrim Ds 800 MG/160 MG*] 1 tab PO BID #20 tab 07/11/22 carvediloL [Coreg*] 6.25 mg PO BIDWM #60 tab 07/11/22 - Past Medical/Surgical History Diabetic: No Past Medical History: Reviewed- Non-Contributory -: A-FIB -: HTN -: HDL Past Surgical History: Reviewed- Non-Contributory -: PVI -: shoulder surgery -: cholecystectomy - Social History Smoking Status: Never smoker Alcohol use: Yes CD- Drugs: No Caffeine use: Yes Review of Systems 10-point ROS is otherwise unremarkable Physical Examination - Vital Signs Temperature: 97.2 F Blood Pressure: 102/67 Pulse: 82 Respirations: 18 Pulse Ox (%): 93 - Physical Exam General: Alert, Mild distress HEENT: Atraumatic, Normocephalic Neck: Supple, No Thyromegaly Respiratory: Clear to auscultation bilaterally, Normal air movement Cardiovascular: Regular rate/rhythm, Normal S1 S2 Capillary refill: <2 Seconds Gastrointestinal: W/out hepatosplenomegaly, Tenderness Musculoskeletal: No clubbing, No swelling Integumentary: No rashes Neurological: Normal speech, Normal strength at 5/5 x4 extr Lymphatics: No axilla or inguinal lymphadenopathy - Studies Laboratory Data (last 24 hrs) 12/02/24 12/02/24 12/02/24 16:20 16:20 16:20 WBC 6.10 Hgb 16.0 Hct 46.1 Plt Count 173 PT 12.5 INR 1.10 APTT 29.2 Sodium 136 Potassium 4.2 BUN 18 Creatinine 1.85 H Glucose 130 H Total Bilirubin 0.6 AST 71 H ALT 46 Alkaline Phosphatase 105 Lipase 21 Assessment and Plan - Plan Mechanical fall Denies any syncope Monitor closely CT showed no acute changes Acute kidney injury IV hydration Electrolytes monitor and replace accordingly Monitor closely on associate sales renal parameters Hypertension Antihypertensives titrated Continue home medications and titrate as needed Hyperlipidemia Continue statin Atrial fibrillation Continue home medications and titrate as needed Cystitis CT suggestive of possible cystitis Will start on IV antibiotic Will get cultures Change antibiotic as per sensitivity GI/DVT prophylaxis Advanced directive full code Discharge Plan: Home Plan to discharge in: 48 Hours - Advance Directives Does patient have a Living Will: No Does patient have a Durable POA for Healthcare: No - Code Status/Comfort Care Code Status: Full Code Time Spent Managing Pts Care (In Minutes): 48
[2024-12-02 21:58] VITALS: BMI 27.8
[2024-12-03 00:28] LABS: Specific Gravity 1.019 (1.005-1.030); Sqamous Epithelial <5 /HPF (None Seen); Urine Bacteria None Seen /HPF (<20); Urine Bilirubin NEGATIVE (Negative); Urine Blood Negative (Negative); Urine Clarity Extremely Turbid (Clear); Urine Color Yellow (Yellow); Urine Culture Reflex Order NOT NEEDED; Urine Glucose NEGATIVE (Negative); Urine Ketones 1+ (Negative); Urine Microscopic Reflex YN ORDER UMIC; Urine Mucus Slight /HPF (None Seen); Urine Nitrite NEGATIVE (Negative); Urine Protein 1+ (Negative); Urine RBC <5 /HPF (None Seen); Urine Urobilinogen 1+ (Normal); Urine WBC <5 /HPF (<5)
[2024-12-03] MEDS: PIPER TAZO 3.375 GM in NA CHLORIDE 0.9% 100 ML IV SCH (01:00)
[2024-12-03] MEDS ORDERED: MORPHINE 2 MG/ML SYR ONE (01:08)
[2024-12-03] MEDS ORDERED: PIPERACIL/TAZO 3.375 GM VIAL IV ONE ×2 (01:09→09:22)
[2024-12-03] MEDS ORDERED: NA CHLORIDE 0.9% 1,000 ML ONE (01:09)
[2024-12-03] MEDS ORDERED: NA CHLORIDE 0.9% 100 ML ONE (01:09)
[2024-12-03] MEDS: MORPHINE 2 MG/ML SYR IV PRN (01:24)
[2024-12-03] MEDS: NA CHLORIDE 0.9% 1,000 ML IV SCH (01:25)
[2024-12-03 05:28] LABS: Absolute Monocytes 0.4 K/uL (0.1-1.3); Absolute Neutrophil 3.7 K/uL (1.8-8.0); Basophils % 0.5 % (0-1.3); Eosinophils % 0.7 % (0-4.4); Hematocrit 43.1 % (39.6-49.0); Hemoglobin 14.6 g/dL (13.6-17.9); Lymphocytes % 18.8 % (15.3-44.8); MCH 31.5 pg (27.0-35.0); MCV 92.7 fL (80-100); MPV 8.8 fL (7.6-11.3); Monocytes % 8.7 % (3.3-12.3); Neutrophils % 71.3 % (41.7-73.7); Platelets 156 thou/uL (152-406); RBC Red Blood Cell Count 4.65 M/uL (4.33-5.43); Red Cell Distribution Width 14.6 % (12.1-15.2)
[2024-12-03 05:43] LABS: Albumin 2.7 g/dL (3.4-5.0); Albumin/Globulin Ratio 0.8 (1.1-1.8); Anion Gap 11.6 mEq/L (5.0-15.0); Bilirubin Total 0.6 mg/dL (0.2-1.0); Globulin 3.2 g/dL (2.3-3.5); Magnesium 1.8 mg/dL (1.6-2.4); Phosphorus 2.9 mg/dL (2.5-4.9); Potassium 3.6 mEq/L (3.5-5.1); Protein, Total 5.9 g/dL (6.4-8.2)
[2024-12-03] MEDS: AZITHROMYCIN IV 500 MG in NA CHLORIDE 0.9% 250 ML IVPB SCH (09:00)
[2024-12-03] MEDS ORDERED: AZITHROMYCIN 500 MG INJ IVPB ONE (09:22)
[2024-12-03] MEDS ORDERED: NA CHLORIDE 0.9% 250 ML ONE (09:22)
[2024-12-03] MEDS: HYDROCODONE/APAP 5/325 MG TAB PO PRN (12:13)
--- NOTE | 2024-12-03 13:12 | P.PN ---
Date of Service: 12/03/24 Subjective: feeling better still ongoing with cough, productive with white-yellow sputum RUQ pain and lower abdominal pain - improving ROS: 10 point ROS as noted above, otherwise negative Physical Exam: GEN: Alert, oriented, appears fatigued CV: Regular rate and rhythm, no edema Pulm: Nonlabored respirations on room air, diminished at bases bilaterally, +cough ABD: soft, diffuse lower abdominal tenderness, mild RUQ/epigastric tenderness, nondistended Integumentary: No rashes Neuro: Normal speech, normal affect Problem List: Mechanical Fall JOSEFINA epigastric pain - possible esophagitis/GERD Possible acute cystitis Abdominal Pain Chronic A-fib on anticoagulation Hypertension Hyperlipidemia Mechanical Fall JOSEFINA Possible acute cystitis Abdominal Pain presents with diffuse lower abdominal pain. +constipation x5 days. reports multiple falls over the last 5 days. Most recently shortly before admission. Denies LOC or head injury. CT abdomen/pelvis (12/02): Mild circumferential thickening of the distal esophagus. Circumferential bladder thickening which may be secondary to chronic bladder outlet obstruction. Mild prostatomegaly. MSK: Remote rib fractures. Multilevel degenerative changes in the spine. No acute fracture. Minimal wedge compression deformity at L4 is favored chronic. CT head/spine negative. CXR negative. Continue empiric azithromycin / zosyn (12/02-) follow blood cultures. ?urine cx. Creatinine improved with IV fluids Continue to monitor renal function continue IV fluids pain control reports no BM in ~5-6 days add stool softener add miralax titrate up tomorrow if no BM Chronic A-fib on anticoagulation Hypertension Hyperlipidemia confirm home meds, restart as appropriate VTE: confirm home xarelto dose Code: Full Dispo: Home Time Spent Managing Pts Care (In Minutes): 55
[2024-12-03] MEDS: POLYETHYL GLY 3350 17 GM/DOSE PO ONE (17:55)
[2024-12-03] MEDS: DOCUSATE NA 100 MG CAP PO SCH (21:18)
[2024-12-04 04:54] LABS: Absolute Eosinophils 0.1 K/uL (0-0.5); Absolute Lymphocytes (CBC) 1.1 K/uL (0.7-4.9); Absolute Monocytes 0.5 K/uL (0.1-1.3); Absolute Neutrophil 2.9 K/uL (1.8-8.0); Basophils % 0.4 % (0-1.3); Eosinophils % 1.7 % (0-4.4); Hematocrit 40.6 % (39.6-49.0); Lymphocytes % 23.4 % (15.3-44.8); MCH 31.7 pg (27.0-35.0); MCHC 34.6 g/dL (32.0-36.0); MCV 91.6 fL (80-100); MPV 8.8 fL (7.6-11.3); Monocytes % 11.7 % (3.3-12.3); Neutrophils % 62.8 % (41.7-73.7); Nucleated Red Blood Cells % 0.1 % (0-0); Platelets 152 thou/uL (152-406); RBC Red Blood Cell Count 4.43 M/uL (4.33-5.43); Red Cell Distribution Width 14.4 % (12.1-15.2)
[2024-12-04 05:04] LABS: Albumin 2.4 g/dL (3.4-5.0); Albumin/Globulin Ratio 0.8 (1.1-1.8); Anion Gap 11.4 mEq/L (5.0-15.0); Bilirubin Total 0.8 mg/dL (0.2-1.0); Globulin 3.1 g/dL (2.3-3.5); Magnesium 1.5 mg/dL (1.6-2.4); Potassium 3.4 mEq/L (3.5-5.1); Protein, Total 5.5 g/dL (6.4-8.2)
[2024-12-04] MEDS: Magnesium Sulfate 2gm IVPB 2 G/50 ML BAG IV ONE (05:47)
[2024-12-04] MEDS: POTASSIUM CL SA 10 MEQ TAB PO ONE (08:21)
[2024-12-04] MEDS: FAMOTIDINE 20 MG TAB PO SCH (08:21)
--- NOTE | 2024-12-04 10:34 | P.PN ---
Date of Service: 12/04/24 Subjective: denies any new or worsening problems; but not much better either abdominal pain ongoing coughing is improving feels ~same as yesterday no BM yet cough improving ROS: 10 point ROS as noted above, otherwise negative Physical Exam: GEN: Alert, oriented, appears fatigued CV: Regular rate and rhythm, no edema Pulm: Non-labored respirations on room air, diminished at bases bilaterally ABD: soft, diffuse lower abdominal tenderness, mild RUQ/epigastric tenderness, nondistended Neuro: Normal speech, normal affect Problem List: Mechanical Fall JOSEFINA, resolved epigastric pain - possible esophagitis/GERD Possible acute cystitis Constipation Chronic A-fib on anticoagulation Hypertension Hyperlipidemia Mechanical Fall JOSEFINA, resolved epigastric pain - possible esophagitis/GERD Possible acute cystitis presents with diffuse lower abdominal pain. +constipation x5 days. reports multiple falls over the last 5 days. Most recently shortly before admission. Denies LOC or head injury. CT abdomen/pelvis (12/02): Mild circumferential thickening of the distal esophagus. Circumferential bladder thickening which may be secondary to chronic bladder outlet obstruction. Mild prostatomegaly. MSK: Remote rib fractures. Multilevel degenerative changes in the spine. No acute fracture. Minimal wedge compression deformity at L4 is favored chronic. Last EGD was several years ago per patient. CT head/spine negative. CXR negative. Continue empiric zosyn (12/02-) dc azithro given h/o afib follow blood cultures Creatinine improved with IV fluids Continue to monitor renal function continue IV fluids pain control bladder scan, check PVR this morning Constipation may be contributing to discomfort reports no BM in ~5-6 days. continue colace BID PRN glycolax no BM yet Dulcolax suppository x1 ordered Chronic A-fib on anticoagulation Hypertension Hyperlipidemia confirm home meds, restart as appropriate VTE: confirm home Xarelto dose Code: Full Dispo: Home Time Spent Managing Pts Care (In Minutes): 55
[2024-12-04] MEDS: BISACODYL 10 MG RECTAL SUPP PR ONE (12:29)
[2024-12-04] MEDS: POLYETHYL GLY 3350 17 GM/DOSE PO PRN (19:57)
[2024-12-04] MEDS: TAMSULOSIN 0.4 MG SR CAP PO SCH (22:07)
[2024-12-04] MEDS: GUAIFENESIN/DM 5 ML UCUP PO PRN (22:11)
[2024-12-05 06:00] LABS: Absolute Eosinophils 0.2 K/uL (0-0.5); Absolute Lymphocytes (CBC) 0.9 K/uL (0.7-4.9); Absolute Monocytes 0.5 K/uL (0.1-1.3); Absolute Neutrophil 2.9 K/uL (1.8-8.0); Basophils % 0.5 % (0-1.3); Eosinophils % 4.2 % (0-4.4); Hematocrit 40.5 % (39.6-49.0); Hemoglobin 14.1 g/dL (13.6-17.9); MCH 31.9 pg (27.0-35.0); MCHC 34.8 g/dL (32.0-36.0); MCV 91.7 fL (80-100); MPV 8.1 fL (7.6-11.3); Monocytes % 10.2 % (3.3-12.3); Neutrophils % 65.1 % (41.7-73.7); Nucleated Red Blood Cells % 0.1 % (0-0); Platelets 170 thou/uL (152-406); RBC Red Blood Cell Count 4.41 M/uL (4.33-5.43); Red Cell Distribution Width 14.5 % (12.1-15.2)
[2024-12-05 06:16] LABS: Anion Gap 7.5 mEq/L (5.0-15.0); Magnesium 1.7 mg/dL (1.6-2.4); Potassium 3.5 mEq/L (3.5-5.1)
[2024-12-05] MEDS: RIVAROXABAN 10 MG TABLET PO SCH (09:44)
[2024-12-05] MEDS: POTASSIUM CL SA 10 MEQ TAB PO ONE (09:44)
[2024-12-05] MEDS: MAGNESIUM SULFATE 1 gm IVPB 1 GM/100 ML BAG IV ONE (09:45)
--- NOTE | 2024-12-05 12:08 | RAD REPORT ---
EXAM: XR Abdomen 1 View (KUB) HISTORY: [facility] abd pain, constipation/ileus COMPARISON: 05/02/2012 radiographs. 12/02/2024 CT abdomen and pelvis FINDINGS: Single view of the abdomen shows a nonspecific, nonobstructive bowel gas pattern. No suspi cious calcifications are seen. The bones are unremarkable. IMPRESSION: Unremarkable exam
[2024-12-05] MEDS: BISACODYL 10 MG RECTAL SUPP PR ONE (14:20)
[2024-12-05] MEDS: LACTULOSE 20 GM/30 ML UCUP PO ONE (14:20)
--- NOTE | 2024-12-05 16:58 | EKG ---
Test Date: 2024-12-02 Test Time: 16:36:36 Seafood Manager: MEASUREMENT RESULTS: Intervals: Rate: 109 MA: QRSD: 88 QT: 326 QTc: 439 [place]: P: MA: QRS: -37 T: -4 INTERPRETIVE STATEMENTS: Atrial fibrillation with premature ventricular or aberrantly conducted complexes Left axis deviation Anterior infarct, age undetermined Abnormal ECG Compared to ECG 07/05/2022 07:54:12 Ventricular premature complex(es) now present Left-axis deviation now present Myocardial infarct finding still present Electronically Signed On 12-05-24 16:48:05 [employer] by Bob Ordoñez
--- NOTE | 2024-12-05 21:21 | P.PN ---
Date of Service: 12/05/24 Subjective: feeling slightly better, but not much no BM still feels a little bloated pain seems a bit better ROS: 10 point ROS as noted above, otherwise negative Physical Exam: GEN: Alert, oriented, NAD CV: Regular rate and rhythm, no edema Pulm: Non-labored respirations on room air, diminished at bases bilaterally ABD: soft, diffuse mild lower abdominal tenderness, mild RUQ/epigastric tenderness, nondistended Neuro: Normal speech, normal affect Problem List: Mechanical Fall JOSEFINA, resolved epigastric pain - possible esophagitis/GERD Possible acute cystitis Constipation Chronic A-fib on anticoagulation Hypertension Hyperlipidemia Mechanical Fall JOSEFINA, resolved epigastric pain - possible esophagitis/GERD Possible acute cystitis presents with diffuse lower abdominal pain. +constipation x5 days. reports multiple falls over the last 5 days. Most recently shortly before admission. Denies LOC or head injury. CT abdomen/pelvis (12/02): Mild circumferential thickening of the distal esophagus. Circumferential bladder thickening which may be secondary to chronic bladder outlet obstruction. Mild prostatomegaly. MSK: Remote rib fractures. Multilevel degenerative changes in the spine. No acute fracture. Minimal wedge compression deformity at L4 is favored chronic. Last EGD was several years ago per patient. CT head/spine negative. CXR negative. Continue empiric zosyn (12/02-) dc azithro given h/o afib follow blood cultures Creatinine improved with IV fluids dc IVF pain control bladder scan/ PVR ordered 12/04, unable to find results, will discuss with nursing staff r/o urinary retention as source of discomfort KUB 12/05 ordered Constipation likely contributing to discomfort reports no BM in ~5-6 days. continue colace BID PRN glycolax no BM yet Dulcolax suppository x1 ordered again - pt seems confused - states he did not receive it yesterday lactulose x1 12/05 Chronic A-fib on anticoagulation Hypertension Hyperlipidemia confirm home meds, restart as appropriate VTE: home xarelto Code: Full Dispo: Home, ~24-48hrs Time Spent Managing Pts Care (In Minutes): 55
[2024-12-06 04:55] LABS: Hematocrit 40.2 % (39.6-49.0); Hemoglobin 13.6 g/dL (13.6-17.9); MCH 31.1 pg (27.0-35.0); MCHC 33.9 g/dL (32.0-36.0); MCV 91.7 fL (80-100); MPV 8.3 fL (7.6-11.3); Platelets 193 thou/uL (152-406); RBC Red Blood Cell Count 4.38 M/uL (4.33-5.43); Red Cell Distribution Width 14.3 % (12.1-15.2)
[2024-12-06 05:19] LABS: Anion Gap 9.6 mEq/L (5.0-15.0); Magnesium 1.7 mg/dL (1.6-2.4); Potassium 3.6 mEq/L (3.5-5.1)
[2024-12-06] MEDS: MAGNESIUM SULFATE 1 gm IVPB 1 GM/100 ML BAG IV ONE (08:56)
[2024-12-06] MEDS: POTASSIUM CL SA 10 MEQ TAB PO ONE (08:56)
--- NOTE | 2024-12-06 09:22 | P.PN ---
Date of Service: 12/06/24 Subjective: had 2 large BM yesterday reports coughing up some slightly blood-tinged sputum continues with pain, mostly around lower R ribs. Worsened with coughing Lower abdominal pains improving ROS: 10 point ROS as noted above, otherwise negative Physical Exam: GEN: Alert, oriented, NAD CV: Regular rate and rhythm, no edema Pulm: Non-labored respirations on room air, diminished at bases bilaterally ABD: soft, mild tenderness over lower R ribs Neuro: Normal speech, normal affect Problem List: Mechanical Fall JOSEFINA, resolved epigastric pain - possible esophagitis/GERD Possible acute cystitis Constipation, resolved Chronic A-fib on anticoagulation Hypertension Hyperlipidemia Mechanical Fall JOSEFINA, resolved epigastric pain - possible esophagitis/GERD Possible acute cystitis presents with diffuse lower abdominal pain. +constipation x5 days. reports multiple falls over the last 5 days. Most recently shortly before admission. Denies LOC or head injury. CT abdomen/pelvis (12/02): Mild circumferential thickening of the distal esophagus. Circumferential bladder thickening which may be secondary to chronic bladder outlet obstruction. Mild prostatomegaly. MSK: Remote rib fractures. Multilevel degenerative changes in the spine. No acute fracture. Minimal wedge compression deformity at L4 is favored chronic. Last EGD was several years ago per patient. CT head/spine negative. CXR negative. Continue empiric zosyn (12/02-) dc azithro given h/o afib follow blood cultures Creatinine improved with IV fluids; dc IVF pain control bladder scan/ PVR ordered 12/04, unable to find results, will discuss with nursing staff r/o urinary retention as source of discomfort KUB (12/05): unremarkable. CT chest/abd/pelvis w/contrast ordered to further eval given persistent pain. PT consult Constipation, resolved likely contributing to discomfort continue colace BID PRN glycolax lactulose x1 12/05 had 2 large BM yesterday Chronic A-fib on anticoagulation Hypertension Hyperlipidemia confirm home meds, restart as appropriate VTE: home xarelto Code: Full Dispo: Home, ~24-48hrs Time Spent Managing Pts Care (In Minutes): 55
--- NOTE | 2024-12-06 11:39 | RAD REPORT ---
EXAM: Chest Abdomen Pelvis W Cont CLINICAL INDICATION: Chest and abdominal pain TECHNIQUE: CT chest, abdomen and pelvis was performed, with 100 cc Isovue-300 IV contrast, as per de partment protocol. Axial, sagittal and coronal reconstructions were obtained. One or more of the following dose reduction techniques were used: Automated exposure control, adjustment of the mA and/o r kV according to the patient size, and/or iterative reconstruction. Unless otherwise specified, incidental findings do not require dedicated imaging follow-up. [id number]. Oral contrast not given. This limits evaluation of the bowel. COMPARISON: December 02, [address] chest June 2024 FINDINGS: Development of mild to moderate patchy groundglass opacities scattered throughout the lungs. Mild bilateral hilar and mediastinal lymphadenopathy has progressed since the prior exam. No pleural effusion.. No pericardial effusion Liver, spleen, pancreas and adrenals unremarkable. Bilateral renal cysts. Tiny nonobstructing renal calculi. Renal cortical thinning perhaps secondary to prior inflammation or ischemia. Prostate gland moderately to markedly enlarged. Lateral wall thickening perhaps secondary to chronic outlet obstruction. Small right inguinal hernia No evidence of diverticulitis. Normal appendix. IMPRESSION: Mild mediastinal and hilar lymphadenopathy could be reactive. Neoplasm can also have this appearance. It is recommended that the patient either have a follow-up CT in 3 months to assess stability. Alternatively a pet scan could be obtained. Mild to moderate groundglass opacities within the lungs probably inflammatory. Pneumonia is a another consideration. Tiny nonobstructing renal calculi
[2024-12-06 13:34] VITALS: O2SAT 96
[2024-12-07 05:19] LABS: Absolute Eosinophils 0.6 K/uL (0-0.5); Absolute Lymphocytes (CBC) 0.9 K/uL (0.7-4.9); Absolute Monocytes 0.5 K/uL (0.1-1.3); Absolute Neutrophil 4.2 K/uL (1.8-8.0); Basophils % 0.4 % (0-1.3); Eosinophils % 9.4 % (0-4.4); Hematocrit 40.3 % (39.6-49.0); Hemoglobin 13.6 g/dL (13.6-17.9); Lymphocytes % 15.3 % (15.3-44.8); MCH 31.2 pg (27.0-35.0); MCHC 33.8 g/dL (32.0-36.0); MCV 92.2 fL (80-100); MPV 8.1 fL (7.6-11.3); Monocytes % 7.4 % (3.3-12.3); Neutrophils % 67.5 % (41.7-73.7); Nucleated Red Blood Cells % 0.1 % (0-0); Platelets 243 thou/uL (152-406); RBC Red Blood Cell Count 4.37 M/uL (4.33-5.43); Red Cell Distribution Width 14.6 % (12.1-15.2)
[2024-12-07 05:31] LABS: Albumin 2.3 g/dL (3.4-5.0); Albumin/Globulin Ratio 0.7 (1.1-1.8); Anion Gap 6.5 mEq/L (5.0-15.0); Bilirubin Total 1.1 mg/dL (0.2-1.0); C-Reactive Protein 37.3 mg/L (<3.00); Globulin 3.1 g/dL (2.3-3.5); Potassium 3.5 mEq/L (3.5-5.1); Protein, Total 5.4 g/dL (6.4-8.2)
--- NOTE | 2024-12-07 09:59 | P.PN ---
Date of Service: 12/07/24 Subjective: Feeling about the same, he does report some improvement in his cough, no longer having abdominal pain But still feels very weak and rundown, occasional right lower chest/rib pain with coughing worked with PT, patient independent with ambulating/transfers/bed mobility. Intermittently on oxygen supplementation afebrile ROS: 10 point ROS as noted above, otherwise negative Physical Exam: GEN: Alert, oriented, NAD CV: Regular rate and rhythm, no edema Pulm: Non-labored respirations on room air, diminished at bases bilaterally, mild crackles at bases ABD: soft, mild tenderness over lower R ribs Neuro: Normal speech, normal affect Problem List: Acute COVID-pneumonia Mechanical Fall epigastric pain - possible esophagitis/GERD Hilar/mediastinal lymphadenopathy JOSEFINA, resolved Constipation, resolved Chronic A-fib on anticoagulation Hypertension Hyperlipidemia Acute COVID-pneumonia Mechanical Fall Epigastric pain - possible esophagitis/GERD Hilar/mediastinal lymphadenopathy presents with diffuse lower abdominal pain. +constipation x5 days. States he "just does not feel well", not elaborating today on much specific symptoms, ongoing cough reports multiple falls over the last 5 days. Most recently shortly before admission. Denies LOC or head injury. Hypotension CT abdomen/pelvis (12/02): Mild circumferential thickening of the distal esophagus. Circumferential bladder thickening which may be secondary to chronic bladder outlet obstruction. Mild prostatomegaly. MSK: Remote rib fractures. Multilevel degenerative changes in the spine. No acute fracture. Minimal wedge compression deformity at L4 is favored chronic. Last EGD was several years ago per patient. CT head/spine negative. CXR negative. Creatinine improved with IV fluids; dc IVF pain control CT chest/abd/pelvis w/contrast (12/06): mild-moderate groundglass opacities within the lungs. +mild mediastinal and hilar lymphadenopathy. will check covid/flu this morning, given symptoms, and CT findings Dr. Ronquillo, pulm consulted Continue empiric zosyn (12/02-) blood cx (12/02): NGTD CRP elevated - 37.3, pro-brandon normal. JOSEFINA, resolved resolved with IV hydration Constipation, resolved likely contributing to discomfort continue colace BID PRN glycolax lactulose x1 12/05 had 2 large BM 12/05 Chronic A-fib on anticoagulation Hypertension Hyperlipidemia confirm home meds, restart as appropriate VTE: home xarelto Code: Full Dispo: Home, ~48hrs Time Spent Managing Pts Care (In Minutes): 55
[2024-12-07 13:07] LABS: Influenza A Ag Negative; Influenza B Ag Negative
[2024-12-07 13:09] LABS: SARS-CoV-2 Antigen Rapid Res Positive (Negative)
[2024-12-07] MEDS: TRAMADOL HCL 50 MG TAB PO PRN (21:07)
[2024-12-07] MEDS: POTASSIUM CL SA 10 MEQ TAB PO ONE (21:07)
[2024-12-08] MEDS: TRAZODONE 50 MG TABLET PO PRN (00:52)
[2024-12-08] MEDS: METOPROLOL TAR 25 MG TAB PO SCH (00:52)
[2024-12-08 06:45] LABS: Hematocrit 39.4 % (39.6-49.0); Hemoglobin 13.3 g/dL (13.6-17.9); MCH 31.4 pg (27.0-35.0); MCHC 33.7 g/dL (32.0-36.0); MCV 93.1 fL (80-100); MPV 7.6 fL (7.6-11.3); Platelets 281 thou/uL (152-406); RBC Red Blood Cell Count 4.24 M/uL (4.33-5.43); Red Cell Distribution Width 14.3 % (12.1-15.2)
[2024-12-08 07:01] LABS: Albumin 2.4 g/dL (3.4-5.0); Albumin/Globulin Ratio 0.7 (1.1-1.8); Anion Gap 5.8 mEq/L (5.0-15.0); Bilirubin Total 1.1 mg/dL (0.2-1.0); Globulin 3.3 g/dL (2.3-3.5); Magnesium 1.8 mg/dL (1.6-2.4); Potassium 3.8 mEq/L (3.5-5.1); Protein, Total 5.7 g/dL (6.4-8.2)
--- NOTE | 2024-12-08 10:53 | P.PN ---
Date of Service: 12/08/24 Subjective: in a-fib; had episode of RVR with HR in 150s this morning now rate controlled in 60-70s tested positive for covid yesterday afebrile ROS: 10 point ROS as noted above, otherwise negative Physical Exam: GEN: Alert, oriented, NAD CV: Regular rate and rhythm, no edema Pulm: Non-labored respirations on room air NC, diminished at bases bilaterally ABD: soft, mild tenderness over lower R ribs Neuro: Normal speech, normal affect Problem List: Acute COVID-pneumonia Mechanical Fall epigastric pain - possible esophagitis/GERD Hilar/mediastinal lymphadenopathy Chronic A-fib with RVR; on anticoagulation JOSEFINA, resolved Constipation, resolved Hypertension Hyperlipidemia Acute COVID-pneumonia Mechanical Fall Epigastric pain - possible esophagitis/GERD Hilar/mediastinal lymphadenopathy presents with diffuse lower abdominal pain. +constipation x5 days. States he "just does not feel well", not elaborating today on much specific symptoms, ongoing cough reports multiple falls over the last 5 days. Most recently shortly before admission. Denies LOC or head injury. Hypotension CT abdomen/pelvis (12/02): Mild circumferential thickening of the distal esophagus. Circumferential bladder thickening which may be secondary to chronic bladder outlet obstruction. Mild prostatomegaly. MSK: Remote rib fractures. CT chest/abd/pelvis w/contrast (12/06): New mild-moderate groundglass opacities within the lungs. +mild mediastinal and hilar lymphadenopathy. Covid 19+ (12/07) Dr. Ronquillo, pulm consulted s/p ~5-6 days of IV zosyn (12/02-12/07) blood cx (12/02): NGTD CRP improving, pro-brandon normal. No leukocytosis. continue supportive care, pain control, antitussives wean oxygen as tolerated. Seems to be turning the corner now, possible discharge tomorrow Chronic A-fib with RVR; on anticoagulation HR up to 150s this morning/overnight Start metoprolol 25 mg BID now rate controlled in 60-70s JOSEFINA, resolved resolved with IV hydration Constipation, resolved likely contributing to initial discomfort which has not been resolved continue colace BID PRN glycolax lactulose x1 12/05 had 2 large BM 12/05 Hypertension Hyperlipidemia confirm home meds, restart as appropriate VTE: home xarelto Code: Full Dispo: Home, ~24hrs Time Spent Managing Pts Care (In Minutes): 55
--- NOTE | 2024-12-09 09:57 | P.PN ---
Date of Service: 12/09/24 Subjective: feeling better overall denies any new / worsening problems breathing okay afebrile ROS: 10 point ROS as noted above, otherwise negative Physical Exam: GEN: Alert, oriented, NAD CV: Regular rate and rhythm, no edema Pulm: Non-labored respirations on room air, diminished at bases bilaterally ABD: soft, mild tenderness over lower R ribs Neuro: Normal speech, normal affect Problem List: Acute COVID-pneumonia Mechanical Fall epigastric pain - possible esophagitis/GERD Hilar/mediastinal lymphadenopathy Chronic A-fib with RVR; on anticoagulation JOSEFINA, resolved Constipation, resolved Hypertension Hyperlipidemia Acute COVID-pneumonia Mechanical Fall Epigastric pain - possible esophagitis/GERD Hilar/mediastinal lymphadenopathy presents with diffuse lower abdominal pain. +constipation x5 days. States he "just does not feel well", not elaborating today on much specific symptoms, ongoing cough reports multiple falls over the last 5 days. Most recently shortly before admi ssion. Denies LOC or head injury. Hypotension CT abdomen/pelvis (12/02): Mild circumferential thickening of the distal esophagus. Circumferential bladder thickening which may be secondary to chronic bladder outlet obstruction. Mild prostatomegaly. MSK: Remote rib fractures. CT chest/abd/pelvis w/contrast (12/06): New mild-moderate groundglass opacities within the lungs. +mild mediastinal and hilar lymphadenopathy. Covid 19+ (12/07) Dr. Ronquillo, pulm consulted s/p ~5-6 days of IV zosyn (12/02-12/07) blood cx (12/02): NGTD CRP improving, pro-brandon normal. No leukocytosis. continue supportive care, pain control, antitussives wean oxygen as tolerated. Chronic A-fib with RVR; on anticoagulation HR up to 150s this morning/overnight continue metoprolol 25 mg BID now rate controlled in 60-70s JOSEFINA, resolved resolved with IV hydration Constipation, resolved likely contributing to initial discomfort which has not been resolved continue colace BID PRN glycolax lactulose x1 12/05 had 2 large BM 12/05 Hypertension Hyperlipidemia confirm home meds, restart as appropriate VTE: home xarelto Code: Full Dispo: Home Time Spent Managing Pts Care (In Minutes): 55
[2024-12-09 12:07] VITALS: BP 124/92; TEMP 98.5
--- NOTE | 2024-12-09 14:34 | P.DS ---
Admission Date: 12/02/24 Discharge Date: 12/09/24 Disposition: ROUTINE DISCHARGE Discharge Condition: GOOD Reason for Admission: Fall , Abdominal Pain Vital Signs/Physical Exam: Temp Pulse Resp BP Pulse Ox 98.5 F 83 16 124/92 H 92 12/09/24 12:00 12/09/24 12:00 12/09/24 12:00 12/09/24 12:00 12/09/24 12:00 Laboratory Data at Discharge: WBC 6.00 thou/uL (4.3-10.9) 12/08/24 06:28 Hgb 13.3 g/dL (13.6-17.9) L 12/08/24 06:28 Hct 39.4 % (39.6-49.0) L 12/08/24 06:28 Plt Count 281 thou/uL (152-406) 12/08/24 06:28 PT 12.5 SECONDS (10.0-13.0) 12/02/24 16:20 INR 1.10 12/02/24 16:20 APTT 29.2 SECONDS (24.3-36.9) 12/02/24 16:20 Sodium 141 mEq/L (136-145) 12/08/24 06:28 Potassium 3.8 mEq/L (3.5-5.1) 12/08/24 06:28 BUN 7 mg/dL (7-18) 12/08/24 06:28 Creatinine 0.55 mg/dL (0.70-1.30) L 12/08/24 06:28 Glucose 98 mg/dL (74-106) 12/08/24 06:28 Phosphorus 2.9 mg/dL (2.5-4.9) 12/03/24 05:00 Magnesium 1.8 mg/dL (1.6-2.4) 12/08/24 06:28 Total Bilirubin 1.1 mg/dL (0.2-1.0) H 12/08/24 06:28 AST 35 U/L (15-37) 12/08/24 06:28 ALT 42 U/L (16-61) 12/08/24 06:28 Alkaline Phosphatase 96 U/L (45-117) 12/08/24 06:28 Lipase 21 U/L (13-75) 12/02/24 16:20 Home Medications: Rivaroxaban [Xarelto*] 20 mg PO DAILY 02/08/18 Sacubitril/Valsartan [Entresto 97 mg-103 mg Tablet] 1 tab PO BID 07/05/22 Tamsulosin [Flomax*] 0.4 mg PO BEDTIME 12/03/24 Metoprolol Tartrate [Lopressor*] 25 mg PO BID 30 Days #60 tab 12/09/24 New Medications: Metoprolol Tartrate [Lopressor*] 25 mg PO BID 30 Days #60 tab Physician Discharge Instructions: Physician discharge instructions: Patient presented with generalized weakness, fatigue, cough associated with lower abdominal pain and constipation x5 days. CT abdomen on admission was negative for any acute findings, did note other chronic/incidental findings as noted below. He felt some improvement after starting IV antibiotic and IV hydration, but continued with cough, weakness. CT chest done 12/06 noted new mild-moderate groundglass opacities within the lungs and hilar/mediastinal lymphadenopathy. Given his sypmtoms and new CT findings, patient was tested for covid/flu. Patient was found to be covid 19+ on 12/06. Dr. Ronquillo, pulm was consulted who recommended symptomatic treatment/support. Patient completed 5 days of IV zosyn. Blood cultures were without growth since 12/02. Patient remained afebrile without leukocytosis throughout hospitalization. CRP improved with time. Pro-calcitonin within normal limits. COVID-19 infection/pneumonia would explain his symptoms, and is improving. In regards to constipation, suspect constipation lead to abdominal discomfort. Patient was started on a bowel regimen including stool softener, miralax, and lactulose. Patient was able to have large bowel movements with relief on 12/05 and had significant improvement in lower abdominal discomfort. He was noted to have an JOSEFINA on admission with serum creatinine of 1.85, which quickly resolved within 24 hours with IV hydration, holding home entresto, and creatinine on discharge: 0.55 blood pressure remained low-normal on metoprolol. Recommended to hold off on restarting entresto at home. Follow up with PCP / Cardiology to discuss timing of restarting Entresto. 12/06 Patient had an episode of a-fib with RVR, with HR up to the 150s. He's noted to have history of chronic a-fib, on xarelto. He was started on metoprolol 25 mg BID, and was able to attain better rate control. Advised patient to continue metoprolol on discharge. Follow up with PCP in 1-2 weeks for further management. Medications: Metoprolol Follow up: PCP 3-5 days Please call to schedule / confirm appointments CT abdomen/pelvis 1. Mild circumferential thickening of the distal esophagus which could reflect esophagitis 2. Severe atherosclerotic changes.Multivessel coronary artery calcifications. Aortic valve calcifications 3. Circumferential thickening which may be secondary to chronic bladder outlet obstruction 4. Mild prostatomegaly 5. Multilevel degenerative changes in the spine. No acute fracture. Minimal wedge compression deformity at L4 is favored chronic. 6. Remote rib fractures Follow up with an Internal Medicine Physician of your choice: VIJAYA MAGANA MD [address], [address] [place] [address] ACCEPTING NEW PATIENTS! SEUN CHAMPION MD [address], [place] [address] BEVERLEY BRENNAN MD [address] [place] [address] ROBIN LYLE MD [address] [facility] [facility], [place] [address] MARILEE NANCE MD [address] [place] [address] Follow up with a Family Medicine Physician of your choice: PREETHI CORNEJO MD [address] [facility], [address] [place] [address] ACCEPTING NEW PATIENTS! VIJAYA MAGANA MD [address] [facility], [address] [place] [address] ACCEPTING NEW PATIENTS! RONALDO ARIZA, [address] [address] LISE CHEW MD [address], [address] [place] [address] JHOANA REECE MD [address], [address] [place] [address] BOOM RODRIUGEZ MD [address], [place] [address] LORI BRENNAN MD [address] [place] [address] ANA GAXIOLA, [facility] [address], [address] [place] [address] ANA PHAN MD [address], [address] [place] [address] RIGOBERTO PHAN APRN [employer] [address], [address] [place] [address] ELIZABETHMisa GREENFIELD DO [address], [address] [place] [address] Followup: NONE,NONE [Primary Care Provider] -
[2024-12-09] MEDS ORDERED: RIVAROXABAN 20 MG TABLET PO SCH (17:00)
== END 2024-12-09 16:18 | disposition home or self-care (01) | DRG 682 ==
LOC: ER 15:43 → ERHOLD 19:40 → 2ND 12-03 11:02
PROVIDERS: ADMIT Family Medicine; ATTEND Hospitalist
DX: N17.9 Acute kidney failure, unspecified (principal); J12.82 Pneumonia due to coronavirus disease 2019; U07.1 COVID-19; S22.49XA Multiple fractures of ribs, unspecified side, initial encounter for closed fracture; I48.20 Chronic atrial fibrillation, unspecified; N30.00 Acute cystitis without hematuria; I95.9 Hypotension, unspecified; W19.XXXA Unspecified fall, initial encounter; Z91.81 History of falling; E86.0 Dehydration; Z79.01 Long term (current) use of anticoagulants; E78.5 Hyperlipidemia, unspecified; I10 Essential (primary) hypertension; Z90.49 Acquired absence of other specified parts of digestive tract; K59.00 Constipation, unspecified; R59.1 Generalized enlarged lymph nodes
CPT/HCPCS: 36415; 70450; 71045; 71260; 72125; 74018; 74176; 74177; 80048; 80053; 81001; 83605; 83690; 83735; 84100; 84145; 85025; 85027; 85610; 85730; 86140; 87040; 87428; 93005; 96365; 96366; 97116; 97161; 97530; 99285; J2270; J2543; J3475; J7030; J7050; Q9967